=== PATIENT | female | born 1935 | race Caucasian/White ===

== ENCOUNTER 2024-04-02 19:58 | Inpatient (IN) | payer MEDICARE, OTHER, SELFPAY ==
[2024-04-02] VITALS (9 sets, daily range): BP systolic 93–141; BP diastolic 49–97; BMI 26.3; BMI 25.1
[2024-04-02 16:46] LABS: Hemoglobin 13.8 g/dL (12.0-16.0); Mean Corp Hgb Conc. 32.1 g/dL (33.0-37.0); Mean Corpuscular Hgb 26.2 pg (27.0-31.0); Mean Corpuscular Volume 81.7 fL (81.0-99.0); Mean Platelet Volume 9.5 fL (7.4-10.4); Platelet Count 417 10^3/uL (130-400); Red Blood Cell Count 5.26 10^6/uL (4.20-5.40); Red Cell Dist. Width 18.6 % (11.5-14.5)
[2024-04-02 16:47] LABS: White Blood Cell Count 23.6 10^3/uL (4.8-10.8)
--- NOTE | 2024-04-02 16:59 | ED.GENMED ---
History of Present Illness
General
Chief Complaint: Breathing Problem
Source: patient
Exam Limitations: none
Time Seen by Provider: 04/02/24 15:29
Nursing documentation reviewed up to this point in time: agreed with
History of Present Illness
History of Present Illness:
88-year-old female presenting to the emergency department today with concerns of 3 days of shortness of breath. She contacted her PCP and was told it is likely bronchitis. They said if he feels worse go to the ER. Apparently she has been somewhat
tachypneic for multiple weeks according to the family. She is unsure if she had any fevers did have some chills potentially over the past few days.
Review of Systems
Review of Systems
Allergies reviewed?: Yes
All Other Systems: ROS reviewed and negative except as documented in HPI and ROS
Phy Exam
Physical Exam
Physical Exam:
GENERAL: Alert , in no apparent distress
EYE: pupils equal and reactive
NECK: Supple, no significant adenopathy.
ENT: o/p clr, mmm.
CARDIAC: Regular rate and rhythm .
LUNGS: Tachypneic on examination to 30, diminished lung sounds to the left lower lung otherwise clear breath sounds bilaterally,, no wheezes/rales/rhonchi
ABDOMEN: Soft, without focal tenderness, no r/g, no cvat
NEUROLOGICAL: Alert and oriented, no focal neuro deficits
SKIN: Warm and dry, skin intact.
MUSCULOSKELETAL: No edema, well perfused.
PSYCH: Normal and appropriate interaction.
Scores
Heart Failure Risk
Heart Failure Risk Score: Not Applicable
Course
Orders/Labs/Results
Orders:
Orders
04/02/24 15:40
Electrocardiogram (*1) Stat
Reason for Study: Other
Other Reason for Exam: chest pain
EKG- Treatment ONCE
CR Chest Portable - 1 View Urgent
Comment:
Reason For Exam: sob
Reason Study Needs to be Portable: Patient Unstable
04/02/24 16:24
Complete Blood Count/With Diff Urgent
04/02/24 17:06
Comprehensive Metabolic Panel Urgent
Magnesium Urgent
NT-proBNP Urgent
Troponin I Urgent
04/02/24 18:18
Azithromycin 500 mg/250 ml [Zithromax Infusion] 500 mg in 250 ml IV NOW
CefTRIAXone [Rocephin] 2,000 mg IV NOW STA
Abnormal Lab Results
04/02/24 04/02/24
16:24 17:06
WBC 23.6 H 10^3/uL
(4.8-10.8)
MCH 26.2 L pg
(27.0-31.0)
MCHC 32.1 L g/dL
(33.0-37.0)
RDW 18.6 H %
(11.5-14.5)
Plt Count 417 H 10^3/uL
(130-400)
Abs Immat Gran (auto) 0.2 H 10^3/uL
(0-0.05)
Absolute Neuts (auto) 21.0 H 10^3/uL
(1.4-6.5)
Absolute Monos (auto) 1.2 H 10^3/uL
(0.1-0.6)
Immature Gran % 0.8 H %
(0-0.5)
Neutrophils % 88.9 H %
(42.2-75.2)
Lymphocytes % 5.0 L %
(20.5-51.1)
Carbon Dioxide 18 L mmol/L
(22-30)
BUN 19 H mg/dl
(7-17)
Creatinine 1.1 H mg/dL
(0.6-1.0)
Glucose 148 H mg/dl
(70-99)
Magnesium 1.4 L mg/dl
(1.6-2.3)
Total Bilirubin 1.4 H mg/dl
(0.2-1.3)
AST 1022 H* U/L
(14-36)
ALT 464 H U/L
(0-35)
Total Protein 5.4 L g/dl
(6.3-8.2)
Albumin 3.0 L g/dl
(3.5-5.0)
04/02/24 16:24
04/02/24 17:06
Vital Signs
Initial and Last Documented VS:
Initial Vital Signs
Pulse Resp Pulse Ox
104 27 96
04/02/24 15:07 04/02/24 15:07 04/02/24 15:07
Last Documented Vital Signs
Temp Pulse Resp BP Pulse Ox
97.2 F 100 25 106/57 96
04/02/24 16:38 04/02/24 16:15 04/02/24 16:30 04/02/24 15:27 04/02/24 15:07
MDM/Problems Addressed
MDM/Problems Addressed:
88-year-old female presenting to the emergency department today with concerns of worsening shortness of breath over the past few days. Has had some degree of tachypnea over the past few weeks according to family. Was told that she may have
bronchitis by the primary care doctor a few days ago. On arrival here mildly and tachycardic blood pressure in the 100s. Initial labs showing white count of 23.6. Patient does have diminished lung sounds on the left lower lung field. X-ray
showing a pleural effusion. Likely contributing to symptoms. Also elevated BNP examination with leg swelling likely evidence of heart failure. Plan to admit for further treatment and monitoring. Also started on antibiotics concerning the patient
has slightly low blood pressure has been tachypneic also describes some chills White count of 23.6.
*Critical Care Note
Total Time (30-74mins, 75-104mins- exclusive of procedures): Not Applicable
ED Attending Note
-
Portions of this chart may have been created with voice recognition software.� Occasional wrong word or��sound alike� substitutions may have occurred due to the inherent limitations of voice recognition software.
Discharge Plan
Departure
Patient Disposition: Admit
Date of Disposition: 04/02/24
Time of Disposition: 18:28
Admit to: Telemetry
Admit to doctor: Kelli
Presentation/result/management discussed w/ accepting MD/DO: Hospitalist
Patient with high blood pressure during this ER visit?: No
Condition: Good
Covid-19: Not Applicable
Discharge Problem:
Pleural effusion, Transaminitis, Heart failure
Referrals:
Arielle Robertson PA-C [Family Provider] -
Interventions
Interventions:
*Risk Screen - Suicide Last Done: 04/02/24 15:07
*Neglect/Abuse Screening Last Done: 04/02/24 15:07
ED- Fall Risk Assessment Last Done: 04/02/24 16:35
ED- Cardiac Assessment Last Done: 04/02/24 16:35
ED- Pulmonary Assessment Last Done: 04/02/24 16:35
Discharge Date and Time
Print Language: ICELANDIC
[2024-04-02 17:11] LABS: % Basophils 0.2 % (0-2); % Immature Granulocytes 0.8 % (0-0.5); % Monocytes 5.1 % (1.7-9.3); % Neutrophils 88.9 % (42.2-75.2); Absolute Basophils 0.1 10^3/uL (0-0.2); Absolute Immature Granulocytes 0.2 10^3/uL (0-0.05); Absolute Lymphocytes 1.2 10^3/uL (1.2-3.4); Absolute Monocytes 1.2 10^3/uL (0.1-0.6); Nucleated Red Blood Cells % 0 %
[2024-04-02 17:57] LABS: ALT (SGPT) 464 U/L (0-35); Alkaline Phosphatase 63 U/L (38-126); Blood Urea Nitrogen 19 mg/dl (7-17); Calcium 9.2 mg/dl (8.4-10.2); Carbon Dioxide 18 mmol/L (22-30); Chloride 101 mmol/L (98-107); Estimated Creatinine Clearance 31 ml/min; Glucose 148 mg/dl (70-99); Magnesium 1.4 mg/dl (1.6-2.3); Potassium 3.9 mmol/L (3.5-5.1); Sodium 137 mmol/L (135-145); Total Bilirubin 1.4 mg/dl (0.2-1.3); Total Protein 5.4 g/dl (6.3-8.2); eGFR 48.63
[2024-04-02 18:00] LABS: NT-proBNP 17400 pg/ml; Troponin I 0.033 ng/ml
[2024-04-02 18:06] LABS: AST (SGOT) 1022 U/L (14-36)
[2024-04-02] MEDS: ROCEPHIN 2000 MG IV (18:44)
[2024-04-02] MEDS: ZITHROMAX INFUSION 250 IV (18:49)
--- NOTE | 2024-04-02 18:59 | HPS.HSE ---
Family Physician
-
Family Physician: Arielle Robertson
Chief Complaint
-
Shortness of breath.
History of Present Illness
This is an 88-year-old with past medical history significant for diabetes not on antidiabetic medications, hypertension, hyperlipidemia, prior back surgery who presents to the emergency department with worsening shortness of breath over the last few
days.
Due to patient's condition she is unable to provide history. History provided by family members some of whom currently lives with her. Stated that she has been having difficulty breathing for several weeks. She visited her PMD recently for knee
pain and was found to have some lower extremity swelling at that time. She was found to have arthritis and had an injection at that time. Otherwise the family pressure at the providers for additional imaging for shortness of breath. At that time
she was found to have pleural effusion and sent to the emergency department. Patient has no prior history of congestive heart failure. She has no prior history of CAD/AR/stents or strokes. Family thought that she had a recent cough but that
appeared to have cleared. He has had no fevers or chills. No known sick contacts and no recent travel. No history of blood clots. Family does not know of any history of malignancy. She has been having some difficulty sleeping at night and he
has been getting trazodone which has made much more somnolent. Otherwise no medication changes.
On arrival in the ED the patient was afebrile with temp of 99.2, blood pressure was 100/57 with a pulse of 1 rate. She was placed on 4 L nasal cannula to maintain oxygen saturation greater than 95%. Chest x-ray shows a large left-sided pleural
effusion. There is enlarged cardiac silhouette. ECG showed normal sinus rhythm with a left bundle branch block. No acute ischemic changes otherwise. No prior ECGs to compare. Troponin was 0.03. BNP was elevated at 17,000. Patient had a white
count of 23,000 with 89% neutrophils. Chemistries were notable for a creatinine of 1.1 and a BUN of 19. AST was elevated at 1000 ALT of 400. Total bilirubin was 1.4.
Medical History
Past Medical History
Past Medical History: Reports HTN and Hypercholesterolemia
Past Surgical History: Reports Orthopedic (back surgery)
Social History
Tobacco: Non-smoker
Alcohol: Occasional
Drug: None
Personal:
Living: With Family
Employment: Retired
Family History
Family History: Not pertinent
Allergies / Home Medications
Allergies reflects when Allergies were last updated in [facility].
Home Medications with original date entered in [facility]
Allergy/Medication List:
Allergies
Allergy/AdvReac Type Severity Reaction Status Date / Time
No Known Allergies Allergy Unverified 04/02/24 15:09
Home Medications
amlodipine 5 mg tablet 5 mg PO DAILY 04/02/24
famotidine 20 mg tablet 20 mg PO QPM 04/02/24
fenofibric acid (choline) 135 mg capsule,delayed release 135 mg PO DAILY 04/02/24
losartan 100 mg tablet 100 mg PO QPM 04/02/24
metoprolol succinate 25 mg tablet,extended release 24 hr 25 mg PO DAILY 04/02/24
omega 5-rga-lya-fish oil 1,000 mg (120 mg-180 mg) capsule (Fish Oil) 1 cap PO BID 04/02/24
omeprazole 40 mg capsule,delayed release 40 mg PO DAILY 04/02/24
rosuvastatin 5 mg tablet 5 mg PO DAILY 04/02/24
vitamins A,C,R-czjs-bkffee 4,296 mcg-226 mg-90 mg capsule (PreserVision AREDS) 1 cap PO DAILY 04/02/24
Review of Systems
-
History Source: Family
Constitutional: Reports Sleep Disturbance
EENT: Reports No Symptoms
Respiratory: Reports Trouble Breathing
Cardiac: Reports No Symptoms
Abdomen/GI: Reports No Symptoms
: Reports No Symptoms
Musculoskeletal: Reports No Symptoms
Skin: Reports No Symptoms
Neurological: Reports No Symptoms
Endocrine: Reports No Symptoms
Hematologic/Lymphatic: Reports No Symptoms
Psych: Reports No Symptoms
Physical Exam
Vital Signs
Vital Signs
Temp Pulse Resp BP Pulse Ox
97.2 F 100 25 106/57 96
04/02/24 16:38 04/02/24 16:15 04/02/24 16:30 04/02/24 15:27 04/02/24 15:07
Physical Exam
General: Well Developed and Respiratory Distress
HEENT: NormoCephalic, Moist mucous membranes, Atraumatic and PERRLA
Respiratory: Decreased Breath Sounds
Cardiac: S1/S2 and Regular Rhythm
Breast: Deferred by me
GI: Soft, Non Tender and Non Distended
Rectal: Deferred by Provider
Genito-urinary: Other (No urine output so far in ED)
Musculoskeletal: No Clubbing, No Cyanosis, Edema, Left Lower Extremity (2+) and Edema, Right Lower Extremity (1+)
Skin: Dry
Neuro: Alert and Oriented (oriented to person)
Hematologic/Lymphatic: No Lymphadenopathy
Psych: Calm
Laboratory Results
-
04/02/24 16:24
04/02/24 17:06
Laboratory Results
Total Bilirubin 1.4 mg/dl (0.2-1.3) H 04/02/24 17:06
AST 1022 U/L (14-36) H* 04/02/24 17:06
ALT 464 U/L (0-35) H 04/02/24 17:06
Alkaline Phosphatase 63 U/L (38-126) 04/02/24 17:06
Troponin I 0.033 ng/ml 04/02/24 17:06
Data Reviewed
-
Diagnostic Radiology: Image Personally Visualized and interpreted
Medical Tests (Nuc Med, Echo, EKG etc): Image Personally Visualized and interpreted
Lab Data: Labs Reviewed by me
Old Records: Reviewed
Impression/Plan
-
IMPRESSION:
88 y.o with fairly benign past medical history notable for HTN, HLD, DM II (not currently on meds) and prior UTIs, mild/moderate dementia per family presenting to ED with subacute sob and a large left pleural effusion. She is afebrile, has no
cough, chills but has a leukocytosis to 23. She has elevated BNP and peripheral edema suggestive of congestive heart failure. BP is relatively low at 90/50 compared to prior but otherwise stable. She has moderate oxygen requirements.
PLAN:
Pleural Effusion - Suspect secondary to volume overload versus malignant effusion given unilateral presentation. Seeing her labs earlier this year, she has normal LFTs so unlikely from cirrhosis or renal failure. Moderate oxygen requirement but
likely ok for tap in am.
- admit to IMU
- continue supplemental oxygen
- attempt diuresis
- IR consult for diagnostic and therapeutic tap in am
CHF - Elevated BNP and volume overload. Cannot rule out new NICM secondary to acute viral infection versus new ischemic cardiomyopathy vs valvular insufficiency
- viral panel
- check tsh/free t4
- holding losartan and norvasc for now
- continue metoprolol with hold parameters
- lasix 40mg iv q 12 w/ hold parameters
- echo
- may need ischemic w/u
- cardiology consult
Leukocytosis - Unexplained leukocytosis at this point. No obvious source of infection but hx of UTI and cannot rule out pna. No recent hospitalization
- ceftriaxone/azithromycin for now
- u/a pending
- blood cultures if febrile
- MRSA swab.
Transaminitis - Given volume overload, suspect congestive hepatopathy
- RUQ u/s
- check acute hepatitis panel
DVT PPX - heparin sq
Code status - DNR per discussion with Family members present.
[2024-04-02 20:05] LABS: COVID-19 Antigen Negative (Negative)
[2024-04-02] MEDS: LASIX 40 MG IV (21:34)
[2024-04-03] VITALS (37 sets, daily range): BP systolic 81–160; BP diastolic 32–88; PULSE 75–77; O2SAT 98; BMI 23.5
--- NOTE | 2024-04-03 01:00 | PTCARENOTE ---
Pt received from ED RN. Pt AA)x3, forgetful at times, tired. Family at bedside, family assisted in completing admission questions with Pts consent. Pt NSR on monitor with BBB. Pt on 4L 02, mouth breathing, encouraged to breath via nose. Sacral wound
present on admission, care provided, WOC consulted. Assessment as documented, call light in reach.
[2024-04-03] MEDS: HEPARIN 5000 UNITS SC ×2 (02:16→08:02)
[2024-04-03] MEDS: DUONEB 3 ML INH (02:45)
--- NOTE | 2024-04-03 03:03 | PTCARENOTE ---
Increasing expiratory wheezes and increased work of breathing assessed. Satting 93% on 4L. [employer]GRAM MANAGER contacted for PRN breathing tx. Order received. RT contacted to administer tx.
--- NOTE | 2024-04-03 03:06 | PTCARENOTE ---
Pt expressed nee to urinated. Pt provided with BP, no output assessed. Bladder scan shows only 25 ml urine. Care is ongoing.
[2024-04-03 06:14] LABS: ALT (SGPT) 528 U/L (0-35); Albumin 2.7 g/dl (3.5-5.0); Alkaline Phosphatase 58 U/L (38-126); Direct Bilirubin 0.4 mg/dl (0.0-0.4); Magnesium 1.3 mg/dl (1.6-2.3); Total Bilirubin 0.5 mg/dl (0.2-1.3); Total Protein 4.9 g/dl (6.3-8.2)
[2024-04-03 06:17] LABS: AST (SGOT) 1226 U/L (14-36)
[2024-04-03 06:29] LABS: Procalcitonin 7.26 ng/ml (0.0-0.25)
[2024-04-03 06:32] LABS: TSH Reflex To Free T4 2.75 uIU/ml (0.47-4.68)
--- NOTE | 2024-04-03 07:13 | PTCARENOTE ---
AST and ALT critical with am labs, procal 7.25 , [employer]GER [employer] notified. abd u/s ordered for am.
[2024-04-03] MEDS: PROTONIX 40 MG PO (08:01)
[2024-04-03] MEDS: OCUVITE SOFTGEL 1 CAP PO (08:02)
[2024-04-03] MEDS: CRESTOR 5 MG PO (08:02)
[2024-04-03] MEDS: LASIX 40 MG IV (08:02)
[2024-04-03] MEDS: TOPROL XL 25 MG PO (08:02)
[2024-04-03 10:10] LABS: Body Fluid pH 7.39
[2024-04-03 10:22] LABS: Body Fluid Mononuclear 48.1 %; Body Fluid Polymorphonuclear 51.9 %; Body Fluid WBC 678 /CUMM
[2024-04-03 10:23] LABS: Body Fluid LDH 160 U/L; Body Fluid Protein 2.2 g/dl
[2024-04-03 10:25] LABS: Body Fluid Second Tech HB
--- NOTE | 2024-04-03 10:30 | WOUNDNOTE ---
[facility] RN note: Patient admitted with CHF. s/p thoracentesis today. She lives with her son.
See H&P for complete history.
PMH: DM, HTN, back surgery, UTI's, dementia.
Wound Location and type/assessment: Patient admitted with: coccyx deep dermal stage 2 pressure injury. Small scabbed stage 1 sacral pressure injury. Several small scabbed areas on sacral/buttocks suspect r/t patient scratching vs stage 2 pressure.
R groin yeast appearing rash. Heels blanchable red/boggy. Her daughter who is visiting stated her mother spends a lot of time in her recliner at home. She does sleep in her bed at night.
Appetite: Currently NPO for a test, otherwise good.
Pressure redistribution devices in place: [employer] air bed. She turns in bed with assistance.
Plan: Sacral shaped silicone border foam maintained. Protective foam applied to heels. Patient turned to R semi side lying position with help from PRIMO Okeefe. Heels off bed with air chair cushion. Instructed 2 daughters pressure injury prevention
measures and to have patient take air chair cushion when discharged.
Confirmed orders with Dr. Castelan and discussed with PRIMO Okeefe.
Care plan to be updated and will follow as needed.
Note to case management requested for discharge: VN if goes home.
Recommend follow up at wound care center upon discharge.
[2024-04-03] MEDS: OMNIPAQUE 50 ML PO (10:42)
[2024-04-03] MEDS: MAGNESIUM SULFATE 50 IV (11:07)
[2024-04-03 11:41] LABS: Hepatitis B Surface Antigen Negative (Negative)
[2024-04-03 11:46] LABS: Glycohemoglobin (HgbA1c) 6.2 % (4.0-5.6)
[2024-04-03 12:00] LABS: Hepatitis B Core Ab, Total Negative (Negative); Hepatitis B Surface Antibody Negative; Hepatitis C Antibody Negative (Negative)
[2024-04-03] MEDS: ULTRAM 25 MG PO (12:48)
--- NOTE | 2024-04-03 14:08 | W.PN.HOSP.TC ---
Today's Communication/Plan
-
see note
Assessment / Plan
Assessment / Plan
TTE
Mild/moderately reduced left ventricular systolic function. Left ventricular
ejection fraction is 40-45%.
Global hypokinesis with abnormal (paradoxical) septal motion consistent with
left bundle branch block.
Mild/moderate eccentric mitral regurgitation.
Mild aortic regurgitation.
Large pericardial effusion. There is evidence of RA collapse.
CT a/p
Moderate right pleural effusion with adjacent compressive atelectasis.
Small left pleural effusion after thoracentesis. Adjacent atelectasis. No evidence for pneumothorax within the left lower chest.
Moderate to large pericardial effusion as described. Elevation right hemidiaphragm. Fatty infiltration of the liver.
No evidence for bowel obstruction. No evidence of free intraperitoneal air.
2 mm probable nephrolith within the central lower pole the right kidney. Bilateral small renal cysts, including a hyperdense cyst arising from the lower pole the left kidney. No further imaging follow-up for these small cysts is needed.
Bony degenerative changes as described.
Moderate diffuse subcutaneous edema. Small amount of free fluid within the pelvic cul-de-sac.

1. Sepsis -Hypotension/leukocytosis
-Patient brought in mainly for shortness of breath
-WBC 21k, neutrophil dominant, procal 7.26
-Chest x-ray showing bilateral effusion mainly on the left side
-CT abdomen pelvis report as above
-Status post left-sided thoracentesis of 1.1 L fluid, low concern of infection based on differential
-Check UA/Urine cs
-Blood cs if spikes fever
-Follow-up pericardiocentesis fluid study as well
-Maintained on empiric Rocephin/azithromycin for possible pulmonary souce
2. Pericardial effusion
-Echocardiogram showing large pericardial effusion with evidence of RA collapse
-Cardiology planning to take patient to [facility] for pericardiocentesis
3. Acute systolic heart failure
Left bundle branch block
-proBNP 17,000, no previous history of CAD/NE
-Initial troponin negative in ER, follow-up troponin pending
-Patient started on IV Lasix, vitally stable and may need to be held if patient develops hypotension.
4. Acute hepatitis
-ALT/530/AST 1230. Normal ALP/T bilirubin
-Suspected congestive hepatopathy from cardiac tamponade
-Check hepatitis panel
-Right upper quadrant ultrasound pending, no major structural abnormality on CTAP
-Hold Crestor/Tylenol for now
-GI evaluation requested
5. Sacral/coccyx stage I/II pressure inj -POA
-No signs of infection on exam
-Wound care nurse evaluated
6. Type II DM - new dx
-Hemoglobin A1c of 6.2
-Maintain on insulin sliding scale
7. Suspected urinary retention
-Continue bladder scan/straight cath protocol
DVT PPX - heparin
DNR
Total time spent : 58 mins
I personally saw and examined the patient.
I have reviewed all diagnostic interpretations and treatment plans as written.
Time includes patient management by me, time spent at the patients bedside, time to review lab and imaging results, discussing patient care, documentation in the medical record, and time spent with the family or caregiver and discussing care plan
with RN/Consultants.
Anticipated Discharge: > 48 hours
Subjective/Interval History
-
Date of Service: April 03, 2024
Patient somnolent, waking up with appropriate answers
Some left shoulder pain
Denies having any abdominal pain/nausea/vomiting
Afebrile overnight
Objective Data
-
Labs:
Laboratory Results
04/03/24 04/03/24
05:11 09:49
WBC Pending
Hgb Pending
Hct Pending
Plt Count Pending
PT Pending
INR Pending
Sodium Pending
Potassium Pending
Chloride Pending
Carbon Dioxide Pending
BUN Pending
Creatinine Pending
Glucose Pending
Calcium Pending
Total Bilirubin 0.5
AST 1226 H*
ALT 528 H*
Alkaline Phosphatase 58
Vital Signs:
Vital Signs
Temp Pulse Resp BP Pulse Ox
98.3 F 81 19 156/58 93
04/03/24 11:24 04/03/24 08:48 04/03/24 08:48 04/03/24 08:48 04/03/24 08:48
Review of Systems
-
Respiratory: Reports No Symptoms
Cardiac: Reports No Symptoms
Abdomen/GI: Reports No Symptoms
Physical Exam
-
General: Comfortable and Obese
HEENT: Oxygen
Respiratory: Clear to Auscultation
Cardiac: Regular Rhythm and S1/S2; Negative Murmur or Rub
GI: Soft, Nontender and Nondistended
Musculoskeletal: No Edema
Neuro: Awake, Alert, Oriented, No Motor Deficits and Nonfocal/Grossly Intact
Psych: Calm
--- NOTE | 2024-04-03 14:29 | CON.GI ---
Addendum entered and electronically signed by Ngoc Merida Do, MD 04/03/24 18:12:
Correction:
I personally performed a history and physical exam of the patient and discussed management with the resident. I reviewed the resident's note and agree with the documented findings and plan of care HPI/CC.
Addendum entered and electronically signed by Ngoc Merida Do, MD 04/03/24 18:11:
I saw and examined the patient.
The SENIOR QUALITY TECHNICIAN's note was reviewed and I agree with the note.
Comment: Ladi is an 88yo W with diet controlled DM, HTN and HL who presented for worsening SOB and bilateral LE swelling. GI consulted for elevated LFTs. She denies h/o liver disease in past. No new meds or ETOH intake. She denies herbals.
During this hospitalization she had thoracentesis and workup for new CHF. Vitals stable but upon admission mildly hypotensive. Exam abd soft, ND, NTTP, NABS, decrease BS in bases. Labs reviewed LFTs in hepatocellular pattern.
Impression
- Elevated LFT in hepatocellular pattern
ddx includes drug induce liver injury from acetaminophen use and congestive hepatopathy
- Hepatic steatosis
- SOB
- Pleural and pericardial effusion
- CHF
- DM
- HTN
- HL
- Elevated procalcitonin and WBC
Recommendations
- Serial LFTs
- Await viral hepatitis serology
- Stop acetaminophen check level
- Check RUBÉN
- Optimize CHF and hemodynamics
- May benefit from outpatient fibroscan
Will follow with you
Original Note:
Consultation
-
Date/Time Consultation Requested: 04/03/24,10:04
Date/Time Consultation Performed: 04/03/24,15:00
Requesting Provider: Dr.Janak Castelan
Performing Provider: Dr.Hannah Estrella
Reason for Consultation: Elevated liver enzymes
Medical History
Chief Complaint / HPI
Chief Complaint: Shortness of breath
History of Present Illness:
Patient is an 88-year-old female with past medical history significant for diabetes ,essential hypertension and hyperlipidemia. She she lives with her son and her daughters help in taking care of her.
She regularly visits her primary care physician and was recently treated for bronchitis and was told to go to the emergency in case of worsening of shortness of breath. She presented to the emergency with complaints of worsening shortness of
breath for the last 3 days along with bilateral pedal edema and weakness.SOB was gradual,progressive and patient declined from her baseline function status An EKG done in the ER showed left bundle branch block but there was no previous EKG
available to compare, a complete blood count showed leukocytosis with a TLC count of 23.6, procalcitonin 7.2, her BNP was elevated up to 17,000. A chest x-ray was done that showed bilateral pleural effusion, pleurocentesis was done and the fluid
was sent for evaluation. GI was consulted for elevated liver enzymes with an ALT of 528 and AST of 1226 with normal bilirubin levels.
She complains of joint pains for which she uses about 6 Tylenol tablets a week, statin for her hyperlipidemia. She occasionally will maybe 1 glass of wine on holidays. She does not smoke or use any other drugs, no history of tattooing or body
piercing, she denies any nausea, vomiting, abdominal pain, indigestion, heartburn, diarrhea, constipation, recent weight gain or loss, any blood in stools or vomitus, and melena. She does not take any herbal supplements. She has never been
screened for hepatitis B or C, she denies any personal or family history of liver disease or blood disorders and she did not have any blood transfusions in the recent past.
She had a colonoscopy done in 2015 that showed multiple small diverticuli in the sigmoid. She did not have any endoscopies done. She has generalized body edema, CT abdomen showed bilateral pleural effusion along with pericardial effusion, there
was fatty infiltration of the liver but complete study of liver could not be done due to artifacts and ultrasound of the right upper quadrant is pending.
Past Medical History
Past Medical History: HTN, Hypercholesterolemia and NIDDM
Past Surgical History: Orthopedic (Back surgery)
Social History
Tobacco: Former Smoker (in her teens,Quit more than 50 years ago)
Alcohol: Occasional
Drug: None
Personal:
Living: With Family
Employment: Retired
Family History
Family History: Reviewed & Not Pertinent
Allergies / Home Medications
Allergy/AdvReac Type Severity Reaction Status Date / Time
No Known Allergies Allergy Unverified 04/02/24 15:09
�Medication �Instructions �Recorded
amlodipine 5 mg tablet 5 mg PO DAILY Blood Pressure 04/02/24
famotidine 20 mg tablet 20 mg PO QPM Gastrointestinal Issue 04/02/24
fenofibric acid (choline) 135 mg 135 mg PO DAILY High Cholesterol 04/02/24
capsule,delayed release
losartan 100 mg tablet 100 mg PO QPM Blood Pressure 04/02/24
metoprolol succinate 25 mg 25 mg PO DAILY Blood Pressure 04/02/24
tablet,extended release 24 hr
omega 0-pqn-cib-fish oil 1,000 mg 1 cap PO BID Supplement 04/02/24
(120 mg-180 mg) capsule (Fish Oil)
omeprazole 40 mg capsule,delayed 40 mg PO DAILY Gastrointestinal 04/02/24
release Issue
rosuvastatin 5 mg tablet 5 mg PO DAILY High Cholesterol 04/02/24
vitamins A,C,D-fkdv-vdfoeq 4,296 1 cap PO DAILY Supplement 04/02/24
mcg-226 mg-90 mg capsule
(PreserVision AREDS)
Review of Systems
-
All other systems: A 12 pt ROS was Negative except as stated above in HPI
Vital Signs
Temp Pulse Resp BP Pulse Ox
98.3 F 81 19 156/58 97
04/03/24 11:24 04/03/24 08:48 04/03/24 08:48 04/03/24 08:48 04/03/24 09:00
Physical Exam
Exam
General: Other (Looks lean and weak and appears confused)
HEENT: Anicteric and Moist Mucous Membranes
Respiratory: Clear and Wheezes (No wheeze or rhonchi)
Cardiac: S1/S2, Regular Rhythm and Other (No murmur)
GI: Soft, Non Tender, Normal Bowel Sounds and Distended (Mildly distended)
Genito-urinary: No Costovertebral Tender
Musculoskeletal: Edema (Bilateral pitting edema of legs and feet)
Skin: Warm and Dry
Neuro: Awake and Other (Appears to be confused)
Hematologic/Lymphatic: No Lymphadenopathy
Psych: Calm and Other (Cooperative)
Results
WBC 23.6 10^3/uL (4.8-10.8) H 04/02/24 16:24
Hgb 13.8 g/dL (12.0-16.0) 04/02/24 16:24
Hct 43.0 % (37.0-47.0) 04/02/24 16:24
MCV 81.7 fL (81.0-99.0) 04/02/24 16:24
Plt Count 417 10^3/uL (130-400) H 04/02/24 16:24
Absolute Neuts (auto) 21.0 10^3/uL (1.4-6.5) H 04/02/24 16:24
Sodium 137 mmol/L (135-145) 04/02/24 17:06
Potassium 3.9 mmol/L (3.5-5.1) 04/02/24 17:06
Chloride 101 mmol/L (98-107) 04/02/24 17:06
Carbon Dioxide 18 mmol/L (22-30) L 04/02/24 17:06
BUN 19 mg/dl (7-17) H 04/02/24 17:06
Creatinine 1.1 mg/dL (0.6-1.0) H 04/02/24 17:06
Calcium 9.2 mg/dl (8.4-10.2) 04/02/24 17:06
Total Bilirubin 0.5 mg/dl (0.2-1.3) 04/03/24 05:11
AST 1226 U/L (14-36) H* 04/03/24 05:11
ALT 528 U/L (0-35) H* 04/03/24 05:11
Alkaline Phosphatase 58 U/L (38-126) 04/03/24 05:11
Hep Bs Antibody Negative 04/03/24 05:11
Hep B Core Total Ab Negative (Negative) 04/03/24 05:11
Hepatitis C Antibody Negative (Negative) 04/03/24 05:11
Diagnostic Image Results:
Prior GI Procedures:
EGD: None
Colonoscopy: 2015, diverticulosis in sigmoid
Assessment / Plan
-
IMPRESSION
Patient is a 88-year-old female with past medical history of hypertension, hyperlipidemia, diabetic with lifestyle modifications, recently had steroid injections in her knees for pain. She is in fluid overload, with bilateral pleural effusion,
pericardial effusion, bilateral pedal edema, difficulty in breathing and weakness. She has a leukocyte count of 23.6 with 89% neutrophils, procalcitonin 7.25, elevated ALT 528 and AST 1226 with normal bilirubin levels. She is admitted for the
workup of sepsis/heart failure. GI involved for evaluation of elevated liver enzymes.
ASSESSMENT
Elevated liver enzymes
Patient has various metabolic conditions including diabetes, hypertension, hyperlipidemia
She takes about 6 tablets of Tylenol per week for her arthritis/back pain
She takes 5 mg of rosuvastatin at night daily
She has never been screened for hepatitis AB and C
No personal or family history of liver disease/genetic disorders
She drinks alcohol occasionally
Denies any herbal medications, any tattooing, any body piercing
She denies any nausea or vomiting ,weight loss, weight gain, melena, blood in stools
CT abdomen shows fatty infiltration of the liver, limited study due to artifacts
ALT 528, AST 1226, ALP 58, total bilirubin 0.5
INR pending
Ultrasound of right upper quadrant pending
Pleural effusion secondary to heart failure?
No history of ischemic heart disease
Hypertensive, diabetic
Hyperlipidemia's
Presented with shortness of breath
Chest x-ray bilateral pleural effusions
CT abdomen-bilateral pleural effusion and pericardial effusion
proBNP 17,000
Left ventricular ejection fraction 40 to 45%04/03
EKG left bundle branch block
On furosemide 40 mg IV twice daily
Pericardiocentesis in plan
SEPSIS
Total leukocyte count 23.6
Procalcitonin 7.25
Blood cultures pending
On Rocephin and Zithromax
PLAN
Currently patient has no GI symptoms
Patient has some risk factors like metabolic syndrome/heart failure?/Sepsis/Tylenol use/statin use
Discontinue Tylenol and statin
Repeat liver function tests
Follow INR/albumin
Follow hepatitis A, B, C screenings
Manage sepsis as per medical team
Manage heart failure as per medical team
Diabetes mellitus--HbA1c 6.2
Hypertension--continue home medications
Hyperlipidemia's-discontinue statin
Arthritis-discontinue Tylenol
-
-
Thank you for consultation and allowing me to participate in the patient's care. Please call the information security associate GI physician during the after hours with any questions or concerns.
[2024-04-03 14:39] LABS: Hepatitis A Antibody, Total Negative (Negative)
[2024-04-03 17:33] LABS: Body Fluid Hematocrit < 1.0 %
--- NOTE | 2024-04-03 17:34 | PTCARENOTE ---
Pt received from petroleum refinery laborer s/p pericardiocentesis. 610mL drained during procedure. Pt returned with gravity drain. Serosanguineous fluid in collection container. Procedural site CDI. VSS. Echo s/p pericardiocentesis showing trace pericardial effusion
compared to earlier echo which showed large pericardial effusion. Pt resting in bed. Family at bedside.
[2024-04-03 17:40] LABS: Body Fluid Glucose < 30 mg/dl; Body Fluid Protein 3.8 g/dl
[2024-04-03 17:41] LABS: Body Fluid LDH 1658 U/L
--- NOTE | 2024-04-03 18:05 | ITS.CL.PN ---
Luster Repairer - Procedure Note
Procedure
Procedure Note:
PERICARDIOCENTESIS REPORT
Date of Procedure: 04/03/2024
Referring: Abisai Modi MD
�
PROCEDURE SUMMARY:
Successful pericardiocentesis via subxiphoid approach with removal of 610 mL of yellowish-brown turbid fluid from the pericardial space
�
DESCRIPTION OF PROCEDURE: The patient was referred for diagnostic and therapeutic pericardiocentesis. Using a micropuncture needle, the pericardial space was entered on the first attempt via subxiphoid approach. A 6 [place] sheath was placed into
the pericardial space followed by a pigtail catheter. 60 cc of very turbid yellowish-brown fluid was removed and sent for the usual suspects including cell count, culture, protein, LDH, TB. The majority of the fluid was hand-delivered to the
pathology lab for cytology. Bubble contrast injection demonstrated clean entry into the pericardium as seen on echocardiography. At the conclusion of the procedure there was only trace pericardial effusion visible. There were no procedural
complications.
�
�
Radiation (mGy): 2.5
DAP (cm2.Gy): 0.1
�
CONCLUSIONS: Successful pericardiocentesis with removal of 610 mL yellow is brown turbid fluid from the pericardial space. A drain was left in and will be evaluated for removal in 24 hours
�
Copy to: Abisai Modi MD, Arielle Robertson PA-C ([email or web address])
�
Pedro Horner MD, FORMERLY [facility], [facility]
�
--- NOTE | 2024-04-03 18:06 | PTCARENOTE ---
Pt with no urine output. Bladder scan showed 441mL. Straight cath per protocol. 450mL drained.
[2024-04-03 18:12] LABS: Urine Albumin Trace (Neg - Trace); Urine Bilirubin Negative (Negative); Urine Character Clear (Clear); Urine Color Yellow; Urine Glucose Negative (Negative); Urine Ketone Negative (Negative); Urine Leukocyte Negative (Negative); Urine Nitrite Negative (Negative); Urine Occult Blood Negative (Negative); Urine Urobilinogen Negative (Neg - 1+)
[2024-04-03] MEDS: FLOMAX 0.4 MG PO (18:34)
[2024-04-03] MEDS: ZITHROMAX 500 MG PO (20:51)
[2024-04-03] MEDS: ROCEPHIN 1000 MG IV (20:51)
[2024-04-03] MEDS: STERILE WATER FOR INJECTION 10 ML IV (20:52)
[2024-04-03] MEDS: DESENEX/MITRAZOL/ZEASORB 1 APPLIC TOPICAL (20:57)
[2024-04-03 22:21] LABS: Blood Urea Nitrogen 26 mg/dl (7-17); Calcium 8.8 mg/dl (8.4-10.2); Carbon Dioxide 19 mmol/L (22-30); Chloride 100 mmol/L (98-107); Creatine Phosphokinase 27 U/L (30-135); Estimated Creatinine Clearance 25 ml/min; Glucose 113 mg/dl (70-99); LDH 379 U/L (120-246); Potassium 3.9 mmol/L (3.5-5.1); Sodium 134 mmol/L (135-145); eGFR 36.41
--- NOTE | 2024-04-03 23:42 | W.PN.UPDATE ---
Update Note
Progress Note Update
hr 120-140, bp 131/78, denied sob or chest pain.
EKG with a-fib RVR. CBC, bmp, mag ordered. One time order of IV Lopressor 5 mg was given.
K is 3.4 repleted as needed.
[2024-04-03] MEDS: LOPRESSOR 5 MG IV (23:47)
--- NOTE | 2024-04-03 23:59 | PTCARENOTE ---
Monitor alarming HR of 150-160's and interpreting rhythm as afib. EKG obtained confirming Pt in afib with rvr. WEATHER TEACHER made aware. EKG sent to CONSTRUCTION REPRESENTATIVE. order for labs received, obtained and sent. Order received for 5mg Lopressor IV. Medication administered.
Post administration BP 118/63(80). HR 110. Care is ongoing.
[2024-04-04] VITALS (39 sets, daily range): BP systolic 79–135; BP diastolic 33–107; BMI 24.9
[2024-04-04 00:19] LABS: % Basophils 0.2 % (0-2); % Eosinophils 0.2 % (0-6); % Immature Granulocytes 0.4 % (0-0.5); % Lymphocytes 13.4 % (20.5-51.1); % Monocytes 5.5 % (1.7-9.3); % Neutrophils 80.3 % (42.2-75.2); Absolute Lymphocytes 1.5 10^3/uL (1.2-3.4); Absolute Monocytes 0.6 10^3/uL (0.1-0.6); Hemoglobin 12.5 g/dL (12.0-16.0); Mean Corp Hgb Conc. 32.1 g/dL (33.0-37.0); Mean Corpuscular Hgb 25.9 pg (27.0-31.0); Mean Corpuscular Volume 80.7 fL (81.0-99.0); Mean Platelet Volume 9.9 fL (7.4-10.4); Nucleated Red Blood Cells % 0 %; Platelet Count 280 10^3/uL (130-400); Red Blood Cell Count 4.83 10^6/uL (4.20-5.40); Red Cell Dist. Width 18.6 % (11.5-14.5); White Blood Cell Count 11.2 10^3/uL (4.8-10.8)
[2024-04-04 00:28] LABS: Blood Urea Nitrogen 33 mg/dl (7-17); Calcium 8.1 mg/dl (8.4-10.2); Carbon Dioxide 23 mmol/L (22-30); Chloride 99 mmol/L (98-107); Estimated Creatinine Clearance 22 ml/min; Glucose 107 mg/dl (70-99); Magnesium 1.9 mg/dl (1.6-2.3); Potassium 3.4 mmol/L (3.5-5.1); Sodium 134 mmol/L (135-145); eGFR 31.02
--- NOTE | 2024-04-04 00:54 | PTCARENOTE ---
Pt returned to NSR in the 60's. SENIOR VALIDATION ENGINEER notified of lab results.
[2024-04-04] MEDS: KLOR-CON 40 MEQ PO (02:36)
[2024-04-04 05:39] LABS: Hematocrit 36.4 % (37.0-47.0); Hemoglobin 11.7 g/dL (12.0-16.0); Mean Corp Hgb Conc. 32.1 g/dL (33.0-37.0); Mean Corpuscular Hgb 26.2 pg (27.0-31.0); Mean Corpuscular Volume 81.4 fL (81.0-99.0); Mean Platelet Volume 9.8 fL (7.4-10.4); Platelet Count 278 10^3/uL (130-400); Red Blood Cell Count 4.47 10^6/uL (4.20-5.40); Red Cell Dist. Width 18.3 % (11.5-14.5); White Blood Cell Count 10.3 10^3/uL (4.8-10.8)
[2024-04-04 05:59] LABS: ALT (SGPT) 270 U/L (0-35); AST (SGOT) 231 U/L (14-36); Acetaminophen < 10 ug/ml (10-30); Albumin 2.4 g/dl (3.5-5.0); Alkaline Phosphatase 57 U/L (38-126); Blood Urea Nitrogen 36 mg/dl (7-17); Calcium 8.1 mg/dl (8.4-10.2); Carbon Dioxide 21 mmol/L (22-30); Chloride 101 mmol/L (98-107); Estimated Creatinine Clearance 24 ml/min; Glucose 100 mg/dl (70-99); Magnesium 1.9 mg/dl (1.6-2.3); Potassium 4.7 mmol/L (3.5-5.1); Sodium 134 mmol/L (135-145); Total Bilirubin 0.6 mg/dl (0.2-1.3); Total Protein 4.6 g/dl (6.3-8.2); eGFR 33.52
[2024-04-04] MEDS: TOPROL XL 25 MG PO ×2 (08:39→11:53)
[2024-04-04] MEDS: FLOMAX 0.4 MG PO (08:39)
[2024-04-04] MEDS: OCUVITE SOFTGEL 1 CAP PO (08:39)
[2024-04-04] MEDS: PROTONIX 40 MG PO (08:39)
[2024-04-04] MEDS: DESENEX/MITRAZOL/ZEASORB 1 APPLIC TOPICAL ×2 (08:39→22:35)
--- NOTE | 2024-04-04 10:18 | W.PN.GI.CBS2 ---
Today's Communication / Plan
-
LFTs improved dramatically suggestive of cause as congestive hepatopathy
GI will sign off as no further inpatient liver workup
Consider fibroscan outpatient basis. FU with me OP next available (d/c paperwork updated)
Assessment / Plan
-
Ladi is an 88yo W with diet controlled DM, HTN and HL who presented for worsening SOB and bilateral LE swelling. GI consulted for elevated LFTs. She denies h/o liver disease in past. No new meds or ETOH intake. She denies herbals. During this
hospitalization she had thoracentesis and workup for new CHF. Labs reviewed LFTs in hepatocellular pattern. CTAP with hepatic steatosis
Impression
- Elevated LFT in hepatocellular pattern
Likely from congestive hepatopathy given rapid improvement and possibly acetaminophen use
acetaminophen level negative
viral hepatitis serologies negative
- Hepatic steatosis
- SOB
- Pleural and pericardial effusion
- CHF
- DM
- HTN
- HL
- Elevated procalcitonin and WBC
Recommendations
- Serial LFTs, much improved
- Optimize CHF and hemodynamics
- May benefit from outpatient fibroscan
- Viral hepatitis serologies and acetaminophen levels negative
No new GI recs. Will sign off please call for questions .
Subjective
Subjective
Date of Service: April 04, 2024
She had pericardiocentesis yesterday. Overnight had rapid afib. Today eating breakfast denies abd pain nausea or vomiting.
Objective
Data Reviewed
Laboratory Data:
Laboratory Results
04/04/24 05:18
04/04/24 05:18
Laboratory Results
PT Cancelled 04/03/24 09:49
INR Cancelled 04/03/24 09:49
Magnesium 1.9 mg/dl (1.6-2.3) 04/04/24 05:18
Total Bilirubin 0.6 mg/dl (0.2-1.3) 04/04/24 05:18
AST 231 U/L (14-36) H 04/04/24 05:18
ALT 270 U/L (0-35) H 04/04/24 05:18
Alkaline Phosphatase 57 U/L (38-126) 04/04/24 05:18
Vital Signs and I&O:
Vital Signs
Temp Pulse Resp BP Pulse Ox
97.5 F 130 18 107/77 94
04/04/24 07:24 04/04/24 08:39 04/04/24 07:24 04/04/24 05:45 04/04/24 05:45
I&O
04/03/24 04/04/24 04/05/24
06:59 06:59 06:59
Intake Total 240 / 240
Output Total 950 / 950
Balance -710 / -710
Physical Exam
Physical Exam
GEN: No acute distress, conversant, pleasant
HEENT: anicteric, extraocular movements intact, clear oropharynx without exudates
GI: soft, non-distended, not tender to palpation, normal active bowel sounds, no hepatosplenomegaly
EXT: warm, well perfused, 2+ pitting edema bilaterally
NEURO: AAOx3, non-focal
--- NOTE | 2024-04-04 10:39 | W.PN.CD ---
Today's Communication / Plan
-
discussed with interventional cards: pericardial drain will be removed today (family at bedside and updated)
repeat echo Saturday
IV lasix today
Impression / Plan
-
Pericardial effusion
-s/p pericardiocentesis for 610cc on 04/03
-ddx: HF, malignancy
-drain out today
-f/u echo Saturday
Paroxysmal A fib with RVR, new
-increase Toprol XL
-CHADS2-VASC = 6. No OAC yet, with pericardial drain being pulled today, then repeat echo Saturday
Cardiomyopathy (unspecified) EF 40-45%, with acute HFmEF
-start with Toprol XL titration
-start with lasix 40mg IV daily, with close monitoring of labs, weight, tele; now that pericardial effusion is drained
HTN
-hold home losartan and amlodipine to allow titration of Torpol
LBBB
Mild/moderate MR
Mild AR
Physical Exam
Vital Signs/Labs
Vital Signs
Temp Pulse Resp BP Pulse Ox
97.5 F 76 20 102/74 94
04/04/24 07:24 04/04/24 10:30 04/04/24 10:30 04/04/24 10:00 04/04/24 10:30
04/03/24 04/04/24 04/05/24
06:59 06:59 06:59
Actual Weight 64.1 kg 68 kg
04/04/24 05:18
04/04/24 05:18
PT Cancelled 04/03/24 09:49
INR Cancelled 04/03/24 09:49
Magnesium 1.9 mg/dl (1.6-2.3) 04/04/24 05:18
04/02/24 04/02/24
16: 17:06
Sag-T-Yyqejpjtrrn Pept Cancelled
LAB Results
04/02/24 04/02/24 04/03/24
16:24 17:06 09:49
Troponin I Cancelled 0.033 Cancelled
Physical Exam
Constitutional: No acute distress
EENT: Moist mucous membranes
Cardiovascular: Rhythm & rate is regular, Pedal edema present, JVD present and Systolic murmur present
Respiratory: Respiratory effort normal and Lungs clear to auscul.
Neuro/Psych: Alert
Data Reviewed
-
Date of Service: April 04, 2024
EKG: Other (Tele: Afib with RVR-->NSR)
Echo: Report Reviewed by me
Labs: Labs Reviewed by me
[2024-04-04] MEDS: ULTRAM 25 MG PO (11:20)
[2024-04-04] MEDS: LASIX 40 MG IV (11:53)
--- NOTE | 2024-04-04 13:49 | PTCARENOTE ---
AAOx3, forgetful. Constantly having urge to void with no success on bedpan. Most recent bladder scan showing 89ml. VSS. Converted to NSR this morning from afib. Patients children at bedside. [place] drain removed by cards. Dressing CDI. Continuing
to closely monitor.
--- NOTE | 2024-04-04 15:45 | CM ---
Patient seen bedside with three daughters, family requesting to meet in hallway. Per daughters, patient resides with her two sons in a multiple story home, no steps to enter, first floor set up. Patient has a rolling walker and wheelchair, denies VN
or SNF history. Daughters reports patient does have a living will, in unsure where it is, requesting POA paperwork. Daughters feel patient has dementia, no formal diagnosis. Patient PCP Arielle Robertson, pharmacy [facility] on [address]
CM discussed PT recommendation of SNF, daughters are agreeable, feel as though they will need to obtain private caregivers after rehab to assist with patient in the home, feel as though their brothers cannot care for patient/provide care patient
needs. CM provided list of local SNFs, private caregivers, and Advance Directive paperwork. Daughters will update CM on which facilities they would like referrals sent to. CM will continue to follow for all discharge planning needs.
Plan; SNF, family to review facilities.
[2024-04-04 17:26] LABS: Glucose - Point of Care 111 mg/dl (70-99)
--- NOTE | 2024-04-04 17:49 | W.PN.HOSP.TC ---
Addendum entered and electronically signed by Richard Collins MD 04/04/24 18:02:
incentive spirometry added
with Heparin on hold, will order SCD's, resume chemical anticoag when cleared by cardio
Original Note:
Today's Communication/Plan
-
await fluid analysis
IV Lasix ordered, check labs
continue in IMU
Assessment / Plan
Assessment / Plan
TTE
Mild/moderately reduced left ventricular systolic function. Left ventricular
ejection fraction is 40-45%.
Global hypokinesis with abnormal (paradoxical) septal motion consistent with
left bundle branch block.
Mild/moderate eccentric mitral regurgitation.
Mild aortic regurgitation.
Large pericardial effusion. There is evidence of RA collapse. Underwent pericardiocentesis on 04/03 with removal of 610 ml of turbid fluid. drain was left in for 24 hrs and has just been removed
CT a/p
Moderate right pleural effusion with adjacent compressive atelectasis.
Small left pleural effusion after thoracentesis. Adjacent atelectasis. No evidence for pneumothorax within the left lower chest.
Moderate to large pericardial effusion as described. Elevation right hemidiaphragm. Fatty infiltration of the liver.
No evidence for bowel obstruction. No evidence of free intraperitoneal air.
2 mm probable nephrolith within the central lower pole the right kidney. Bilateral small renal cysts, including a hyperdense cyst arising from the lower pole the left kidney. No further imaging follow-up for these small cysts is needed.
Bony degenerative changes as described.
Moderate diffuse subcutaneous edema. Small amount of free fluid within the pelvic cul-de-sac.

1. Sepsis -Hypotension/leukocytosis
-Patient brought in mainly for shortness of breath
-WBC 21k, neutrophil dominant, procal 7.26
-Chest x-ray showing bilateral effusion mainly on the left side
-CT abdomen pelvis report as above
-Status post left-sided thoracentesis of 1.1 L fluid, low concern of infection based on differential
-Check UA/Urine cs
-Blood cs if spikes fever
-Follow-up pericardiocentesis fluid study as well
-Maintained on empiric Rocephin/azithromycin for possible pulmonary source
2. Pericardial effusion
-Echocardiogram showing large pericardial effusion with evidence of RA collapse
-s/p drainage
3. Acute systolic heart failure
Left bundle branch block
-proBNP 17,000, no previous history of CAD/VT
-Initial troponin negative in ER, follow-up troponin pending
-Patient started on IV Lasix, vitally stable and may need to be held if patient develops hypotension.
4. Acute hepatitis
-ALT/530/AST 1230. Normal ALP/T bilirubin
-Suspected congestive hepatopathy from cardiac tamponade
-negative hepatitis panel
-Right upper quadrant ultrasound negative, no major structural abnormality on CTAP
-Hold Crestor/Tylenol for now
-GI evaluation appreciated
5. Sacral/coccyx stage I/II pressure inj -POA
-No signs of infection on exam
-Wound care nurse evaluated
6. Type II DM - new dx
-Hemoglobin A1c of 6.2
-Maintain on insulin sliding scale
7. Suspected urinary retention
-Continue bladder scan/straight cath protocol
DVT PPX - heparin
DNR
Total time spent : 58 mins
Met with 2 dgts, mu/stephaniele questions and concerns
time 65 minutes in total
Anticipated Discharge: > 48 hours
Subjective/Interval History
-
Date of Service: April 04, 2024
Awake, alert
Objective Data
-
Labs:
Laboratory Results
04/04/24
05:18
Sodium 134 L
Potassium 4.7 D
Chloride 101
Carbon Dioxide 21 L
BUN 36 H
Creatinine 1.5 H
Glucose 100 H
Calcium 8.1 L
Total Bilirubin 0.6
AST 231 H
ALT 270 H
Alkaline Phosphatase 57
Vital Signs:
Vital Signs
Temp Pulse Resp BP Pulse Ox
97.4 F 69 17 103/56 99
04/04/24 12:06 04/04/24 16:15 04/04/24 16:15 04/04/24 16:00 04/04/24 16:00
I&O
04/03/24 04/04/24 04/05/24
06:59 06:59 06:59
Intake Total 240 / 240
Output Total 950 / 950 400 / 400
Balance -710 / -710 -400 / -400
Review of Systems
-
History Source: Family (dgderrell, Arianna and [place] in room with multiple concerns)
EENT: Reports No Symptoms Reported
Respiratory: Reports No Symptoms
Cardiac: Reports No Symptoms
Abdomen/GI: Reports No Symptoms; Denies Abdominal Pain
Physical Exam
-
General: Well Developed, Well Nourished and No Apparent Distress
HEENT: Normocephalic, Atraumatic and Moist Mucous Membranes
Respiratory: Rales (bibasilar atelectatic rales)
Cardiac: Regular Rhythm and S1/S2
GI: Soft, Nontender and Nondistended
Musculoskeletal: No Clubbing, No Cyanosis and No Edema
--- NOTE | 2024-04-04 21:10 | PTCARENOTE ---
Received pt from day shift. Pt aaox2 (not to time) Forgetful at times. Bed alarm on. Pt NSR on monitor. 97% on 4L, VSS. Pt OOBx1 w/ RW to bathroom. Pt resting in bed with call yancey in reach.
[2024-04-04 21:13] LABS: Glucose - Point of Care 143 mg/dl (70-99)
[2024-04-04 22:14] LABS: Urine Albumin Negative (Neg - Trace); Urine Bilirubin Negative (Negative); Urine Character Clear (Clear); Urine Color Yellow; Urine Glucose Negative (Negative); Urine Ketone Negative (Negative); Urine Leukocyte Trace (Negative); Urine Nitrite Negative (Negative); Urine Occult Blood 1+ (Negative); Urine Specific Gravity 1.015 (<1.030); Urine Urobilinogen Negative (Neg - 1+)
[2024-04-04 22:31] LABS: Urine Bacteria Few (Negative); Urine Squamous Cell >30 /LPF (Few)
[2024-04-04 22:33] LABS: Urine Red Blood Cell 0-2 /HPF (0-2)
[2024-04-04] MEDS: TOPROL XL 50 MG PO (22:35)
[2024-04-04] MEDS: STERILE WATER FOR INJECTION 10 ML IV (22:35)
[2024-04-04] MEDS: ZITHROMAX 500 MG PO (22:35)
[2024-04-04] MEDS: ROCEPHIN 1000 MG IV (22:35)
[2024-04-05] VITALS (11 sets, daily range): BP systolic 114–139; BP diastolic 49–86; BMI 24.2
[2024-04-05 05:46] LABS: Hematocrit 33.8 % (37.0-47.0); Hemoglobin 11.2 g/dL (12.0-16.0); Mean Corp Hgb Conc. 33.1 g/dL (33.0-37.0); Mean Corpuscular Hgb 26.3 pg (27.0-31.0); Mean Corpuscular Volume 79.3 fL (81.0-99.0); Mean Platelet Volume 9.8 fL (7.4-10.4); Platelet Count 306 10^3/uL (130-400); Red Blood Cell Count 4.26 10^6/uL (4.20-5.40); Red Cell Dist. Width 17.9 % (11.5-14.5); White Blood Cell Count 8.9 10^3/uL (4.8-10.8)
[2024-04-05 06:11] LABS: ALT (SGPT) 198 U/L (0-35); AST (SGOT) 132 U/L (14-36); Albumin 2.4 g/dl (3.5-5.0); Alkaline Phosphatase 60 U/L (38-126); Blood Urea Nitrogen 40 mg/dl (7-17); Calcium 8.4 mg/dl (8.4-10.2); Carbon Dioxide 25 mmol/L (22-30); Chloride 99 mmol/L (98-107); Estimated Creatinine Clearance 30 ml/min; Glucose 118 mg/dl (70-99); Potassium 4.4 mmol/L (3.5-5.1); Sodium 132 mmol/L (135-145); Total Bilirubin 0.3 mg/dl (0.2-1.3); Total Protein 4.6 g/dl (6.3-8.2); eGFR 43.81
[2024-04-05 07:56] LABS: Glucose - Point of Care 97 mg/dl (70-99)
[2024-04-05] MEDS: DESENEX/MITRAZOL/ZEASORB 1 APPLIC TOPICAL ×2 (08:46→20:12)
[2024-04-05] MEDS: LASIX 40 MG IV ×2 (08:47→17:37)
[2024-04-05] MEDS: FLOMAX 0.4 MG PO (08:48)
[2024-04-05] MEDS: PROTONIX 40 MG PO (08:48)
[2024-04-05] MEDS: OCUVITE SOFTGEL 1 CAP PO (08:48)
[2024-04-05] MEDS: TOPROL XL 50 MG PO ×2 (08:49→20:13)
--- NOTE | 2024-04-05 09:19 | PTCARENOTE ---
pox 100% on 4L nc at rest. oxygen weaned to 3L. pt ambulated 50 feet to the bathroom with walker. pox dropping to 95% momentarily and returning to 100% on 3L when seated on the toilet. denies dyspnea and no distress. continuing to monitor
--- NOTE | 2024-04-05 11:28 | W.PN.CD ---
Addendum entered and electronically signed by Gunnar Puckett MD 04/05/24 18:25:
correction: pericardial drain was removed 04/04
Original Note:
Today's Communication / Plan
-
echo in AM
continue IV lasix
Impression / Plan
-
Pericardial effusion
-s/p pericardiocentesis for 610cc on 04/03
-ddx: HF, malignancy
-drain out today
-f/u echo tomorrow
Paroxysmal A fib with RVR, new
-cont Toprol XL 50mg bid
-CHADS2-VASC = 6. No OAC yet, with pericardial drain being pulled today, then repeat echo Saturday
Cardiomyopathy (unspecified) EF 40-45%, with acute HFmEF
-start with Toprol XL titration: now at 50mg bid
-increase lasix to 40mg IV bid, with close monitoring of labs, weight, tele
-will assess to resume home losartan vs entresto next based on renal function (JOSE LUIS on admission) and BP trend
-no SGLT2i or MRA yet
JOSE LUIS
-improving with diuresis
HTN
-hold home losartan and amlodipine to allow titration of Torpol in setting of A fib
LBBB
Mild/moderate MR
Mild AR
Physical Exam
Vital Signs/Labs
Vital Signs
Temp Pulse Resp BP Pulse Ox
97.4 F 61 13 120/49 100
04/05/24 07:50 04/05/24 08:00 04/05/24 08:00 04/05/24 08:00 04/05/24 09:21
04/04/24 04/05/24 04/06/24
06:59 06:59 06:59
Actual Weight 68 kg 66.1 kg
04/05/24 05:25
04/05/24 05:25
PT Cancelled 04/03/24 09:49
INR Cancelled 04/03/24 09:49
Magnesium 1.9 mg/dl (1.6-2.3) 04/04/24 05:18
04/02/24 04/02/24
16 17:06
Czt-Z-Txtpofxswxm Pept Cancelled [id number]
LAB Results
04/02/24 04/02/24 04/03/24
16 17:06 09:49
Troponin I Cancelled 0.033 Cancelled
Physical Exam
Constitutional: No acute distress
EENT: Moist mucous membranes
Cardiovascular: Rhythm & rate is regular, Pedal edema present, JVD present and Systolic murmur present
Respiratory: Respiratory effort normal
Neuro/Psych: AO x 3
Data Reviewed
-
Date of Service: April 05, 2024
EKG: Other (SR, PAC's)
Labs: Labs Reviewed by me
[2024-04-05 12:06] LABS: Glucose - Point of Care 125 mg/dl (70-99)
[2024-04-05 16:51] LABS: Glucose - Point of Care 119 mg/dl (70-99)
--- NOTE | 2024-04-05 18:51 | W.PN.HOSP.TC ---
Today's Communication/Plan
-
await Pericardial fluid analysis
Assessment / Plan
Assessment / Plan
TTE
Mild/moderately reduced left ventricular systolic function. Left ventricular
ejection fraction is 40-45%.
Global hypokinesis with abnormal (paradoxical) septal motion consistent with
left bundle branch block.
Mild/moderate eccentric mitral regurgitation.
Mild aortic regurgitation.
Large pericardial effusion. There is evidence of RA collapse. Underwent pericardiocentesis on 04/03 with removal of 610 ml of turbid fluid. drain was left in for 24 hrs and has just been removed
CT a/p
Moderate right pleural effusion with adjacent compressive atelectasis.
Small left pleural effusion after thoracentesis. Adjacent atelectasis. No evidence for pneumothorax within the left lower chest.
Moderate to large pericardial effusion as described. Elevation right hemidiaphragm. Fatty infiltration of the liver.
No evidence for bowel obstruction. No evidence of free intraperitoneal air.
2 mm probable nephrolith within the central lower pole the right kidney. Bilateral small renal cysts, including a hyperdense cyst arising from the lower pole the left kidney. No further imaging follow-up for these small cysts is needed.
Bony degenerative changes as described.
Moderate diffuse subcutaneous edema. Small amount of free fluid within the pelvic cul-de-sac.

1. Sepsis -Hypotension/leukocytosis
-Patient brought in mainly for shortness of breath
-WBC 21k, neutrophil dominant, procal 7.26
-Chest x-ray showing bilateral effusion mainly on the left side
-CT abdomen pelvis report as above
-Status post left-sided thoracentesis of 1.1 L fluid, low concern of infection based on differential
- UA 6-10 WBC, few bact
-Blood cs if spikes fever
-Follow-up pericardiocentesis fluid study as well
-Maintained on empiric Rocephin/azithromycin for possible pulmonary source
Pericardial drain removed 04/04
2. Pericardial effusion
-Echocardiogram showing large pericardial effusion with evidence of RA collapse
-s/p drainage, echo ordered for 04/06. Await fluid analysis
3. Acute systolic heart failure
Left bundle branch block
-proBNP 17,000, no previous history of CAD/MS
-Initial troponin negative in ER,
-Patient started on IV Lasix, vitally stable and may need to be held if patient develops hypotension.
4. Acute hepatitis
-AST 1022-->1226-->231-->132/ALT 464-->528-->270-->198
-Suspected congestive hepatopathy from cardiac tamponade
-negative hepatitis panel
-Right upper quadrant ultrasound negative, no major structural abnormality on CTAP
-Hold Crestor/Tylenol for now
-GI evaluation appreciated
5. Sacral/coccyx stage I/II pressure inj -POA
-No signs of infection on exam
-Wound care nurse evaluated
6. Type II DM - new dx
-Hemoglobin A1c of 6.2
-Maintain on insulin sliding scale
7. Suspected urinary retention
-Continue bladder scan/straight cath protocol
DVT PPX - heparin
DNR
Total time spent : 50 mins
Anticipated Discharge: > 48 hours
Subjective/Interval History
-
Date of Service: April 05, 2024
More alert, denies chest pain or sob
Objective Data
-
Vital Signs:
Vital Signs
Temp Pulse Resp BP Pulse Ox
97.3 F 65 14 115/54 95
04/05/24 16:00 04/05/24 18:00 04/05/24 18:00 04/05/24 18:00 04/05/24 18:00
I&O
04/04/24 04/05/24 04/06/24
06:59 06:59 06:59
Intake Total 240 / 240 720 / 720 1200 / 1200
Output Total 950 / 950 600 / 600
Balance -710 / -710 120 / 120 1200 / 1200
Review of Systems
-
History Source: Family (dgt, Arianna in room with multiple concerns)
EENT: Reports No Symptoms Reported
Respiratory: Reports No Symptoms
Cardiac: Reports No Symptoms
Abdomen/GI: Reports No Symptoms; Denies Abdominal Pain
Physical Exam
-
General: Well Developed, Well Nourished and No Apparent Distress
HEENT: Normocephalic, Atraumatic and Moist Mucous Membranes
Respiratory: Negative Rales (bibasilar atelectatic rales resolved)
Cardiac: Regular Rhythm and S1/S2
GI: Soft, Nontender and Nondistended
Musculoskeletal: No Clubbing, No Cyanosis and No Edema
[2024-04-05] MEDS: ROCEPHIN 1000 MG IV (20:12)
[2024-04-05] MEDS: STERILE WATER FOR INJECTION 10 ML IV (20:13)
[2024-04-05] MEDS: ZITHROMAX 500 MG PO (20:13)
[2024-04-05 21:44] LABS: Glucose - Point of Care 118 mg/dl (70-99)
--- NOTE | 2024-04-05 23:15 | PTCARENOTE ---
Caring for patient overnight. aaox3 but very flat and withdrawn. Pt does not always answer or look at you when youre talking/educating her. Unsure if she is understanding everything. NSR BBB on monitor. Remains off O2, slight DE LUNA when OOB. Using
BSC. Urinary frequency d/t lasix, tried implementing the purewick so pt can get some rest overnight but pt unable to use it. VSS.
Boarded foams applied to b/l elbows. R heel foam replaced. Replaced sacral foam. PT has red lines/mehta on her buttocks, unsure if its from using the toilet so frequently?? Will keep monitoring and continuing with Q2T. Bed alarm on. Call yancey in
reach.
[2024-04-06] VITALS (14 sets, daily range): BP systolic 106–161; BP diastolic 48–85; PULSE 67; O2SAT 92; BMI 24.3; BMI 24.1
[2024-04-06 05:19] LABS: Hematocrit 37.2 % (37.0-47.0); Hemoglobin 12.1 g/dL (12.0-16.0); Mean Corp Hgb Conc. 32.5 g/dL (33.0-37.0); Mean Platelet Volume 9.7 fL (7.4-10.4); Platelet Count 317 10^3/uL (130-400); Red Blood Cell Count 4.65 10^6/uL (4.20-5.40); Red Cell Dist. Width 17.9 % (11.5-14.5); White Blood Cell Count 7.9 10^3/uL (4.8-10.8)
[2024-04-06 05:42] LABS: ALT (SGPT) 169 U/L (0-35); AST (SGOT) 116 U/L (14-36); Albumin 2.8 g/dl (3.5-5.0); Alkaline Phosphatase 75 U/L (38-126); Blood Urea Nitrogen 38 mg/dl (7-17); Calcium 8.7 mg/dl (8.4-10.2); Carbon Dioxide 28 mmol/L (22-30); Chloride 97 mmol/L (98-107); Estimated Creatinine Clearance 36 ml/min; Glucose 116 mg/dl (70-99); Potassium 3.9 mmol/L (3.5-5.1); Sodium 135 mmol/L (135-145); Total Bilirubin 0.3 mg/dl (0.2-1.3); Total Protein 5.1 g/dl (6.3-8.2); eGFR 54.53
--- NOTE | 2024-04-06 08:00 | PTCARENOTE ---
Patient received from night coordinator. Patient resting comfortably in bed. AAO, VSS. No events noted over night. No complaints of pain at this time. Will get OOB to chair. Continuing with Milton, bedside commode. ECHO scheduled for today. Call
yancey in reach.
[2024-04-06] MEDS: PROTONIX 40 MG PO (08:07)
[2024-04-06] MEDS: FLOMAX 0.4 MG PO (08:07)
[2024-04-06] MEDS: TOPROL XL 50 MG PO ×2 (08:07→19:48)
[2024-04-06] MEDS: DESENEX/MITRAZOL/ZEASORB 1 APPLIC TOPICAL ×2 (08:07→19:52)
[2024-04-06] MEDS: OCUVITE SOFTGEL 1 CAP PO (08:07)
[2024-04-06] MEDS: LASIX 40 MG IV (08:07)
--- NOTE | 2024-04-06 08:17 | W.PN.CD ---
Today's Communication / Plan
-
change lasix to 40po qaM
resume losartan at 50mg daily (half her usual home dose)
Impression / Plan
-
Pericardial effusion
-s/p pericardiocentesis for 610cc on 04/03
-ddx: HF, malignancy
-drain out today
-f/u echo today
- No sign of infection by gram stain, cx to date. Fungal cultures take weeks.
-Cytology pending
Paroxysmal A fib with RVR, new
-cont Toprol XL 50mg bid
-CHADS2-VASC = 6. No OAC yet, with pericardial drain being pulled 04-04
Cardiomyopathy (unspecified) EF 40-45%, with acute HFmEF
-start with Toprol XL titration: now at 50mg bid
-change lasix to 40mg po qAM
-losartan to be resumed today at half home dose. Will give 50mg daily for now
-no SGLT2i or MRA yet
JOSE LUIS
-resolved
HTN
-hold home losartan and amlodipine to allow titration of Torpol in setting of A fib
LBBB
Mild/moderate MR
Mild AR
Dispo: [facility] with two sons. She lives on first floor. Would involve PT if they have not already assessed her
Physical Exam
Vital Signs/Labs
Vital Signs
Temp Pulse Resp BP Pulse Ox
97.7 F 68 12 149/70 95
04/06/24 04:53 04/06/24 08:07 04/06/24 06:00 04/06/24 08:07 04/06/24 06:00
04/05/24 04/06/24 04/07/24
06:59 06:59 06:59
Actual Weight 145 lb 11.609 oz 144 lb 9.972 oz
04/06/24 04:49
04/06/24 04:49
PT Cancelled 04/03/24 09:49
INR Cancelled 04/03/24 09:49
Magnesium 1.9 mg/dl (1.6-2.3) 04/04/24 05:18
04/02/24 04/02/24
16:24 17:06
Fmn-K-Mqczcfulkbr Pept Cancelled [id number]
LAB Results
04/03/24
09:49
Troponin I Cancelled
Physical Exam
Constitutional: No acute distress and Comfortable
Cardiovascular: Rhythm & rate is regular
Respiratory: Respiratory effort normal
Neuro/Psych: Motor deficits absent
Other: Other (no edema)
Data Reviewed
-
Date of Service: April 06, 2024
[2024-04-06 08:19] LABS: Erythrocyte Sed Rate 29 mm/hour (0-20)
[2024-04-06 09:02] LABS: Glucose - Point of Care 89 mg/dl (70-99)
[2024-04-06] MEDS: COZAAR 50 MG PO (10:08)
[2024-04-06 11:49] LABS: Glucose - Point of Care 123 mg/dl (70-99)
--- NOTE | 2024-04-06 13:00 | PTOTSP ---
TYPE INSPECTOR Evaluations
Patient presents with moderate-severe dysphonia and periods of aphonia/whispering of unknown etiology. Suspect reduced breath support and history of GERD impacting.
Patient also with signs concerning for possible mild unspecified dysphagia with known history of reflux and intermittent delayed coughing during this assessment. Cannot rule out cough from aspiration vs unrelated cough bedside.
Recommend:
1. Regular, Thin liquids
2. Medications - as best tolerated
3. Strategies: upright to 90 degrees, small single sips/bites, slow rate, remain upright for at least 30 minutes after eating/drinking as a reflux precaution
4. Consider video swallow study to objectively assess swallowing and rule out aspiration
5. Outpatient consult to TYPE INSPECTOR for voice evaluation
[2024-04-06 17:33] LABS: Glucose - Point of Care 113 mg/dl (70-99)
--- NOTE | 2024-04-06 18:01 | W.PN.HOSP.TC ---
Today's Communication/Plan
-
CT scan of chest
Assessment / Plan
Assessment / Plan
TTE
Mild/moderately reduced left ventricular systolic function. Left ventricular
ejection fraction is 40-45%.
Global hypokinesis with abnormal (paradoxical) septal motion consistent with
left bundle branch block.
Mild/moderate eccentric mitral regurgitation.
Mild aortic regurgitation.
Large pericardial effusion. There is evidence of RA collapse. Underwent pericardiocentesis on 04/03 with removal of 610 ml of turbid fluid. drain was left in for 24 hrs and has just been removed
CT a/p
Moderate right pleural effusion with adjacent compressive atelectasis.
Small left pleural effusion after thoracentesis. Adjacent atelectasis. No evidence for pneumothorax within the left lower chest.
Moderate to large pericardial effusion as described. Elevation right hemidiaphragm. Fatty infiltration of the liver.
No evidence for bowel obstruction. No evidence of free intraperitoneal air.
2 mm probable nephrolith within the central lower pole the right kidney. Bilateral small renal cysts, including a hyperdense cyst arising from the lower pole the left kidney. No further imaging follow-up for these small cysts is needed.
Bony degenerative changes as described.
Moderate diffuse subcutaneous edema. Small amount of free fluid within the pelvic cul-de-sac.

1. Sepsis -Hypotension/leukocytosis
-Patient brought in mainly for shortness of breath
-WBC 21-->11.2-->10.3-->8.9-->7.9k, neutrophil dominant, procal 7.26
-Chest x-ray showing bilateral effusion mainly on the left side
-CT abdomen pelvis report as above
-Status post left-sided thoracentesis of 1.1 L fluid, low concern of infection based on differential
- UA 6-10 WBC, few bact
-Blood cs if spikes fever
- pericardiocentesis fluid NGTD
-Maintained on empiric Rocephin/azithromycin for possible pulmonary source
Pericardial drain removed 04/04
Reviewed studies with Dr. Horner, will order CT scan of chest, post thoracentesis/pericardiocentesis for tomorrow
2. Pericardial effusion
-Echocardiogram showing large pericardial effusion with evidence of RA collapse
-s/p drainage, echo ordered for 04/06. Await fluid analysis
repeat echo 04/06: Compared to 04/03/24 (post pericardiocentesis): there remains no pericardial
effusion. LVEF looks 30-35% currently, compared to 40-45% on prior.
3. Acute systolic heart failure
Left bundle branch block
-proBNP 17,000, no previous history of CAD/TN
-Initial troponin negative in ER,
-Patient started on IV Lasix, now changed to 40 mg po daily
Losartan resumed at 50 mg daily (1/2 at home dose)
4. Acute hepatitis
-AST 1022-->1226-->231-->132-->116/ALT 464-->528-->270-->198-->169
-Suspected congestive hepatopathy from cardiac tamponade
-negative hepatitis panel
-Right upper quadrant ultrasound negative, no major structural abnormality on CTAP
-Hold Crestor/Tylenol for now
-GI evaluation appreciated
5. Sacral/coccyx stage I/II pressure inj -POA
-No signs of infection on exam
-Wound care nurse evaluated
6. Type II DM - new dx
-Hemoglobin A1c of 6.2
-Maintain on insulin sliding scale
7. Suspected urinary retention
-Continue bladder scan/straight cath protocol
DVT PPX - heparin
DNR
Total time spent : 50 mins
Anticipated Discharge: > 48 hours
Subjective/Interval History
-
Date of Service: April 06, 2024
Appears more comfortable
Objective Data
-
Vital Signs:
Vital Signs
Temp Pulse Resp BP Pulse Ox
97.4 F 66 19 125/54 99
04/06/24 15:27 04/06/24 16:02 04/06/24 16:02 04/06/24 16:02 04/06/24 12:31
I&O
04/05/24 04/06/24 04/07/24
06:59 06:59 06:59
Intake Total 720 / 720 1200 / 1200
Output Total 600 / 600 700 / 700 750 / 750
Balance 120 / 120 500 / 500 -750 / -750
Review of Systems
-
History Source: Family (dgts, Arianna and Ladi in room with multiple concerns)
EENT: Reports No Symptoms Reported
Respiratory: Reports No Symptoms
Cardiac: Reports No Symptoms
Abdomen/GI: Reports No Symptoms; Denies Abdominal Pain
Physical Exam
-
General: Well Developed, Well Nourished and No Apparent Distress
HEENT: Normocephalic, Atraumatic and Moist Mucous Membranes
Respiratory: Negative Rales (bibasilar atelectatic rales resolved)
Cardiac: Regular Rhythm and S1/S2
GI: Soft, Nontender and Nondistended
Musculoskeletal: No Clubbing, No Cyanosis and No Edema
[2024-04-06] MEDS: ROCEPHIN 1000 MG IV (19:48)
[2024-04-06] MEDS: ZITHROMAX 500 MG PO (19:48)
[2024-04-06] MEDS: STERILE WATER FOR INJECTION 10 ML IV (19:49)
--- NOTE | 2024-04-06 23:58 | PTCARENOTE ---
Caring for patient overnight. aaox3 but very flat and withdrawn. NSR BBB on monitor. On RA in beginning of shift, tolerating great. Placed on 2LNC at night. c/o sacral pain, pt turned q2hr, foam CDI on bottom. Denies any other pain or SOB. Pt oob to
BSC multiple times, pt has urine frequency & urgency. At one point pt only urinated <50cc, bladder scammed PVR was 0cc. PT stated she does the same thing at home and uses the bathroom frequently. Tried urging the purewick for pt lack of sleep but
unable to use. Will continue to monitor. SCDs. Bed alarm on and call yancey in hand.
[2024-04-07] VITALS (13 sets, daily range): BP systolic 107–139; BP diastolic 40–105; BMI 22.5
[2024-04-07 08:30] LABS: Glucose - Point of Care 98 mg/dl (70-99)
--- NOTE | 2024-04-07 09:09 | W.PN.CD ---
Today's Communication / Plan
-
continue current therapy.
Recent echo without recurrence
Check follow up echo in 2 weeks
Continue to follow cultures and pathology on pericardial fluid which are pendng
Impression / Plan
-
Pericardial effusion
-s/p pericardiocentesis for 610cc on 04/03
- f/u echo 04/06/24 without recurrence
- No sign of infection by gram stain, cx to date. Fungal cultures take weeks.
-Cytology pending
- follow up echo in 2 weeks ( around 04/20/24)
Paroxysmal A fib with RVR, new
-cont Toprol XL 50mg bid
-CHADS2-VASC = 6. No OAC yet, with pericardial drain being pulled 04-04
Cardiomyopathy (unspecified) EF 40-45%, with acute HFmEF
-start with Toprol XL titration: now at 50mg bid
-changed lasix to 40mg po qAM this admit
-losartan resumed at half home dose.
-no SGLT2i or MRA yet
JOSE LUIS
-resolved
HTN
-hold home losartan and amlodipine to allow titration of Torpol in setting of A fib
LBBB
Mild/moderate MR
Mild AR
Physical Exam
Vital Signs/Labs
Vital Signs
Temp Pulse Resp BP Pulse Ox
97.4 F 65 16 130/105 98
04/07/24 02:32 04/07/24 06:00 04/07/24 06:00 04/07/24 06:00 04/07/24 06:00
04/06/24 04/07/24 04/08/24
06:59 06:59 06:59
Actual Weight 65.6 kg 61.4 kg
04/06/24 04:49
04/06/24 04:49
PT Cancelled 04/03/24 09:49
INR Cancelled 04/03/24 09:49
Magnesium 1.9 mg/dl (1.6-2.3) 04/04/24 05:18
04/02/24 04/02/24
16:24 17:06
Xhh-T-Kiyseakztgh Pept Cancelled [id number]
Physical Exam
Constitutional: No acute distress
EENT: Anicteric
Cardiovascular: Rhythm & rate is regular
Respiratory: Respiratory effort normal
GI: Soft
Neuro/Psych: Alert
Data Reviewed
-
Date of Service: April 07, 2024
[2024-04-07] MEDS: FLOMAX 0.4 MG PO (09:25)
[2024-04-07] MEDS: TOPROL XL 50 MG PO ×2 (09:26→19:35)
[2024-04-07] MEDS: COZAAR 50 MG PO (09:26)
[2024-04-07] MEDS: LASIX 40 MG PO (09:26)
[2024-04-07] MEDS: DESENEX/MITRAZOL/ZEASORB 1 APPLIC TOPICAL ×2 (09:27→19:35)
[2024-04-07] MEDS: PROTONIX 40 MG PO (09:27)
[2024-04-07] MEDS: OCUVITE SOFTGEL 1 CAP PO (09:27)
--- NOTE | 2024-04-07 11:12 | PN.CDI ---
CDI
- -
CDI:
Physician Documentation Request
Admit Date: 04/02/24 19:58
Dear Doctor Karina,
Patient's sodium results:
Laboratory Tests
04/02/24 04/03/24 04/05/24
17:06 23:57 05:25
Sodium 137 134 L 132 L
Could you please provide a diagnosis that supports the above lab abnormalities and additional evaluation/monitoring:
Hyponatremia
Abnormal lab value clinically insignificant
Other
Use of terms such as suspected, likely, concern for, or probable (associated with a specific diagnosis that is being evaluated, monitored, or treated as if it exists) are acceptable and can be coded in the inpatient setting, when documented at the
time of discharge.
Thank you,
Yary Venegas RN, BSN
CDI Specialist
tiger text
Please use your independent medical judgment in providing your response.
--- NOTE | 2024-04-07 12:20 | CM ---
Addendum entered by Chantell Anne RN 04/07/24 16:26:
SNF referrals reviewed; accepted by [facility]. Response pending from [facility].
Spoke with daughter Arianna again; provided update on SNF referrals. She will discuss with her sister and they will decide.
Plan follow up with daughter re; SNF preference.
Addendum entered by Chantell Anne RN 04/07/24 12:40:
Also noted, seen by wound care nurse.
Original Note:
Chest CT today. Receiving IV Abx. PT 04/06; requires assist of 2, recommend skilled rehab. OT recommends HH.
Met with patient and daughter Arianna; daughter had spoken with prior CM and thought she had to make her own SNF referrals, so her sister was calling around to SNFs. Explained CM process for d/c to SNF. Provided SNF list. Arianna says she would
like SNFs in [place] or [place]- she chose [facility]. Provided [facility] ratings. CM explained again will make referrals and let daughter know who can accept. Daughter wanted to discuss remote computer terminal operator care needs after d/c from SNF to
home- she may want to hire a caregiver - provided Caregiver list.
SNF referrals placed.
Plan follow up SNF referrals.
[2024-04-07 12:34] LABS: Glucose - Point of Care 144 mg/dl (70-99)
--- NOTE | 2024-04-07 14:46 | CON.PUL ---
Consultation
Consultation Request
Date/Time Consultation Requested: 04/07/2024
Date/Time Consultation Performed: 04/07/2024
Requesting Provider: Dr. Collins
Performing Provider: Dr. Maged Saenz
Reason for Consultation: Pleural effusion
Medical History
-
History of Present Illness:
88-year-old woman with history of diabetes, hypertension, hyperlipidemia, GERD who presented to the emergency department complaining of shortness of breath for few days on 04/02/2024. Patient denied any symptoms suggestive of infection, no prior
history of heart failure. Chest x-ray demonstrated large left pleural effusion. proBNP was elevated at 17,000. Patient then had a leukocytosis with left shift.
Her AST and ALT were also elevated.
Underwent thoracentesis 04/03/2024. Of about 1.1 L.
Patient started on diuresis as well.
Echocardiogram 04/03/2024: Demonstrated mild/moderate reduced left ventricular systolic function. Ejection fraction 40 to 45%. Global hypokinesis with changes consistent with left bundle branch block.
Mild to moderate MR. Large pericardial effusion.
Patient was started on antibiotics for possible pulmonary infection. Given presence of leukocytosis and exudative character of pleural effusion.
Cardiology consult
Social History
Tobacco: Non-smoker
Alcohol: None
Drug: None
Personal:
Living: With Family
Employment: Retired
Family History
Family History: Reviewed & Not Pertinent
Allergies / Home Medications
Allergies
Allergy/AdvReac Type Severity Reaction Status Date / Time
No Known Allergies Allergy Unverified 04/02/24 15:09
Home Medications
�Medication �Instructions �Recorded �Confirmed �Last Taken �Type
amlodipine 5 mg tablet 5 mg PO DAILY Blood Pressure 04/02/24 04/02/24 04/01/24 History
famotidine 20 mg tablet 20 mg PO QPM Gastrointestinal Issue 04/02/24 04/02/24 04/01/24 History
fenofibric acid (choline) 135 mg 135 mg PO DAILY High Cholesterol 04/02/24 04/02/24 04/01/24 History
capsule,delayed release
losartan 100 mg tablet 100 mg PO QPM Blood Pressure 04/02/24 04/02/24 04/01/24 History
metoprolol succinate 25 mg 25 mg PO DAILY Blood Pressure 04/02/24 04/02/24 04/01/24 History
tablet,extended release 24 hr
omega 8-qhz-wkd-fish oil 1,000 mg 1 cap PO BID Supplement 04/02/24 04/02/24 04/01/24 History
(120 mg-180 mg) capsule (Fish Oil)
omeprazole 40 mg capsule,delayed 40 mg PO DAILY Gastrointestinal 04/02/24 04/02/24 04/01/24 History
release Issue
rosuvastatin 5 mg tablet 5 mg PO DAILY High Cholesterol 04/02/24 04/02/24 04/01/24 History
vitamins A,C,Q-qyro-aqcdjo 4,296 1 cap PO DAILY Supplement 04/02/24 04/02/24 04/01/24 History
mcg-226 mg-90 mg capsule
(PreserVision AREDS)
Review of Systems
-
History Source: Patient
All other systems: Negative unless noted
Vitals / Labs / Diagnostic Testing
Vital Signs
Temp Pulse Resp BP Pulse Ox
97.8 F 63 20 113/51 98
04/07/24 12:00 04/07/24 08:00 04/07/24 08:00 04/07/24 08:00 04/07/24 08:00
Lab Data
04/06/24 04:49
04/06/24 04:49
Microbiology
04/03/24 16:41 Pericardial Fluid Fungal Smear - Final
No yeast or fungal elements seen.
04/03/24 16:41 Pericardial Fluid Fungal Culture - Preliminary
Culture in progress.
Positive cultures are reported as soon as detected.
Final report to follow in four to five weeks.
04/03/24 16:41 Pericardial Fluid Body Fluid Culture - Final
No Growth After 72 Hours
04/03/24 16:41 Pericardial Fluid Gram Stain - Final
04/03/24 09:20 Pleural Fluid Body Fluid Culture - Final
No Growth After 72 Hours
04/03/24 09:20 Pleural Fluid Gram Stain - Final
04/03/24 16:33 Pericardial Fluid Acid Fast Bacilli Smear - Preliminary
04/03/24 16:33 Pericardial Fluid Acid Fast Bacilli Culture - Preliminary
04/03/24 12:25 Nose MRSA Screen - Final
No Methicillin Resistant Staphylococcus aureus isolated.
Diagnostic Testing:
Physical Exam
-
HEENT: Normocephalic
Cardiovascular: S1/S2 and Peripheral Edema (1+ bilateral,)
Respiratory: Clear and Other (Decreased breath sounds in both bases)
GI: Soft and Non Distended
Neurology: Awake, Alert and No Motor Deficits
Skin: Warm
General: Comfortable
Assessment
-
88-year-old woman admitted with shortness of breath, found to have large left pleural effusion as well as large pericardial effusion. Underwent thoracentesis and pericardiocentesis with improvement. Bilateral effusions appears to be a reoccurring
04/07/2024, we were consulted for evaluation.
Pleural effusion/pericardial effusion: Unclear etiology, could be from volume overload, cannot rule out connective tissue disease associated with serositis/? Viral
Additional differential diagnosis includes: Connective tissue disease associated, postviral serositis, heart failure related, less likely malignant.
Status post left thoracentesis: 1.1 L
Status post pericardiocentesis removal of 610 mL of yellow/brown turbid fluid 04/03/2024
Pericardial drain removed 04/04/2024
Abnormal LFTs: Likely due to hepatic congestion on top of fatty liver. Improved
Cardiomyopathy-new onset ejection fraction 40 to 45%
Initial leukocytosis-resolved
-
Conditions present prior admission:
Hepatic steatosis
Type 2 diabetes
Hypertension
Hyperlipidemia
Assessment and plan:
Etiology for pericardial/bilateral pleural effusions left greater than right not entirely clear. Pleural fluid appears to be exudative.
Procalcitonin elevated at 7.26
CRP 52.2 04/06/2024
Renal function normalized
TSH is normal
Liver function improved
Urinalysis without significant proteinuria
Hepatitis panel negative
SARS-cov2- negative
No evidence for cirrhosis on imaging. Does have fatty liver.
-
Pleural effusion: s/p thoracentesis 04/03/2024: pH 7.39/white blood cells 678/51% PMNs/48% mononuclear/total protein 2.2/LDH 160. Exudative.
No cytology was sent.
Culture negative
Status post pericardial drain: 04/04/2024, total protein 3.8/LDH 1758 cultures so far negative. Cytology negative for malignant cells-cytology reports marked acute inflammation present consistent with infection.
-
CT chest 04/07/2024: Reviewed, showed bilateral small to moderate left pleural effusion, small right pleural effusion, airspace consolidation/atelectasis within the lingula and left lower lobe. Small right pleural effusion. Significant improvement
of pericardial effusion now measuring 3 to 4 mm in thickness.
-
With increased leukocytosis on admission, increased procalcitonin, infiltrates on CAT scan infectious etiology a possibility-bacterial/viral.
Patient appears nontoxic-all cultures so far negative
Complete 7 days of antibiotics for bacterial infection
Continue to follow final cultures, so far negative.
-
Bilateral pleural effusions appears to be recurrent on CAT scan from 04/07/2024. This could be explained for component of hypoalbuminemia albumin is 2.8.
Continues to have lower extremity edema-improved but persist.
No JVD on exam
Currently denies shortness of breath at rest, not on oxygen supplementation
Okay to continue with oral diuresis and supportive care
If patient symptomatic may need to repeat thoracentesis during this hospital stay, at that time I will send for cytology. Will continue to reevaluate on a daily basis.
-
CRP is elevated, no significant proteinuria on urinalysis, no evidence for synovitis. Clinically no evidence for connective tissue disease but this is also possible.
Will obtain RUBÉN, anti-CCP, ANCA antibodies, sed rate.
For now continue supportive care
-
Post viral serositis, also possible.
Transaminitis improving
Leukocytosis resolved
Continue supportive care for now.
Afebrile, appears nontoxic.
-
New onset heart failure with reduced ejection fraction: Diuresis per cardiology. Now on oral Lasix.
Atrial fibrillation-on anticoagulation, rate is controlled
Unclear etiology
Repeat echocardiogram 04/06/2024: Showed moderately reduced left ventricular systolic function. Ejection fraction 30 to 35%. No recurrent pericardial effusion.
Cardiology recommending repeating echocardiogram in about 2 weeks.
-
Will continue to follow
-
Will follow
[2024-04-07 16:41] LABS: Glucose - Point of Care 80 mg/dl (70-99)
--- NOTE | 2024-04-07 17:44 | W.PN.HOSP.TC ---
Today's Communication/Plan
-
input of Pulm appreiciated
Assessment / Plan
Assessment / Plan
TTE
Mild/moderately reduced left ventricular systolic function. Left ventricular
ejection fraction is 40-45%.
Global hypokinesis with abnormal (paradoxical) septal motion consistent with
left bundle branch block.
Mild/moderate eccentric mitral regurgitation.
Mild aortic regurgitation.
Large pericardial effusion. There is evidence of RA collapse. Underwent pericardiocentesis on 04/03 with removal of 610 ml of turbid fluid. drain was left in for 24 hrs and has just been removed
CT a/p
Moderate right pleural effusion with adjacent compressive atelectasis.
Small left pleural effusion after thoracentesis. Adjacent atelectasis. No evidence for pneumothorax within the left lower chest.
Moderate to large pericardial effusion as described. Elevation right hemidiaphragm. Fatty infiltration of the liver.
No evidence for bowel obstruction. No evidence of free intraperitoneal air.
2 mm probable nephrolith within the central lower pole the right kidney. Bilateral small renal cysts, including a hyperdense cyst arising from the lower pole the left kidney. No further imaging follow-up for these small cysts is needed.
Bony degenerative changes as described.
Moderate diffuse subcutaneous edema. Small amount of free fluid within the pelvic cul-de-sac.
04/[address] of chest: 1. Interval recurrence of small to moderate LEFT pleural effusion with adjacent airspace consolidation/atelectasis within the lingula and left lower lobe.
2. Small right pleural effusion.
3. Significant interval improvement of pericardial effusion now measuring 3 to 4 mm in thickness, previously 13 mm at a similar location.
4. Additional findings above.

1. Sepsis -Hypotension/leukocytosis
-Patient brought in mainly for shortness of breath
-WBC 21-->11.2-->10.3-->8.9-->7.9k, neutrophil dominant, procal 7.26
-Chest x-ray showing bilateral effusion mainly on the left side
-CT abdomen pelvis report as above
-Status post left-sided thoracentesis of 1.1 L fluid, low concern of infection based on differential
- UA 6-10 WBC, few bact
-Blood cs if spikes fever
- pericardiocentesis fluid NGTD
-Maintained on empiric Rocephin/azithromycin for possible pulmonary source, discussed with Dr. Saenz, he is okay with stopping abx as of tomorrow
Pericardial drain removed 04/04
Consult placed to Dr. Saenz, agrees that current episode could have been viral induced (possibly even Covid)
Pericardial fluid negative for malignant cells (did not do cytology on thoracentesis fluid)
2. Pericardial effusion
-Echocardiogram showing large pericardial effusion with evidence of RA collapse
-s/p drainage, echo ordered for 04/06. Await fluid analysis
repeat echo 04/06: Compared to 04/03/24 (post pericardiocentesis): there remains no pericardial
effusion. LVEF looks 30-35% currently, compared to 40-45% on prior.
3. Acute systolic heart failure
Left bundle branch block
-proBNP 17,000, no previous history of CAD/MT
-Initial troponin negative in ER,
-Patient started on IV Lasix, now changed to 40 mg po daily
Losartan resumed at 50 mg daily (1/2 at home dose)
4. Acute hepatitis
-AST 1022-->1226-->231-->132-->116/ALT 464-->528-->270-->198-->169
-Suspected congestive hepatopathy from cardiac tamponade
-negative hepatitis panel
-Right upper quadrant ultrasound negative, no major structural abnormality on CTAP
-Hold Crestor/Tylenol for now
-GI evaluation appreciated
5. Sacral/coccyx stage I/II pressure inj -POA
-No signs of infection on exam
-Wound care nurse evaluated
6. Type II DM - new dx
-Hemoglobin A1c of 6.2
-Glu has improved, will stop insulin sliding scale
7. Suspected urinary retention
-Continue bladder scan/straight cath protocol
8. Hyponatremia
resolved
DVT PPX - heparin
DNR
Anticipated Discharge: > 48 hours
Subjective/Interval History
-
Date of Service: April 07, 2024
Somewhat more lethargic today
Objective Data
-
Vital Signs:
Vital Signs
Temp Pulse Resp BP Pulse Ox
97.3 F 64 20 120/47 95
04/07/24 15:16 04/07/24 14:00 04/07/24 14:00 04/07/24 14:00 04/07/24 08:00
I&O
04/06/24 04/07/24 04/08/24
06:59 06:59 06:59
Intake Total 1200 / 1200 480 / 480
Output Total 700 / 700 2100 / 2100 600 / 600
Balance 500 / 500 -2100 / -2100 -120 / -120
Review of Systems
-
History Source: Family (dgt, Arianna in room with multiple concerns)
EENT: Reports No Symptoms Reported
Respiratory: Reports No Symptoms
Cardiac: Reports No Symptoms
Abdomen/GI: Reports No Symptoms; Denies Abdominal Pain
Physical Exam
-
General: Well Developed, Well Nourished and No Apparent Distress
HEENT: Normocephalic, Atraumatic and Moist Mucous Membranes
Respiratory: Decreased Breath Sounds (left base); Negative Rales (bibasilar atelectatic rales resolved)
Cardiac: Regular Rhythm and S1/S2
GI: Soft, Nontender and Nondistended
Musculoskeletal: No Clubbing, No Cyanosis and No Edema
--- NOTE | 2024-04-07 19:20 | PTCARENOTE ---
AAO, forgetful, soft spoken but appropriate. Asst 1 oob - will set alarms off in chair and bed - could do herself however unable with wires. RA all day- LLL crackles. SR on tele, +2 LE edema. Continent of B/B. Continues with urinary freq and
urgency- takes Flomax, Kegal exercises reviewed with her and she is able to do them. CT chest completed today.
[2024-04-07] MEDS: ZITHROMAX 500 MG PO (19:35)
[2024-04-07] MEDS: STERILE WATER FOR INJECTION 10 ML IV (19:35)
[2024-04-07] MEDS: ROCEPHIN 1000 MG IV (19:35)
[2024-04-08] VITALS (13 sets, daily range): BP systolic 101–160; BP diastolic 41–93; PULSE 67; O2SAT 96; BMI 22.2
--- NOTE | 2024-04-08 05:05 | PTCARENOTE ---
Patient impulsive and forgetful overnight. Has urinary frequency/urgency requiring the BSC over 10 times. NO urinary retention/ complains of dysuria.
[2024-04-08 05:07] LABS: % Basophils 0.2 % (0-2); % Eosinophils 2.1 % (0-6); % Immature Granulocytes 0.2 % (0-0.5); % Lymphocytes 23.1 % (20.5-51.1); % Monocytes 4.3 % (1.7-9.3); % Neutrophils 70.1 % (42.2-75.2); Absolute Eosinophils 0.2 10^3/uL (0-0.7); Absolute Lymphocytes 2.1 10^3/uL (1.2-3.4); Absolute Monocytes 0.4 10^3/uL (0.1-0.6); Absolute Neutrophils 6.3 10^3/uL (1.4-6.5); Hematocrit 40.7 % (37.0-47.0); Hemoglobin 13.4 g/dL (12.0-16.0); Mean Corp Hgb Conc. 32.9 g/dL (33.0-37.0); Mean Corpuscular Hgb 26.3 pg (27.0-31.0); Mean Corpuscular Volume 79.8 fL (81.0-99.0); Mean Platelet Volume 10.3 fL (7.4-10.4); Nucleated Red Blood Cells % 0 %; Platelet Count 378 10^3/uL (130-400); Red Cell Dist. Width 17.8 % (11.5-14.5)
[2024-04-08 05:12] LABS: ALT (SGPT) 89 U/L (0-35); AST (SGOT) 39 U/L (14-36); Albumin 2.9 g/dl (3.5-5.0); Alkaline Phosphatase 83 U/L (38-126); Blood Urea Nitrogen 30 mg/dl (7-17); Calcium 8.7 mg/dl (8.4-10.2); Carbon Dioxide 31 mmol/L (22-30); Chloride 95 mmol/L (98-107); Estimated Creatinine Clearance 45 ml/min; Glucose 113 mg/dl (70-99); Potassium 4.5 mmol/L (3.5-5.1); Sodium 133 mmol/L (135-145); Total Bilirubin 0.5 mg/dl (0.2-1.3); Total Protein 5.2 g/dl (6.3-8.2); eGFR > 60.00
--- NOTE | 2024-04-08 08:07 | W.PN.CD ---
Today's Communication / Plan
-
eliquis 2.5 bid
colchicine 0.6mg qd
Impression / Plan
-
Pericardial effusion
-s/p pericardiocentesis for 610cc on 04/03
- f/u echo 04/06/24 without recurrence
- No sign of infection by gram stain, cx to date. Fungal cultures take weeks.
-Cytology NEGATIVE for malignancy
- I think given severe inflammatory nature of fluid we should begin colchicine 0.6mg daily- she won't tolerate bid
- follow up echo in 2 weeks ( around 04/20/24)
Paroxysmal A fib with RVR, new
-cont Toprol XL 50mg bid
-CHADS2-VASC = 6. No OAC yet, with pericardial drain being pulled 04-04
- Begin Eliquis 2.5mg bid (wt is exactly 60kg, age 88)
Cardiomyopathy (unspecified) EF 40-45%, with acute HFmEF
-start with Toprol XL titration: now at 50mg bid
-lasix 40qd
-losartan resumed at half home dose.
-no SGLT2i or MRA yet
JOSE LUIS
-resolved
HTN
-hold home losartan and amlodipine to allow titration of Torpol in setting of A fib
LBBB
Mild/moderate MR
Mild AR
Physical Exam
Vital Signs/Labs
Vital Signs
Temp Pulse Resp BP Pulse Ox
97.7 F 66 16 129/81 93
04/08/24 07:41 04/08/24 06:00 04/08/24 06:00 04/08/24 06:00 04/08/24 07:04
04/07/24 04/08/24 04/09/24
06:59 06:59 06:59
Actual Weight 135 lb 5.821 oz 133 lb 9.602 oz
04/08/24 04:17
04/08/24 04:17
PT Cancelled 04/03/24 09:49
INR Cancelled 04/03/24 09:49
Magnesium 1.9 mg/dl (1.6-2.3) 04/04/24 05:18
04/02/24 04/02/24
16:24 17:06
Vfm-N-Lcpkxauwphx Pept Cancelled 21111
Physical Exam
Constitutional: No acute distress and Comfortable
Cardiovascular: Rhythm & rate is regular
GI: Distention absent
Data Reviewed
-
Date of Service: April 08, 2024
[2024-04-08 08:10] LABS: Erythrocyte Sed Rate 20 mm/hour (0-20)
[2024-04-08] MEDS: COZAAR 50 MG PO (09:37)
[2024-04-08] MEDS: DESENEX/MITRAZOL/ZEASORB 1 APPLIC TOPICAL ×2 (09:37→20:00)
[2024-04-08] MEDS: PROTONIX 40 MG PO (09:38)
[2024-04-08] MEDS: LASIX 40 MG PO (09:38)
[2024-04-08] MEDS: OCUVITE SOFTGEL 1 CAP PO (09:38)
[2024-04-08] MEDS: FLOMAX 0.4 MG PO (09:38)
[2024-04-08] MEDS: TOPROL XL 50 MG PO ×2 (09:38→20:01)
[2024-04-08] MEDS: COLCHICINE 0.6 MG PO (09:40)
[2024-04-08] MEDS: ELIQUIS 2.5 MG PO ×2 (09:40→20:01)
--- NOTE | 2024-04-08 10:46 | W.PN.PUL3 ---
Today's Communication / Plan
-
Complete antibiotic therapy for 5 days
Colchicine is started per cardiology.
Follow rheumatologic serology in the outpatient setting
Hopefully discharge soon
Sign off
Assessment
-
88-year-old woman admitted with shortness of breath, found to have large left pleural effusion as well as large pericardial effusion. Underwent thoracentesis and pericardiocentesis with improvement. Bilateral effusions appears to be a reoccurring
04/07/2024, we were consulted for evaluation.
Pleural effusion/pericardial effusion: Unclear etiology, could be from volume overload, cannot rule out connective tissue disease associated with serositis/? Viral
Additional differential diagnosis includes: Connective tissue disease associated, postviral serositis, heart failure related, less likely malignant.
Status post left thoracentesis: 1.1 L
Status post pericardiocentesis removal of 610 mL of yellow/brown turbid fluid 04/03/2024
Pericardial drain removed 04/04/2024
Abnormal LFTs: Likely due to hepatic congestion on top of fatty liver. Improved
Cardiomyopathy-new onset ejection fraction 40 to 45%
Initial leukocytosis-resolved
-
Conditions present prior admission:
Hepatic steatosis
Type 2 diabetes
Hypertension
Hyperlipidemia
Assessment and plan:
Etiology for pericardial/bilateral pleural effusions left greater than right not entirely clear. Pleural fluid appears to be exudative.
Procalcitonin elevated at 7.26
CRP 52.2 04/06/2024
Renal function normalized
TSH is normal
Liver function improved
Urinalysis without significant proteinuria
Hepatitis panel negative
SARS-cov2- negative
No evidence for cirrhosis on imaging. Does have fatty liver.
-
Pleural effusion: s/p thoracentesis 04/03/2024: pH 7.39/white blood cells 678/51% PMNs/48% mononuclear/total protein 2.2/LDH 160. Exudative.
No cytology was sent.
Culture negative
Status post pericardial drain: 04/04/2024, total protein 3.8/LDH 1758 cultures so far negative. Cytology negative for malignant cells-cytology reports marked acute inflammation present consistent with infection.
-
CT chest 04/07/2024: showed bilateral small to moderate left pleural effusion, small right pleural effusion, airspace consolidation/atelectasis within the lingula and left lower lobe. Small right pleural effusion. Significant improvement of
pericardial effusion now measuring 3 to 4 mm in thickness.
-
With increased leukocytosis on admission, increased procalcitonin, infiltrates on CAT scan infectious etiology a possibility-bacterial/viral.
Patient appears nontoxic-all cultures so far negative
okay to complete 5 days of antibiotics. Discussed with Dr. Collins
Continue to follow final cultures, so far negative.
-
Bilateral pleural effusions appears to be recurrent on CAT scan from 04/07/2024. This could be explained for component of hypoalbuminemia albumin is 2.8.
Continues to have lower extremity edema-improved but persist.
Currently denies shortness of breath at rest, not on oxygen supplementation
Okay to continue with oral diuresis and supportive care
No need for repeat thoracentesis
May follow-up in the outpatient setting
-
CRP is elevated, no significant proteinuria on urinalysis, no evidence for synovitis. Clinically no evidence for connective tissue disease but this is also possible.
Will obtain RUBÉN, anti-CCP, ANCA antibodies, sed rate. Results pending. Will need to be followed in the outpatient setting.
For now continue supportive care
Colchicine started
-
Post viral serositis, also possible.
Transaminitis improving
Leukocytosis resolved
Continue supportive care for now.
Afebrile, appears nontoxic.
Colchicine is started once a day per cardiology 04/08/2024
-
New onset heart failure with reduced ejection fraction: Diuresis per cardiology. Now on oral Lasix.
Atrial fibrillation-on anticoagulation, rate is controlled
Unclear etiology
Repeat echocardiogram 04/06/2024: Showed moderately reduced left ventricular systolic function. Ejection fraction 30 to 35%. No recurrent pericardial effusion.
Cardiology recommending repeating echocardiogram in about 2 weeks.
-
Will continue to follow
-
Okay for discharge with outpatient pulmonary follow-up from my perspective.
Subjective Data
-
Date of Service:
Date of Service: April 08, 2024
Chief Complaint: Pulmonary Follow Up (Pleural effusion)
Subjective:
No overnight events
Denies chest pain
Denies shortness of breath at rest
No significant phlegm production
Review of Systems
General: Fever (n)
Cardiopulmonary: Dyspnea (none at rest), Cough (n) and Sputum Production (n)
GI: Abdominal Pain (n) and Nausea (n)
Objective Data
Data Reviewed
Vital Signs / I&O / Oxygen:
Vital Signs
Temp Pulse Resp BP Pulse Ox
97.7 F 70 20 160/62 95
04/08/24 07:41 04/08/24 09:38 04/08/24 09:33 04/08/24 09:38 04/08/24 09:58
Intake and Output
04/07/24 04/08/24 04/09/24
06:59 06:59 06:59
Intake Total 480 / 480 120 / 120
Output Total 2100 / 2100 1000 / 1000
Balance -2100 / -2100 -520 / -520 120 / 120
SaO2 95
Nasal Cannula flow liters per 2
minute
Physical Exam
General: Comfortable
HEENT: Normocephalic
Cardiovascular: S1-S2
Respiratory: Clear, Non-Labored Respirations and Other (Decreased breath sounds both bases)
GI: Soft
Neurology: Awake, Alert and No Motor Deficits
Skin: Warm
Labs/Micro/Reports
Lab Data
04/08/24 04:17
04/08/24 04:17
Microbiology
04/03/24 16:41 Pericardial Fluid Fungal Smear - Final
No yeast or fungal elements seen.
04/03/24 16:41 Pericardial Fluid Fungal Culture - Preliminary
Culture in progress.
Positive cultures are reported as soon as detected.
Final report to follow in four to five weeks.
04/03/24 16:41 Pericardial Fluid Body Fluid Culture - Final
No Growth After 72 Hours
04/03/24 16:41 Pericardial Fluid Gram Stain - Final
04/03/24 09:20 Pleural Fluid Body Fluid Culture - Final
No Growth After 72 Hours
04/03/24 09:20 Pleural Fluid Gram Stain - Final
04/03/24 16:33 Pericardial Fluid Acid Fast Bacilli Smear - Preliminary
04/03/24 16:33 Pericardial Fluid Acid Fast Bacilli Culture - Preliminary
--- NOTE | 2024-04-08 13:42 | CM ---
Room air. Receiving IV Abx. PT recommends skilled rehab. OT recommends HH. ST; Pt seen for voice therapy.
Message from Marc Marie at [facility]; they are unsure they would have an available bed, and cannot take her if IV Abx are needed.
Spoke with [facility]; they are able to accept the patient on 04/10. The for report [phone], fax [phone].
Spoke with patient & her daughter Arianna; the patient agrees to short term SNF at [facility] and daughters agree. Arianna is aware that discharge will probably be on 04/10, per MD. Daughter asked if she could transport patient via her car- CM
informed her will need to wait until Sat to see how she is medically and with her mobility, and then decide.
Plan [facility] SNF Saturday.
--- NOTE | 2024-04-08 15:31 | PTCARENOTE ---
Patient out of bed to chair with excellent appetite today. Denying pain when asked. Family at bedside. Patient has had multiple formed bowel movements each time she voids. Skin on sacrum treated as per orders, patient and family educated about wound
care and wound healing.
--- NOTE | 2024-04-08 17:30 | W.PN.HOSP.TC ---
Today's Communication/Plan
-
will need follow up Echo in [address] see Dr[address] Saenz in [address] scan of chest to follow
Assessment / Plan
Assessment / Plan
TTE
Mild/moderately reduced left ventricular systolic function. Left ventricular
ejection fraction is 40-45%.
Global hypokinesis with abnormal (paradoxical) septal motion consistent with
left bundle branch block.
Mild/moderate eccentric mitral regurgitation.
Mild aortic regurgitation.
Large pericardial effusion. There is evidence of RA collapse. Underwent pericardiocentesis on 04/03 with removal of 610 ml of turbid fluid. drain was left in for 24 hrs and has just been removed
CT a/p
Moderate right pleural effusion with adjacent compressive atelectasis.
Small left pleural effusion after thoracentesis. Adjacent atelectasis. No evidence for pneumothorax within the left lower chest.
Moderate to large pericardial effusion as described. Elevation right hemidiaphragm. Fatty infiltration of the liver.
No evidence for bowel obstruction. No evidence of free intraperitoneal air.
2 mm probable nephrolith within the central lower pole the right kidney. Bilateral small renal cysts, including a hyperdense cyst arising from the lower pole the left kidney. No further imaging follow-up for these small cysts is needed.
Bony degenerative changes as described.
Moderate diffuse subcutaneous edema. Small amount of free fluid within the pelvic cul-de-sac.
04/[address] of chest: 1. Interval recurrence of small to moderate LEFT pleural effusion with adjacent airspace consolidation/atelectasis within the lingula and left lower lobe.
2. Small right pleural effusion.
3. Significant interval improvement of pericardial effusion now measuring 3 to 4 mm in thickness, previously 13 mm at a similar location.
4. Additional findings above.

1. Sepsis -Hypotension/leukocytosis
-Patient brought in mainly for shortness of breath
-WBC 21-->11.2-->10.3-->8.9-->7.9k, neutrophil dominant, procal 7.26
-Chest x-ray showing bilateral effusion mainly on the left side
-CT abdomen pelvis report as above
-Status post left-sided thoracentesis of 1.1 L fluid, low concern of infection based on differential
- UA 6-10 WBC, few bact
-Blood cs if spikes fever
- pericardiocentesis fluid NGTD
-Completed empiric Rocephin/azithromycin for possible pulmonary source, discussed with Dr. Saenz, he is okay with stopping abx
Pericardial drain removed 04/04
Consult placed to Dr. Saenz, agrees that current episode could have been viral induced (possibly even Covid)
Pericardial fluid negative for malignant cells (did not do cytology on thoracentesis fluid)
2. Pericardial effusion
-04/03 Echocardiogram showing large pericardial effusion with evidence of RA collapse
-s/p drainage, echo ordered for 04/06. Await fluid analysis
repeat echo 04/06: Compared to 04/03/24 (post pericardiocentesis): there remains no pericardial
effusion. LVEF looks 30-35% currently, compared to 40-45% on prior.
3. Acute systolic heart failure
Left bundle branch block
-proBNP 17,000, no previous history of CAD/PA
-Initial troponin negative in ER,
-Patient started on IV Lasix, now changed to 40 mg po daily
Losartan resumed at 50 mg daily (1/2 at home dose)
4. Acute hepatic fluid congestion
-AST 1022-->1226-->231-->132-->116-->39/ALT 464-->528-->270-->198-->169-->89
-Suspected congestive hepatopathy from cardiac tamponade
-negative hepatitis panel
-Right upper quadrant ultrasound negative, no major structural abnormality on CTAP
-Hold Crestor/Tylenol for now
-GI evaluation appreciated
5. Sacral/coccyx stage I/II pressure inj -POA
-No signs of infection on exam
-Wound care nurse evaluated
6. Type II DM - new dx
-Hemoglobin A1c of 6.2
-Glu has improved, will stop insulin sliding scale
7. Suspected urinary retention
-Continue bladder scan/straight cath protocol
8. Hyponatremia
resolved
potential dc to SNF ([facility]) on 04/10
DVT PPX - heparin
DNR
Anticipated Discharge: 24 - 48 hours
Subjective/Interval History
-
Date of Service: April 08, 2024
Appears comfortable
Objective Data
-
Vital Signs:
Vital Signs
Temp Pulse Resp BP Pulse Ox
97.7 F 63 18 128/56 98
04/08/24 15:21 04/08/24 14:00 04/08/24 14:00 04/08/24 14:00 04/08/24 11:55
I&O
04/07/24 04/08/24 04/09/24
06:59 06:59 06:59
Intake Total 480 / 480 360 / 360
Output Total 2100 / 2100 1000 / 1000 400 / 400
Balance -2100 / -2100 -520 / -520 -40 / -40
Review of Systems
-
History Source: Family (dgts, Arianna and Ladi in room with multiple concerns)
EENT: Reports No Symptoms Reported
Respiratory: Reports No Symptoms
Cardiac: Reports No Symptoms
Abdomen/GI: Reports No Symptoms; Denies Abdominal Pain
Physical Exam
-
General: Well Developed, Well Nourished and No Apparent Distress
HEENT: Normocephalic, Atraumatic and Moist Mucous Membranes
Respiratory: Decreased Breath Sounds (left base); Negative Rales (bibasilar atelectatic rales resolved)
Cardiac: Regular Rhythm and S1/S2
GI: Soft, Nontender and Nondistended
Musculoskeletal: No Clubbing, No Cyanosis and No Edema
[2024-04-08] MEDS: ZITHROMAX 500 MG PO (20:01)
[2024-04-08] MEDS: STERILE WATER FOR INJECTION 10 ML IV (20:02)
[2024-04-08] MEDS: ROCEPHIN 1000 MG IV (20:02)
--- NOTE | 2024-04-08 22:24 | PTCARENOTE ---
Caring for pt 7p-11p. aaox3 but flat & withdrawn. NSR/SB on monitor. Remains RA L base coarse. SCD's applied. OOB to BSCx1 w/ RW, steady but weak. BS 162 tonight. Foams on sacrum, b/l heels, b/l elbows all CDI. desenex applied to groin. Q2T. Call
yancey in reach, bed alarm on. Will monitor.
[2024-04-09] VITALS (11 sets, daily range): BP systolic 124–145; BP diastolic 44–98; BMI 22.0
--- NOTE | 2024-04-09 00:39 | PTCARENOTE ---
Pt received from previous RN in bed. AAOx1 (place/time) forgetful/flat. Full physical assessment documented (refer to worklist). OOB --> BSC w/assist, urinary frequency/urgency. Sacral, bilateral heel and elbow foams c/d/i. #20 RFA/#22 RW INTs
patent. Bed alarm active for safety. Call yancey within reach.
--- NOTE | 2024-04-09 08:00 | PTCARENOTE ---
received patient at change of shift from previous RN. pt resting in bed. pt drowsy, arouses to voice. oriented to person and place, disoriented to time. SR/SB on telemetry heart rate 50-60s. pulses palpable. pt 92-93% on room air, lung sounds
diminished, fine crackles. active bowel sounds. voiding frequently in bedside commode. pt 1 assist to commode. see worklist for full nursing assessment and interventions. pt updated on plan of care for day.
[2024-04-09] MEDS: OCUVITE SOFTGEL 1 CAP PO (08:17)
[2024-04-09] MEDS: PROTONIX 40 MG PO (08:17)
[2024-04-09] MEDS: FLOMAX 0.4 MG PO (08:17)
[2024-04-09] MEDS: COZAAR 50 MG PO (08:17)
[2024-04-09] MEDS: TOPROL XL 50 MG PO ×2 (08:17→19:12)
[2024-04-09] MEDS: ELIQUIS 2.5 MG PO ×2 (08:17→19:12)
[2024-04-09] MEDS: LASIX 40 MG PO (08:18)
[2024-04-09] MEDS: COLCHICINE 0.6 MG PO (08:18)
[2024-04-09] MEDS: DESENEX/MITRAZOL/ZEASORB 1 APPLIC TOPICAL ×2 (08:18→19:21)
--- NOTE | 2024-04-09 13:17 | W.PN.CD ---
Today's Communication / Plan
-
ID to evaluate the fluid results
will continue remaining medicaitons at current doses
will arrange op follow up wtih Dr Puckett
I will sign off
Impression / Plan
-
Pericardial effusion
-s/p pericardiocentesis for 610cc on 04/03
- f/u echo 04/06/24 without recurrence
- No sign of infection by gram stain, cx to date. Fungal cultures take weeks.
-Cytology NEGATIVE for malignancy but concern for ?empyema, given other fluid results, will ask ID to evaluated fluid studies
- continue colchicine daily didn't tolerate BID
- follow up echo in 2 weeks ( around 04/20/24)
Paroxysmal A fib with RVR, new
-cont Toprol XL 50mg bid
-CHADS2-VASC = 6. No OAC yet, with pericardial drain being pulled 04-04
- Begin Eliquis 2.5mg bid (wt is exactly 60kg, age 88)
Cardiomyopathy (unspecified) EF 40-45%-->30-35%, with acute HFrEF
-start with Toprol XL titration: now at 50mg bid
-lasix 40qd
-losartan resumed at half home dose.
-no MRA given hyponatremia
-consider sglt2i as op---holding off right now given age and polypharmarcy
-OP evaluation for new CMY when able
[facility]
-resolved
HTN
-hold home losartan and amlodipine to allow titration of Torpol in setting of A fib
LBBB
Mild/moderate MR
Mild AR
Subjective:
She is feeling much better no cp or sob
Physical Exam
Vital Signs/Labs
Vital Signs
Temp Pulse Resp BP Pulse Ox
97.3 F 60 20 124/50 93
04/09/24 07:30 04/09/24 12:00 04/09/24 12:00 04/09/24 12:00 04/09/24 10:00
04/08/24 04/09/24 04/10/24
06:59 06:59 06:59
Actual Weight 60.6 kg 59.9 kg
04/08/24 04:17
04/08/24 04:17
PT Cancelled 04/03/24 09:49
INR Cancelled 04/03/24 09:49
Magnesium 1.9 mg/dl (1.6-2.3) 04/04/24 05:18
04/02/24 04/02/24
16:24 17:06
Yho-[id number]-Fepvuhvvmkw Pept Cancelled [id number]
Physical Exam
Constitutional: No acute distress
Cardiovascular: Rhythm & rate is regular, Pedal edema is absent, JVD pressure is normal and Systolic murmur absent
Respiratory: Respiratory effort normal, Lungs clear to auscul., Wheeze Absent and Crackles Absent
Neuro/Psych: AO x 3
Data Reviewed
-
Date of Service: April 09, 2024
EKG: Other (sinus)
--- NOTE | 2024-04-09 13:58 | CON.ID ---
Consultation
-
Date/Time Consultation Requested: 04/09/24 13:15
Date/Time Consultation Performed: 04/09/24 13:58
Requesting Provider: Dr Ruiz
Performing Provider: Dr Tavarez
Reason for Consultation: abnormal pericardial fluid
Chief Complaint / Past History
Chief Complaint
shortness of breath
History of Present Illness
Ms Peña is an 88 year old female with history of DM who presented here 04/02 for progressive shortness of breath of note with recent knee pain and found to have lower extremity swelling; assessed as arthritis and had injection. Family reported
recent cough that has now resolved. No fevers or chills. No sick contacts. No history of malignancy.
On arrival to the ER and since she has remained afebrile, bp stable, wbc count on arrival 21 improved to 11.2 on HD2 and has not had leukocytosis x4 days, hgb 13.8, plt 417 on arrival and resolved by HD2, L shift on arrival - last assessed today and
normal, ESR 29 yesterday and 20 today, unknown cr baseline, 1.1 on arrival peaked at 1.6 and now 0.8, a1c 6.2, crp 52, t bili 1.4 on arrival resolved to 0.5 by HD2, ast 1022 on arrival peaked at 1200 and nearly normalized, alt 464 peaked at 528 and
now nearly normalized, LDH 379, CK 27, a procal was sent while in [facility] with Cr 1.4 and crcl 25 and at that time was 7.2, ua 04/04 no pyuria, 04/03 underwent first thoracentesis with pH 7.4, wbc 680, pmns 50%, total protein initially 2.2, LDH 160.
Later same day at 1600 underwent pericardiocentesis with yellowish brown fluid return, 610 ccs and hct was <1, glucose <30, protein 3.8, ldh 1658. .8 both normal, LDH 1600, 04/07 CT chest w/o contrast for recurrent effusions - small/mod L pleural
effusion and atelectasis vs consolidation of the LLL/lingula. Patient has been on ceftriaxone and azithromycin since admission 8 days ago. 04/03 L pleural effusion was tapped with 1.1L of clear yellow pleural fluid removed Echo 04/03: EF 40-45%,
large pericardial effusion with RA collapse
Past History
Additional Past Medical History:
HTN, HLD
Additional Past Surgical History:
back surgery
Allergy History:
No Known Allergies Allergy (Unverified 04/02/24 15:09)
Medications Reviewed: Yes
Social History
Tobacco: Non-Smoker
Alcohol: Occasional
Drug: None
Family History
Family History: Not Pertinent
Review of Systems
Review of Systems
General: Negative Fever or Chills
All systems: All other systems were reviewed and were negative
Vital Signs
Temp Pulse Resp BP Pulse Ox
97.3 F 60 20 124/50 93
04/09/24 07:30 04/09/24 12:00 04/09/24 12:00 04/09/24 12:00 04/09/24 10:00
Physical Exam
Physical Exam
Constitutional: No Acute Distress
Cardiovascular: Regular Rate and S1/S2; Negative Murmur or Rub
Pulmonary: Clear and Symmetric; Negative Wheezes, Rales or Rhonchi
Gastrointestinal: Soft, Non Tender, Non Distended and Normal Bowel Sounds
Skin: Warm and Dry; Negative Rash or Jaundice
Lab / Diagnostic Study Results
04/08/24 04:17
04/08/24 04:17
Abs Immat Gran (auto) 0.0 10^3/uL (0-0.05) 04/08/24 04:17
Absolute Neuts (auto) 6.3 10^3/uL (1.4-6.5) 04/08/24 04:17
Absolute Lymphs (auto) 2.1 10^3/uL (1.2-3.4) 04/08/24 04:17
Absolute Monos (auto) 0.4 10^3/uL (0.1-0.6) 04/08/24 04:17
Absolute Basos (auto) 0.0 10^3/uL (0-0.2) 04/08/24 04:17
Immature Gran % 0.2 % (0-0.5) 04/08/24 04:17
Neutrophils % 70.1 % (42.2-75.2) 04/08/24 04:17
Lymphocytes % 23.1 % (20.5-51.1) 04/08/24 04:17
Monocytes % 4.3 % (1.7-9.3) 04/08/24 04:17
Eosinophils % 2.1 % (0-6) 04/08/24 04:17
Basophils % 0.2 % (0-2) 04/08/24 04:17
ESR 20 mm/hour (0-20) 04/08/24 04:17
PT Cancelled 04/03/24 09:49
INR Cancelled 04/03/24 09:49
C-Reactive Protein 52.20 mg/L (0.0-10.00) H 04/06/24 04:49
Procalcitonin 7.26 ng/ml (0.0-0.25) H* 04/03/24 05:11
Ur Squamous Epith Cells >30 /LPF (Few) 04/04/24 21:50
Microbiology Results
Micro:
04/03/24 16:41 Fungal Smear - Final
Pericardial Fluid No yeast or fungal elements seen.
Fungal Culture - Preliminary
Culture in progress.
Positive cultures are reported as soon as detected.
Final report to follow in four to five weeks.
04/03/24 16:41 Body Fluid Culture - Final
Pericardial Fluid No Growth After 72 Hours
Gram Stain - Final
04/03/24 09:20 Body Fluid Culture - Final
Pleural Fluid No Growth After 72 Hours
Gram Stain - Final
04/03/24 16:33 Acid Fast Bacilli Smear - Preliminary
Pericardial Fluid Acid Fast Bacilli Culture - Preliminary
04/03/24 12:25 MRSA Screen - Final
Nose No Methicillin Resistant Staphylococcus aureus isolated.
04/02/24 22:26 Legionella Urinary Antigen - Final
Urine Negative for Legionella pneumophila Serogroup 1 antigen.
A negative result does not rule out the possiblity of
Legionella infection due to other serogroups or species of
Legionella. Clinical correlation is recommended.
04/02/24 19:45 Influenza Types A & B (LORE) - Final
Nasal Swab Negative for Influenza A & B, NAAT
Negative results must be combined with clinical observations
and patient history.
Nucleic Acid Amplification test (NAAT)performed on the
[employer] network platform.
Assessment / Plan
Pericardial Effusion with tamponade physiology - s/p pericardiocentesis
- 04/03 900 L pleural fluid: pH normal, wbc low without L shift, LDH low; culture finalized negative
- 04/03 1600 pericardial fluid: hct <1, glucose <30, total protein 3.8 WNL, LDH elevated at 1658 (peripheral that AM 380); culture with WBCs no organisms on the gram stain, culture finalized negative
pH, cell count, protein, glucose not sent on the pericardial fluid though these were referenced in the cardiac cath report
- pericardial fungal smear negative, culture in progress no growth to date
- pericardial abf smear negative, culture in progress no growth to date
- path: marked acute inflammation- suggestive of empyema
- covid ag neg
- 04/07 CT chest: notable for reaccumulation of bilateral pleural effusions, left small/mod, and right small
- 04/06 repeat echo: no pericardial effusion, ef 30-35%
- pericardial drain removed 04/04
- completed 8 days of ceftriaxone and azithromycin - stopped
- family state that her color is worse, her voice is suddenly very soft/hoarse and she is more tired appearing - check covid and influenza swabs
Difficult to fully assess the pericardial fluid as cell count, differential, pH not done. Aerboic culture was ultimately negative, fungal and afb smears negative - cultures in progress. Note possibility of purulent pericarditis based on pathology.
I am pleased to see that the pleural fluid is not consistent with an empyema. Given overall clinical course agree with stopping antibiotics and observing clinically, if there is evidence of relapse encouraged family to bring patient back in
Care Review
Plan reviewed with: Physician (Dr Ruiz - pleural vs pericardial fluid results)
--- NOTE | 2024-04-09 15:25 | W.PN.HOSP.TC ---
Today's Communication/Plan
-
potential dc tomorrow
Will need follow up echo and CT scan
Assessment / Plan
Assessment / Plan
TTE
Mild/moderately reduced left ventricular systolic function. Left ventricular
ejection fraction is 40-45%.
Global hypokinesis with abnormal (paradoxical) septal motion consistent with
left bundle branch block.
Mild/moderate eccentric mitral regurgitation.
Mild aortic regurgitation.
Large pericardial effusion. There is evidence of RA collapse. Underwent pericardiocentesis on 04/03 with removal of 610 ml of turbid fluid. drain was left in for 24 hrs and has just been removed
CT a/p
Moderate right pleural effusion with adjacent compressive atelectasis.
Small left pleural effusion after thoracentesis. Adjacent atelectasis. No evidence for pneumothorax within the left lower chest.
Moderate to large pericardial effusion as described. Elevation right hemidiaphragm. Fatty infiltration of the liver.
No evidence for bowel obstruction. No evidence of free intraperitoneal air.
2 mm probable nephrolith within the central lower pole the right kidney. Bilateral small renal cysts, including a hyperdense cyst arising from the lower pole the left kidney. No further imaging follow-up for these small cysts is needed.
Bony degenerative changes as described.
Moderate diffuse subcutaneous edema. Small amount of free fluid within the pelvic cul-de-sac.
04/[address] of chest: 1. Interval recurrence of small to moderate LEFT pleural effusion with adjacent airspace consolidation/atelectasis within the lingula and left lower lobe.
2. Small right pleural effusion.
3. Significant interval improvement of pericardial effusion now measuring 3 to 4 mm in thickness, previously 13 mm at a similar location.
4. Additional findings above.

1. Sepsis -Hypotension/leukocytosis
-Patient brought in mainly for shortness of breath
-WBC 21-->11.2-->10.3-->8.9-->7.9-->9.0k, neutrophil dominant, procal 7.26
-Chest x-ray showing bilateral effusion mainly on the left side
-CT abdomen pelvis report as above
-Status post left-sided thoracentesis of 1.1 L fluid, low concern of infection based on differential
- UA 6-10 WBC, few bact
-Blood cs if spikes fever
- pericardiocentesis fluid NGTD
-Completed empiric Rocephin/azithromycin for possible pulmonary source, discussed with Dr. Saenz, he is okay with stopping abx
Pericardial drain removed 04/04
Consult placed to Dr. Saenz, agrees that current episode could have been viral induced (possibly even Covid). Input from Inf Dis appreciated
Pericardial fluid negative for malignant cells (did not do cytology on thoracentesis fluid)
2. Pericardial effusion
-04/03 Echocardiogram showing large pericardial effusion with evidence of RA collapse
-s/p drainage 610 cc from pericardial sac
repeat echo 04/06: Compared to 04/03/24 (post pericardiocentesis): there remains no pericardial
effusion. LVEF looks 30-35% currently, compared to 40-45% on prior.
Plan to repeat Echo in 2 wks (around 04/20)
3. Acute systolic heart failure
Left bundle branch block
-proBNP 17,000, no previous history of CAD/MD
-Initial troponin negative in ER,
-Patient started on IV Lasix, now changed to 40 mg po daily
Losartan resumed at 50 mg daily (1/2 at home dose)
4. Acute hepatic fluid congestion, much better
-AST 1022-->1226-->231-->132-->116-->39/ALT 464-->528-->270-->198-->169-->89
-Suspected congestive hepatopathy from cardiac tamponade
-negative hepatitis panel
-Right upper quadrant ultrasound negative, no major structural abnormality on CTAP
-Hold Crestor/Tylenol for now
-GI evaluation appreciated
5. Sacral/coccyx stage I/II pressure inj -POA
-No signs of infection on exam
-Wound care nurse evaluated
6. Type II DM - new dx
-Hemoglobin A1c of 6.2
-Glu has improved, will stop insulin sliding scale
7. Suspected urinary retention
-Continue bladder scan/straight cath protocol
8. Hyponatremia
resolved
9. Paroxysmal A. Fib, Eliquis 2.5 mg bid started by cardio
10. Dementia
slowly progressing
potential dc to SNF ([facility]) on 04/10
reviewed with sweta Keller in room
DVT PPX - heparin
DNR
Anticipated Discharge: 24 - 48 hours
Subjective/Interval History
-
Date of Service: April 09, 2024
Appears comfortable
Objective Data
-
Vital Signs:
Vital Signs
Temp Pulse Resp BP Pulse Ox
97.3 F 60 20 124/50 93
04/09/24 07:30 04/09/24 12:00 04/09/24 12:00 04/09/24 12:00 04/09/24 10:00
I&O
04/08/24 04/09/24 04/10/24
06:59 06:59 06:59
Intake Total 480 / 480 360 / 360 240 / 240
Output Total 1000 / 1000 875 / 875
Balance -520 / -520 -515 / -515 240 / 240
Review of Systems
-
Unable to obtain full review of systems at this time due to: Dementia
History Source: Family (dgts, Francisco in room with multiple concerns)
EENT: Reports No Symptoms Reported
Respiratory: Reports No Symptoms
Cardiac: Reports No Symptoms
Abdomen/GI: Reports No Symptoms; Denies Abdominal Pain
Physical Exam
-
General: Well Developed, Well Nourished and No Apparent Distress
HEENT: Normocephalic, Atraumatic and Moist Mucous Membranes
Respiratory: Decreased Breath Sounds (left base); Negative Rales (bibasilar atelectatic rales resolved)
Cardiac: Regular Rhythm and S1/S2
GI: Soft, Nontender and Nondistended
Musculoskeletal: No Clubbing, No Cyanosis and No Edema
[2024-04-09 18:12] LABS: COVID-19 Antigen Negative (Negative)
--- NOTE | 2024-04-09 19:21 | PTCARENOTE ---
pt OOB with assist x1 very frequently to use bathroom. voids small amounts very frequently. pt remains drowsy, soft hoarse voice, forgetful at times. SR on telemetry heart rate in 70s. pt on room air, sat 99%. appetite good- active bowel sounds, had
a few small loose bowel movements today. no further changes in assessment noted.
[2024-04-10] VITALS (10 sets, daily range): BP systolic 117–153; BP diastolic 42–78; O2SAT 97; BMI 20.8
[2024-04-10 00:39] LABS: CCP Antibody IgG/IgA 142 Units (0-19)
--- NOTE | 2024-04-10 01:23 | PTCARENOTE ---
Caring for pt 11p-7a. aaox2-3, sometimes disoriented from time. Flat affect. c/o slight MARTÍNEZ. OOB to BSC X1RW. Pt getting stronger and able to get OOB easier. Remains RA. NSR PAC BBB >QT. BP' stablee. Q2T. SCDs. Bed alarm on, call yancey in reach.
[2024-04-10] MEDS: ULTRAM 25 MG PO (01:45)
[2024-04-10 05:47] LABS: ANA, IgG Reflex to HEp-2 None Detected (None Detected)
[2024-04-10] MEDS: COLCHICINE 0.6 MG PO (08:35)
[2024-04-10] MEDS: TOPROL XL 50 MG PO (08:35)
[2024-04-10] MEDS: PROTONIX 40 MG PO (08:36)
[2024-04-10] MEDS: LASIX 40 MG PO (08:36)
[2024-04-10] MEDS: FLOMAX 0.4 MG PO (08:36)
[2024-04-10] MEDS: COZAAR 50 MG PO (08:37)
[2024-04-10] MEDS: ELIQUIS 2.5 MG PO (08:37)
[2024-04-10] MEDS: OCUVITE SOFTGEL 1 CAP PO (08:37)
[2024-04-10] MEDS: DESENEX/MITRAZOL/ZEASORB 1 APPLIC TOPICAL (08:39)
--- NOTE | 2024-04-10 09:13 | PTCARENOTE ---
Patient stating that she feels short of breath with exertion. Pulse ox 88% on room air while sleeping, 94% on room air when sitting in chair. Crackles auscultated on left side on upper airway and decreased at base. Discussed with Dr. Collins, chest
xray to be completed.
--- NOTE | 2024-04-10 10:03 | W.PN.PUL3 ---
Today's Communication / Plan
-
Continue with current care
Discharge planning
Assessment
-
88-year-old woman admitted with shortness of breath, found to have large left pleural effusion as well as large pericardial effusion. Underwent thoracentesis and pericardiocentesis with improvement. Bilateral effusions appears to be a reoccurring
04/07/2024, we were consulted for evaluation.
Pleural effusion/pericardial effusion: Unclear etiology, could be from volume overload, cannot rule out connective tissue disease associated with serositis/? Viral
Additional differential diagnosis includes: Connective tissue disease associated, postviral serositis, heart failure related, less likely malignant.
Status post left thoracentesis: 1.1 L
Status post pericardiocentesis removal of 610 mL of yellow/brown turbid fluid 04/03/2024
Pericardial drain removed 04/04/2024
Abnormal LFTs: Likely due to hepatic congestion on top of fatty liver. Improved
Cardiomyopathy-new onset ejection fraction 40 to 45%
Initial leukocytosis-resolved
-
Conditions present prior admission:
Hepatic steatosis
Type 2 diabetes
Hypertension
Hyperlipidemia
Assessment and plan:
Pericardial/bilateral pleural effusions left greater than right - pleural fluid appears to be exudative.
Procalcitonin elevated at 7.26
CRP 52.2 04/06/2024
Renal function normalized
TSH is normal
Liver function improved
Urinalysis without significant proteinuria
Hepatitis panel negative
SARS-cov2- negative
No evidence for cirrhosis on imaging. Does have fatty liver.
-
Anti-CCP positive: May suggest rheumatoid arthritis-suggest outpatient follow-up with rheumatology.
-
Pleural effusion: s/p thoracentesis 04/03/2024: pH 7.39/white blood cells 678/51% PMNs/48% mononuclear/total protein 2.2/LDH 160. Exudative.
No cytology was sent.
Culture negative
Status post pericardial drain: 04/04/2024, total protein 3.8/LDH 1758 cultures so far negative. Cytology negative for malignant cells-cytology reports marked acute inflammation present consistent with infection.
-
CT chest 04/07/2024: showed bilateral small to moderate left pleural effusion, small right pleural effusion, airspace consolidation/atelectasis within the lingula and left lower lobe. Small right pleural effusion. Significant improvement of
pericardial effusion now measuring 3 to 4 mm in thickness.
-
With increased leukocytosis on admission, increased procalcitonin, infiltrates on CAT scan infectious etiology a possibility-bacterial/viral.
Patient appears nontoxic-all cultures so far negative
Completed 5 days of antibiotics.
Final cultures negative.
-
Bilateral pleural effusions appears to be recurrent on CAT scan from 04/07/2024. This could be explained for component of hypoalbuminemia albumin is 2.8.
Continues to have lower extremity edema-improved but persist.
Chest x-ray 04/10/2024: Showed moderate left pleural effusion, small right pleural effusion. Cardiomegaly. Subsegmental atelectasis
Not on oxygen supplementation.
Nocturnal oxygen desaturation noted
Okay to continue with oral diuresis and supportive care
Hold off on repeat thoracentesis 04/10/2024. We do only if symptoms worsen in the future.
Will follow-up in the outpatient setting-
-
CRP is elevated, no significant proteinuria on urinalysis, no evidence for synovitis. Clinically no evidence for connective tissue disease but this is also possible.
Negative RUBÉN
Positive iqrd-MJP-inmzdnu rheumatology evaluation in the outpatient setting, this could also explain serositis.
ANCA antibodies positive
-
Colchicine started per cardiology
-
Post viral serositis, also possible.
Transaminitis improving
Leukocytosis resolved
Continue supportive care for now.
Afebrile, appears nontoxic.
Colchicine is started once a day per cardiology 04/08/2024
-
New onset heart failure with reduced ejection fraction: Diuresis per cardiology.
On oral Lasix
Atrial fibrillation-on anticoagulation, rate is controlled
Unclear etiology
Repeat echocardiogram 04/06/2024: Showed moderately reduced left ventricular systolic function. Ejection fraction 30 to 35%. No recurrent pericardial effusion.
Cardiology recommending repeating echocardiogram in about 2 weeks.
-
Will continue to follow
-
Okay for discharge with outpatient pulmonary follow-up from my perspective.
-
Agree with discharge planning
Shortness of breath likely will continue as the patient is also deconditioned.
Again, would perform thoracentesis only if patient is more symptomatic.
Outpatient pulmonary follow-up
Subjective Data
-
Date of Service:
Date of Service: April 10, 2024
Chief Complaint: Pulmonary Follow Up (Pleural effusion)
Subjective:
Patient denies any new complaints
Denies increased coughing or phlegm production
She states that she is not more short of breath than before.
Noted to have oxygen desaturation at night 88%
Review of Systems
HEENT: Epistaxis (n)
Cardiopulmonary: Dyspnea (none at rest) and Cough (n)
GI: Abdominal Pain (n) and Nausea (n)
Objective Data
Data Reviewed
Vital Signs / I&O / Oxygen:
Vital Signs
Temp Pulse Resp BP Pulse Ox
97.8 F 81 21 138/78 95
04/10/24 03:41 04/10/24 08:37 04/10/24 08:34 04/10/24 08:37 04/10/24 08:35
Intake and Output
04/09/24 04/10/24 04/11/24
06:59 06:59 06:59
Intake Total 360 / 360 240 / 240
Output Total 875 / 875 350 / 350
Balance -515 / -515 -110 / -110
SaO2 95
Nasal Cannula flow liters per 2
minute
Physical Exam
General: Comfortable
HEENT: Normocephalic
Cardiovascular: S1-S2
Respiratory: Clear, Non-Labored Respirations and Other (Decreased breath sounds both bases)
GI: Soft
Neurology: Awake, Alert and No Motor Deficits
Skin: Warm
Labs/Micro/Reports
Lab Data
04/08/24 04:17
04/08/24 04:17
Microbiology
04/09/24 17:40 Nasal Swab Influenza Types A & B (LORE) - Final
Negative for Influenza A & B, NAAT
Negative results must be combined with clinical observations
and patient history.
Nucleic Acid Amplification test (NAAT)performed on the
[employer] platform.
--- NOTE | 2024-04-10 10:43 | W.PN.ID1 ---
Date of Service
Date of Service: April 10, 2024
Today's Communication
Follow up with cardiology
Assessment / Plan
Pericardial Effusion with tamponade physiology - s/p pericardiocentesis
- 04/03 900 L pleural fluid: pH normal, wbc low without L shift, LDH low; culture finalized negative
- 04/03 1600 pericardial fluid: hct <1, glucose <30, total protein 3.8 WNL, LDH elevated at 1658 (peripheral that AM 380); culture with WBCs no organisms on the gram stain, culture finalized negative
pH, cell count, protein, glucose not sent on the pericardial fluid though these were referenced in the cardiac cath report
- pericardial fungal smear negative, culture in progress no growth to date
- pericardial abf smear negative, culture in progress no growth to date
- path: marked acute inflammation- suggestive of empyema
- 04/07 CT chest: notable for reaccumulation of bilateral pleural effusions, left small/mod, and right small
- 04/06 repeat echo: no pericardial effusion, ef 30-35%
- pericardial drain removed 04/04
- completed 8 days of ceftriaxone and azithromycin - stopped 04/09
- covid and influenza swabs negative, checked given hoarse voice
Difficult to fully assess the pericardial fluid as cell count, differential, pH not done. Aerobic culture was ultimately negative, fungal and afb smears negative - cultures in progress. Note possibility of purulent pericarditis based on pathology.
I am pleased to see that the pleural fluid is not consistent with an empyema. Given overall clinical course agree with stopping antibiotics and observing clinically, if there is evidence of relapse encouraged family to bring patient back in
Follow up with cardiology
Chief Complaint
-: Other (pericardial effusion)
Subjective / Review of Systems
remains afebrile
bp stable
voice soft
complains of tiredness
Vital Signs / Physical Exam
Vital Signs
Vital Signs
Temp Pulse Resp BP Pulse Ox
97.8 F 81 21 138/78 95
04/10/24 03:41 04/10/24 08:37 04/10/24 08:34 04/10/24 08:37 04/10/24 08:35
Physical Exam
Constitutional: No Acute Distress and Chronically Ill
Cardiovascular: Regular Rate and S1/S2; Negative Murmur or Rub
Pulmonary: Clear and Symmetric; Negative Wheezes or Rales
Gastrointestinal: Soft, Non Tender, Non Distended and Normal Bowel Sounds
Skin: Warm and Dry; Negative Rash or Jaundice
Objective Data
Lab Data
Lab Results
04/08/24 04:17
04/08/24 04:17
ESR 20 mm/hour (0-20) 04/08/24 04:17
PT Cancelled 04/03/24 09:49
INR Cancelled 04/03/24 09:49
Estimated Creat Clear 45 ml/min 04/08/24 04:17
Total Bilirubin 0.5 mg/dl (0.2-1.3) 04/08/24 04:17
AST 39 U/L (14-36) H 04/08/24 04:17
ALT 89 U/L (0-35) H 04/08/24 04:17
Alkaline Phosphatase 83 U/L (38-126) 04/08/24 04:17
C-Reactive Protein 52.20 mg/L (0.0-10.00) H 04/06/24 04:49
Most recent labs reviewed.
Micro Results:
04/09/24 17:40 Influenza Types A & B (LORE) - Final
Nasal Swab Negative for Influenza A & B, NAAT
Negative results must be combined with clinical observations
and patient history.
Nucleic Acid Amplification test (NAAT)performed on the
[employer] platform.
04/03/24 16:41 Fungal Smear - Final
Pericardial Fluid No yeast or fungal elements seen.
Fungal Culture - Preliminary
Culture in progress.
Positive cultures are reported as soon as detected.
Final report to follow in four to five weeks.
04/03/24 16:41 Body Fluid Culture - Final
Pericardial Fluid No Growth After 72 Hours
Gram Stain - Final
04/03/24 09:20 Body Fluid Culture - Final
Pleural Fluid No Growth After 72 Hours
Gram Stain - Final
04/03/24 16:33 Acid Fast Bacilli Smear - Preliminary
Pericardial Fluid Acid Fast Bacilli Culture - Preliminary
04/03/24 12:25 MRSA Screen - Final
Nose No Methicillin Resistant Staphylococcus aureus isolated.
04/02/24 22:26 Legionella Urinary Antigen - Final
Urine Negative for Legionella pneumophila Serogroup 1 antigen.
A negative result does not rule out the possiblity of
Legionella infection due to other serogroups or species of
Legionella. Clinical correlation is recommended.
04/02/24 19:45 Influenza Types A & B (LORE) - Final
Nasal Swab Negative for Influenza A & B, NAAT
Negative results must be combined with clinical observations
and patient history.
Nucleic Acid Amplification test (NAAT)performed on the
[employer] platform.
--- NOTE | 2024-04-10 12:04 | W.PN.HOSP.TC ---
Today's Communication/Plan
-
dc to SNF
Assessment / Plan
Assessment / Plan
TTE
Mild/moderately reduced left ventricular systolic function. Left ventricular
ejection fraction is 40-45%.
Global hypokinesis with abnormal (paradoxical) septal motion consistent with
left bundle branch block.
Mild/moderate eccentric mitral regurgitation.
Mild aortic regurgitation.
Large pericardial effusion. There is evidence of RA collapse. Underwent pericardiocentesis on 04/03 with removal of 610 ml of turbid fluid. drain was left in for 24 hrs and has just been removed
CT a/p
Moderate right pleural effusion with adjacent compressive atelectasis.
Small left pleural effusion after thoracentesis. Adjacent atelectasis. No evidence for pneumothorax within the left lower chest.
Moderate to large pericardial effusion as described. Elevation right hemidiaphragm. Fatty infiltration of the liver.
No evidence for bowel obstruction. No evidence of free intraperitoneal air.
2 mm probable nephrolith within the central lower pole the right kidney. Bilateral small renal cysts, including a hyperdense cyst arising from the lower pole the left kidney. No further imaging follow-up for these small cysts is needed.
Bony degenerative changes as described.
Moderate diffuse subcutaneous edema. Small amount of free fluid within the pelvic cul-de-sac.
04/[address] of chest: 1. Interval recurrence of small to moderate LEFT pleural effusion with adjacent airspace consolidation/atelectasis within the lingula and left lower lobe.
2. Small right pleural effusion.
3. Significant interval improvement of pericardial effusion now measuring 3 to 4 mm in thickness, previously 13 mm at a similar location.
4. Additional findings above.

1. Sepsis -Hypotension/leukocytosis
-Patient brought in mainly for shortness of breath
-WBC 21-->11.2-->10.3-->8.9-->7.9-->9.0k, neutrophil dominant, procal 7.26
-Chest x-ray showing bilateral effusion mainly on the left side
-CT abdomen pelvis report as above
-Status post left-sided thoracentesis of 1.1 L fluid, low concern of infection based on differential
- UA 6-10 WBC, few bact
-Blood cs if spikes fever
- pericardiocentesis fluid NGTD
-Completed empiric Rocephin/azithromycin for possible pulmonary source, discussed with Dr. Saenz, he is okay with stopping abx
Pericardial drain removed 04/04
Consult placed to Dr. Saenz, agrees that current episode could have been viral induced (possibly even Covid). Input from Inf Dis appreciated
Pericardial fluid negative for malignant cells (did not do cytology on thoracentesis fluid)
2. Pericardial effusion
-04/03 Echocardiogram showing large pericardial effusion with evidence of RA collapse
-s/p drainage 610 cc from pericardial sac
repeat echo 04/06: Compared to 04/03/24 (post pericardiocentesis): there remains no pericardial
effusion. LVEF looks 30-35% currently, compared to 40-45% on prior.
Plan to repeat Echo in 2 wks (around 04/20)
3. Acute systolic heart failure
Left bundle branch block
-proBNP 17,000, no previous history of CAD/NC
-Initial troponin negative in ER,
-Patient started on IV Lasix, now changed to 40 mg po daily
Losartan resumed at 50 mg daily (1/2 at home dose)
4. Acute hepatic fluid congestion, much better
-AST 1022-->1226-->231-->132-->116-->39/ALT 464-->528-->270-->198-->169-->89
-Suspected congestive hepatopathy from cardiac tamponade
-negative hepatitis panel
-Right upper quadrant ultrasound negative, no major structural abnormality on CTAP
-Hold Crestor/Tylenol for now
-GI evaluation appreciated
5. Sacral/coccyx stage I/II pressure inj -POA
-No signs of infection on exam
-Wound care nurse evaluated
6. Type II DM - new dx
-Hemoglobin A1c of 6.2
-Glu has improved, will stop insulin sliding scale
7. Suspected urinary retention
-Continue bladder scan/straight cath protocol
8. Hyponatremia
resolved
9. Paroxysmal A. Fib, Eliquis 2.5 mg bid started by cardio
10. Dementia
slowly progressing
dc to SNF ([facility]) today, 04/10
reviewed with sweta Keller in room
DVT PPX - heparin
DNR
More than 30 minutes spent in discharge including
Final examination of the patient
Summarizing hospital stay
Instructions for continuing care to all relevant caregivers
Preparation of discharge records, prescriptions, and referral forms
Total time spent (in minutes): 45
Anticipated Discharge: Today
Subjective/Interval History
-
Date of Service: April 10, 2024
Remains weak
Objective Data
-
Vital Signs:
Vital Signs
Temp Pulse Resp BP Pulse Ox
97.9 F 73 22 145/54 96
04/10/24 11:26 04/10/24 10:00 04/10/24 10:00 04/10/24 10:00 04/10/24 11:42
I&O
04/09/24 04/10/24 04/11/24
06:59 06:59 06:59
Intake Total 360 / 360 240 / 240 120 / 120
Output Total 875 / 875 350 / 350 300 / 300
Balance -515 / -515 -110 / -110 -180 / -180
Review of Systems
-
History Source: Patient and Family (dgt, Arianna)
Constitutional: Denies Fever
EENT: Reports No Symptoms Reported
Respiratory: Reports Trouble Breathing
Cardiac: Denies Chest Pain
Abdomen/GI: Denies Abdominal Pain
Physical Exam
-
General: Well Developed, Well Nourished and No Apparent Distress
HEENT: Normocephalic, Atraumatic and Moist Mucous Membranes
Respiratory: Decreased Breath Sounds (left base); Negative Rales (bibasilar atelectatic rales resolved)
Cardiac: Regular Rhythm and S1/S2
GI: Soft, Nontender and Nondistended
Musculoskeletal: No Clubbing, No Cyanosis and No Edema
--- NOTE | 2024-04-10 13:06 | CM ---
Addendum entered by Chantell Anne RN 04/10/24 14:15:
Message from [facility] Nurse; patient has a new DTI to her sacral coccyx area. Request for an air mattress at [facility].
Message sent to [facility] who confirmed air mattress will be ordered.
Original Note:
O2 2L. PT 04/10 recommends skilled rehab. OT 04/08 recommends HH.
Spoke with Nilton Collins & Dany about patient status; patient ok for d/c to SNF today.
Spoke with [facility]; they are able to accept the patient today. The ph for report [phone], fax [phone].
Met with patient & her daughter Arianna; both agree to d/c today to [facility] SNF by ambulance. IMM completed.
Plan [facility] SNF today by ambulance.
--- NOTE | 2024-04-10 13:22 | W.HF.CON ---
Heart Failure
- LV Function
Left ventricular function study result: LV Ejection fraction </= 35%
Ejection Fraction Percentage: 30-35
- ARNI
Patient already on ARNI: No
Heart Failure ARNI Contraindication: Acute Renal Failure
- ACEI/ARB
Patient already on ACEI/ARB: Yes
- Beta Quang
Patient already on Evidence Based Beta Quang: Yes
- Mineralocorticord Receptor Antagonist
Patient already on MRA: No
Heart Failure MRA Contraindication: Acute Renal Insufficiency
- SGLT-2 Inhibitor
Patient already on SGLT-2 Inhibitor: No
Heart Failure SGLT-2 Inhibitor Contraindication: Patient Refusal
- Afib Anticoagulation
Patient already on Anticoagulation for Afib: Yes
- NYHA CHF Classification
NYHA CHF Classification Level: Class III - Symptoms w/ min exertion, interferes w/ nml daily activity
- ACC/AHA Stage
ACC/AHA Stage: Stage C: Symptomatic Heart Failure
--- NOTE | 2024-04-10 14:02 | WOUNDNOTE ---
[facility] RN NOTE: This typewriter operator automatic alerted of new DTI of sacral coccyx. Patient found sitting in recliner with air cushion. The 5 layer silicone foam was peeled back and a .2x.2 purple/reddish DTI was noted on sacral coccyx. The foam dressing was maintained
and reapplied to DTI. The stage 2 PI that was previously noted on 04/03 has progressed toward healing. Spoke to patients daughter at bedside and explained that wound may evolve and goal is to off-load sacrum with repositioning, turning and air
cushion when in chair. Daughter purchased foam cushion with cut out sacral area for patient to use at SNF. Plan is for patient to go to SNF today. TT KENTON Bosch and REM[facility]ERT[facility] at SNF will order air mattress for patient. Per chart review, patients intake has
been fair. Her albumin today is 2.9 and BMI is 19. Patient has several comorbidities including HF. Wounds may worsen and new wounds may develop even with optimal care. Will confirm orders and update care plan.
[2024-04-10 16:35] LABS: Myeloperoxidase Antibody 0 AU/mL (0-19); Serine Protease-3, IgG 0 AU/mL (0-19)
--- NOTE | 2024-04-11 07:35 | W.DS.TRANS ---
DC Summary - Energy Conservation Specialist
-
Discharge Instructions:
Discharge Diagnosis/Procedures Pericardial effusion post pericadiocentesis
Diet Low Sodium
Activity With assistance
Driving Restrictions No driving
Bathing Restrictions None
Others Tests Follow-up echocardiogram 04/24/2024 at 1 PM.
This is at the [facility] in
[place]. Please arrive 15 minutes early.
Instructions: *PCP/Other Demolitionist Heart Failure Instructions
Stand-Alone Forms: DC Instructions- Cath/EP Lab
Changes to Home Medications: Yes
Discharge Medications:
DC Medications w/original date entered in [employer]
famotidine 20 mg tablet 20 mg PO QPM Gastrointestinal Issue 04/02/24
fenofibric acid (choline) 135 mg capsule,delayed release 135 mg PO DAILY High Cholesterol 04/02/24
omega 5-rxr-ubk-fish oil 1,000 mg (120 mg-180 mg) capsule (Fish Oil) 1 cap PO BID Supplement 04/02/24
omeprazole 40 mg capsule,delayed release 40 mg PO DAILY Gastrointestinal Issue 04/02/24
rosuvastatin 5 mg tablet 5 mg PO DAILY High Cholesterol 04/02/24
vitamins A,C,P-ekby-tcoesv 4,296 mcg-226 mg-90 mg capsule (PreserVision AREDS) 1 cap PO DAILY Supplement 04/02/24
apixaban 2.5 mg tablet (Eliquis) 2.5 mg PO BID #60 tabs 04/10/24
colchicine 0.6 mg tablet 0.6 mg PO DAILY #0 tabs 04/10/24
furosemide 40 mg tablet 40 mg PO DAILY #0 tabs 04/10/24
losartan 50 mg tablet 50 mg PO DAILY #0 tabs 04/10/24
metoprolol succinate 25 mg tablet,extended release 24 hr 50 mg (2 x 25 mg) PO BID #0 tabs 04/10/24
miconazole nitrate 2 % topical powder (Miconazorb AF) 1 applic topical BID Skin issues #85 grams 04/10/24
tamsulosin 0.4 mg capsule 0.4 mg PO DAILY #30 caps 04/10/24
Home Medication Changes
Colchicine has been started
Losartan and Toprol doses have been decreased
Lasix has been added
Eliquis started
Pending Results: No
== END 2024-04-10 16:17 | DRG 871 ==
LOC: IMU 19:58
PROVIDERS: Hospitalist; Internal Medicine Cardiovascular Disease; Nurse Practitioner Family; Physician Assistant; Radiology Diagnostic Radiology; ADMITTING PHYSICIAN Internal Medicine; ATTENDING PHYSICIAN Internal Medicine; CONSULT PHYSICIAN Internal Medicine Critical Care Medicine; CONSULT PHYSICIAN Internal Medicine Gastroenterology; CONSULT PHYSICIAN Student in an Organized Health Care Education/Training Program; EMERGENCY PHYSICIAN Emergency Medicine; FAMILY PHYSICIAN Physician Assistant
PROC: 0W9D3ZZ Drainage of Pericardial Cavity, Percutaneous Approach (ICD-10-PCS; 2024-04-03)
PROC: 0W9B3ZX Drainage of Left Pleural Cavity, Percutaneous Approach, Diagnostic (ICD-10-PCS; 2024-04-03)
DX: A41.9 Sepsis, unspecified organism (principal); I50.21 Acute systolic (congestive) heart failure; J90 Pleural effusion, not elsewhere classified; J98.11 Atelectasis; I31.39 Other pericardial effusion (noninflammatory); I31.4 Cardiac tamponade; E87.1 Hypo-osmolality and hyponatremia; F03.918 Unspecified dementia, unspecified severity, with other behavioral disturbance; N17.9 Acute kidney failure, unspecified; I11.0 Hypertensive heart disease with heart failure; E11.9 Type 2 diabetes mellitus without complications; Z79.01 Long term (current) use of anticoagulants; I48.0 Paroxysmal atrial fibrillation; Z66 Do not resuscitate; Z11.52 Encounter for screening for COVID-19
CPT/HCPCS: 88305; 93308; 32555; 33016; 71045; 71250; 74176; 76700; 80048; 80053; 80076; 80143; 81003; 81015; 82550; 82945; 82962; 83036; 83516; 83615; 83735; 83880; 83986; 84145; 84157; 84443; 84484; 85014; 85025; 85027; 85652; 86038; 86140; 86200; 86704; 86706; 86708; 86803; 87015; 87070; 87102; 87116; 87205; 87206; 87340; 87449; 87502; 87811; 88112; 89051; 92507; 92523; 92526; 92610; 93005; 93306; 94640; 96374; 96375; 97116; 97163; 97166; 97530; 97535; 99285; C1894

== ENCOUNTER → 2024-04-14 10:28 | Outpatient (REF) | payer OTHER, MEDICARE, SELFPAY ==
[2024-04-14 11:17] LABS: Blood Urea Nitrogen 18 mg/dl (7-17); Calcium 8.7 mg/dl (8.4-10.2); Carbon Dioxide 29 mmol/L (22-30); Chloride 99 mmol/L (98-107); Glucose 103 mg/dl (70-99); Potassium 4.2 mmol/L (3.5-5.1); Sodium 138 mmol/L (135-145); eGFR > 60.00
[2024-04-14 11:26] LABS: Hematocrit 38.2 % (37.0-47.0); Hemoglobin 12.3 g/dL (12.0-16.0); Mean Corp Hgb Conc. 32.2 g/dL (33.0-37.0); Mean Corpuscular Hgb 26.5 pg (27.0-31.0); Mean Corpuscular Volume 82.2 fL (81.0-99.0); Mean Platelet Volume 9.8 fL (7.4-10.4); Platelet Count 411 10^3/uL (130-400); Red Blood Cell Count 4.65 10^6/uL (4.20-5.40); Red Cell Dist. Width 17.9 % (11.5-14.5); White Blood Cell Count 9.1 10^3/uL (4.8-10.8)
== END ==
LOC: OLABP 10:28
PROVIDERS: ATTENDING PHYSICIAN Family Medicine
DX: E87.1 Hypo-osmolality and hyponatremia (principal); A41.9 Sepsis, unspecified organism; I50.21 Acute systolic (congestive) heart failure; R74.01 Elevation of levels of liver transaminase levels; F10.10 Alcohol abuse, uncomplicated; L89.152 Pressure ulcer of sacral region, stage 2; E78.5 Hyperlipidemia, unspecified; E11.9 Type 2 diabetes mellitus without complications; I48.0 Paroxysmal atrial fibrillation; N17.9 Acute kidney failure, unspecified; I31.39 Other pericardial effusion (noninflammatory)
CPT/HCPCS: 36415; 80048; 85027

== ENCOUNTER → 2024-05-14 13:52 | Outpatient (REF) | payer MEDICARE, OTHER, SELFPAY | LOC: HWRCS 13:52 | PROVIDERS: ATTENDING PHYSICIAN Internal Medicine Cardiovascular Disease; FAMILY PHYSICIAN Student in an Organized Health Care Education/Training Program | DX: I31.39 Other pericardial effusion (noninflammatory) (principal); I50.9 Heart failure, unspecified | CPT/HCPCS: 93308 ==

== ENCOUNTER → 2024-06-17 10:41 | Outpatient (REF) | payer MEDICARE, OTHER, SELFPAY ==
[2024-06-17 15:40] LABS: % Basophils 0.2 % (0-2); % Eosinophils 7.1 % (0-6); % Immature Granulocytes 0.2 % (0-0.5); % Lymphocytes 31.4 % (20.5-51.1); % Monocytes 4.3 % (1.7-9.3); % Neutrophils 56.8 % (42.2-75.2); Absolute Eosinophils 0.4 10^3/uL (0-0.7); Absolute Lymphocytes 1.5 10^3/uL (1.2-3.4); Absolute Monocytes 0.2 10^3/uL (0.1-0.6); Absolute Neutrophils 2.8 10^3/uL (1.4-6.5); Hemoglobin 12.2 g/dL (12.0-16.0); Mean Corpuscular Hgb 28.4 pg (27.0-31.0); Mean Platelet Volume 9.9 fL (7.4-10.4); Nucleated Red Blood Cells % 0 %; Platelet Count 335 10^3/uL (130-400); Red Cell Dist. Width 15.5 % (11.5-14.5); White Blood Cell Count 4.9 10^3/uL (4.8-10.8)
[2024-06-17 15:43] LABS: Urine Albumin 2+ (Neg - Trace); Urine Bilirubin Negative (Negative); Urine Character Clear (Clear); Urine Color Yellow; Urine Glucose Negative (Negative); Urine Ketone Negative (Negative); Urine Leukocyte 1+ (Negative); Urine Nitrite Negative (Negative); Urine Occult Blood Negative (Negative); Urine Specific Gravity 1.015 (<1.030); Urine Urobilinogen Negative (Neg - 1+)
[2024-06-17 16:06] LABS: Microalbumin, Random Urine 4.3 mg/dl (0.6-1.7)
[2024-06-17 16:17] LABS: Urine Bacteria Few (Negative); Urine Calcium Oxalate Crystals Present; Urine Mucus Few; Urine White Cell 0-2 /HPF (0-5)
[2024-06-17 17:17] LABS: ALT (SGPT) 12 U/L (0-35); AST (SGOT) 20 U/L (14-36); Albumin 2.7 g/dl (3.5-5.0); Alkaline Phosphatase 81 U/L (38-126); Blood Urea Nitrogen 15 mg/dl (7-17); Calcium 9.1 mg/dl (8.4-10.2); Carbon Dioxide 25 mmol/L (22-30); Chloride 100 mmol/L (98-107); Glucose 86 mg/dl (70-99); HDL Cholesterol 24 mg/dl; LDL Cholesterol, Calculated 60 mg/dl; Potassium 3.6 mmol/L (3.5-5.1); Sodium 134 mmol/L (135-145); Total Bilirubin 0.7 mg/dl (0.2-1.3); Total Cholesterol 111 mg/dl (50-199); Total Protein 5.2 g/dl (6.3-8.2); Triglyceride 136 mg/dl (10-149); Very Low Density Lipoprotein 27 mg/dl (0-30); eGFR > 60.00
[2024-06-17 18:04] LABS: Vitamin D, 25-OH*** 33.9 ng/mL (30-80)
[2024-06-17 18:17] LABS: TSH Reflex To Free T4 1.25 uIU/ml (0.47-4.68)
[2024-06-17 18:53] LABS: Folate 5.1 ng/ml (2.76-20); Vitamin B12 242 pg/ml (239-931)
[2024-06-18 08:24] LABS: Glycohemoglobin (HgbA1c) 5.4 % (4.0-5.6)
== END ==
LOC: HWLAB 10:41
PROVIDERS: ATTENDING PHYSICIAN Physician Assistant; REFERRING PHYSICIAN Nurse Practitioner
DX: A41.9 Sepsis, unspecified organism (principal); J90 Pleural effusion, not elsewhere classified; L89.152 Pressure ulcer of sacral region, stage 2; E11.22 Type 2 diabetes mellitus with diabetic chronic kidney disease; N18.2 Chronic kidney disease, stage 2 (mild); E78.2 Mixed hyperlipidemia; N17.9 Acute kidney failure, unspecified; I31.4 Cardiac tamponade; R53.82 Chronic fatigue, unspecified; M81.0 Age-related osteoporosis without current pathological fracture
CPT/HCPCS: 36415; 80053; 80061; 81003; 81015; 82043; 82306; 82570; 82607; 82746; 83036; 84443; 85025

== ENCOUNTER → 2024-07-22 12:02 | Outpatient (REF) | payer MEDICARE, OTHER, SELFPAY ==
[2024-07-22 17:47] LABS: Folate 3.4 ng/ml (2.76-20); Vitamin B12 240 pg/ml (239-931)
== END ==
LOC: HWLAB 12:02
PROVIDERS: ATTENDING PHYSICIAN Physician Assistant
DX: R53.82 Chronic fatigue, unspecified (principal); E78.2 Mixed hyperlipidemia; R63.4 Abnormal weight loss
CPT/HCPCS: 36415; 82607; 82746

== ENCOUNTER 2024-09-06 23:32 | Inpatient (IN) | payer MEDICARE, OTHER, SELFPAY ==
[2024-09-06 16:52] VITALS: BP 118/42
[2024-09-06 17:29] LABS: % Basophils 0.2 % (0-2); % Eosinophils 4.1 % (0-6); % Immature Granulocytes 0.3 % (0-0.5); % Lymphocytes 31.1 % (20.5-51.1); % Monocytes 2.7 % (1.7-9.3); % Neutrophils 61.6 % (42.2-75.2); Absolute Eosinophils 0.3 10^3/uL (0-0.7); Absolute Monocytes 0.2 10^3/uL (0.1-0.6); Absolute Neutrophils 3.9 10^3/uL (1.4-6.5); Hematocrit 30.3 % (37.0-47.0); Hemoglobin 10.2 g/dL (12.0-16.0); Mean Corp Hgb Conc. 33.7 g/dL (33.0-37.0); Mean Corpuscular Hgb 28.7 pg (27.0-31.0); Mean Corpuscular Volume 85.4 fL (81.0-99.0); Mean Platelet Volume 8.6 fL (7.4-10.4); Nucleated Red Blood Cells % 0 %; Platelet Count 355 10^3/uL (130-400); Red Blood Cell Count 3.55 10^6/uL (4.20-5.40); Red Cell Dist. Width 14.6 % (11.5-14.5); White Blood Cell Count 6.3 10^3/uL (4.8-10.8)
[2024-09-06 17:49] LABS: ALT (SGPT) 19 U/L (0-35); AST (SGOT) 19 U/L (14-36); Albumin 2.6 g/dl (3.5-5.0); Alkaline Phosphatase 98 U/L (38-126); Blood Urea Nitrogen 18 mg/dl (7-17); Calcium 9.1 mg/dl (8.4-10.2); Carbon Dioxide 24 mmol/L (22-30); Chloride 94 mmol/L (98-107); Glucose 113 mg/dl (70-99); Potassium 4.6 mmol/L (3.5-5.1); Sodium 125 mmol/L (135-145); Total Bilirubin 0.3 mg/dl (0.2-1.3); Total Protein 4.9 g/dl (6.3-8.2); eGFR > 60.00
[2024-09-06 17:59] LABS: NT-proBNP 5180 pg/ml
[2024-09-06 19:28] VITALS: BMI 22.1
[2024-09-06 19:34] VITALS: BP 121/53
[2024-09-06 20:00] VITALS: BP 115/53
--- NOTE | 2024-09-06 20:03 | ED.GENMED ---
History of Present Illness
General
Chief Complaint: Weakness
Source: patient and family (Daughter and son who are at the bedside)
Exam Limitations: none
Time Seen by Provider: 09/06/24 19:15
Nursing documentation reviewed up to this point in time: agreed with
History of Present Illness
History of Present Illness:
The patient is an 88-year-old female with a past medical history of CHF and A-fib who comes in with complaints of several days of increased bilateral lower leg edema and shortness of breath. Patient reports that she also feels so weak that she is
unable to get up and walk around with her walker which she normally is able to. Patient denies fever and increased cough. Patient denies black or bloody stools. She denies burning when she urinates. She denies sore throat and she denies chest
pain
Past History
Past History
ED Past Medical History: Arrthythmia, CHF and HTN
ED Past Surgical History: Other
Social History
Tobacco: Non-smoker
Alcohol: None
Drug: None
Personal: Other
Living: with family
Employment: Other
Family History
Family History: Other
Review of Systems
Review of Systems
Allergies reviewed?: Yes
All Other Systems: ROS reviewed and negative except as documented in HPI and ROS
Constitutional: Reports fatigue
EENT: Reports no symptoms
Respiratory: Reports trouble breathing
Cardiac: Reports no symptoms
ABD/GI: Reports no symptoms
: Reports no symptoms
Musculoskeletal: Reports edema
Skin: Reports no symptoms
Neurological: Reports no symptoms
Endocrine: Reports no symptoms
Hematologic/Lymphatic: Reports no symptoms
Psychiatric: Reports no symptoms
Phy Exam
Physical Exam
Physical Exam:
Physical Exam
General: Patient appears tired but is fully awake and answering questions
Neck: supple. no meningeal signs. normal psoterior pharynx
Heart: s1/s2 regular rate and rhythm, no murmur. equal radial pulses.
Lungs: no acute respiratory distress. Decreased breath sounds bilaterally
Abdomen: normal bowel sounds. not tender. no CVAT
Neuro: alert and oriented. no focal neurological deficits
Skin: no rash
Psychiatric: well kept. interactive and cooperative
Extremities: 2+ pitting edema bilateral lower extremities. Negative Homans' sign.
Course
Orders/Labs/Results
Orders:
Orders
09/06/24 16:59
Electrocardiogram (*1) Urgent
Reason for Study: Fatigue / Weakness
EKG- Treatment ONCE
09/06/24 17:14
Complete Blood Count/With Diff Urgent
Comprehensive Metabolic Panel Urgent
NT-proBNP Urgent
09/06/24 20:04
CR Chest - 2 Views Urgent
Comment:
Reason For Exam: SOB, edema
09/06/24 21:10
Urinalysis Reflex To Culture Urgent
Date Specimen was Collected: 09/06/24
Time Specimen was Collected: 21:09
Urine Sodium Urgent
Date Specimen was Collected: 09/06/24
Time Specimen was Collected: 21:09
09/06/24 22:47
Furosemide [Lasix] 40 mg IV NOW STA
Abnormal Lab Results
09/06/24 09/06/24
17:14 21:10
RBC 3.55 L 10^6/uL
(4.20-5.40)
Hgb 10.2 L g/dL
(12.0-16.0)
Hct 30.3 L %
(37.0-47.0)
RDW 14.6 H %
(11.5-14.5)
Sodium 125 L mmol/L
(135-145)
Chloride 94 L mmol/L
(98-107)
BUN 18 H mg/dl
(7-17)
Creatinine 0.5 L mg/dL
(0.6-1.0)
Glucose 113 H mg/dl
(70-99)
Total Protein 4.9 L g/dl
(6.3-8.2)
Albumin 2.6 L g/dl
(3.5-5.0)
Urine Sodium 29 L mmol/L
(30-90)
09/06/24 17:14
09/06/24 17:14
Vital Signs
Initial and Last Documented VS:
Initial Vital Signs
Temp Pulse Resp BP Pulse Ox
97.6 F 71 16 118/42 99
09/06/24 16:52 09/06/24 16:52 09/06/24 16:52 09/06/24 16:52 09/06/24 16:52
Last Documented Vital Signs
Temp Pulse Resp BP Pulse Ox
97.6 F 67 17 115/53 96
09/06/24 16:52 09/06/24 20:00 09/06/24 20:00 09/06/24 20:00 09/06/24 20:00
MDM/Problems Addressed
Differential Diagnosis Includes:
Acute on chronic CHF, pneumonia, UTI, hyponatremia
MDM/Problems Addressed:
Patient presents with acute generalized weakness and acute shortness of breath and edema
Chronic conditions affecting care: Cardiomyopathy
Acute Exacerbation and/or Progression of Chronic Illness:
Patient may have acute exacerbation of chronic heart failure. Patient also may have recurrent pleural effusion
Acute Exacerbation and/or Progression of Chronic Illness: Cardiomyopathy
*Radiology
Radiology exam reviewed: preliminary read by ED provider (Cardiomegaly)
*Pulse Oximetry
Patient hypoxic: no
*EKG
Interpreted by ED Provider?: Yes
Interpretation: abnormal
Comparison EKG: changes noted
Rate: normal
Rhythm: sinus
Frostproof: left axis deviation
Interval: normal interval
QRS Pattern: left bundle branch block
Ischemia: non-specific ST changes
*Forming And Assembling Supervisor Interpretation
Rate: normal
Interpretation: normal
Rhythm: sinus
*Critical Care Note
Total Time (30-74mins, 75-104mins- exclusive of procedures): Not Applicable
Data Reviewed
Review of Other/Old Records Reveals: Discharge Summary (Discharge summary reviewed from March 2024 when patient was admitted for bilateral pleural effusions and pericardial effusion)
Source: patient and family
Patient Management
Social determinants of health affecting care: Living situation and Strong social support
Discussion with other providers: Hospitalist
ED Attending Note
-
Portions of this chart may have been created with voice recognition software.� Occasional wrong word or��sound alike� substitutions may have occurred due to the inherent limitations of voice recognition software.
Discharge Plan
Departure
Patient Disposition: Admit
Date of Disposition: 09/06/24
Time of Disposition: 22:45
Admit to: Telemetry
Presentation/result/management discussed w/ accepting MD/DO: Hospitalist
Condition: Good
Covid-19: Not Applicable
Discharge Problem:
Generalized weakness, Acute on chronic CHF, Symptomatic hyponatremia
Prescriptions:
No Action
omeprazole 40 mg Capsule,Delayed Release(Dr/Ec)
40 mg PO DAILY
rosuvastatin 5 mg Tablet
5 mg PO DAILY
PreserVision AREDS 4,296 mcg-226 mg-90 mg Capsule
1 cap PO DAILY
omega 3-txu-ado-fish oil [Fish Oil] 1,000 (120-180) mg Capsule
1 cap PO BID
colchicine 0.6 mg Tablet
0.6 mg PO DAILY Qty: 0 0RF
amlodipine 5 mg Tablet
5 mg PO DAILY
losartan 50 mg tablet
100 mg PO DAILY
metoprolol succinate 25 mg tablet extended release 24 hr
50 mg PO DAILY
Referrals:
Propato,Guzmán Erika, PA-C [Family Provider] -
Interventions
Interventions:
*Risk Screen - Suicide Last Done: 09/06/24 16:56
*General Assessment Last Done: 09/06/24 19:32
*Neglect/Abuse Screening Last Done: 09/06/24 19:32
*ED- Fall Risk Assessment Last Done: 09/06/24 19:32
*ED COVID-19 Vaccine History Last Done: 09/06/24 16:56
Discharge Date and Time
Print Language: SURINAMESE
[2024-09-06 21:18] LABS: Urine Albumin Negative (Neg - Trace); Urine Bilirubin Negative (Negative); Urine Character Clear (Clear); Urine Color Yellow; Urine Glucose Negative (Negative); Urine Ketone Negative (Negative); Urine Leukocyte Negative (Negative); Urine Nitrite Negative (Negative); Urine Occult Blood Negative (Negative); Urine Urobilinogen Negative (Neg - 1+)
[2024-09-06 21:31] LABS: Urine Sodium 29 mmol/L (30-90)
--- NOTE | 2024-09-06 23:03 | HPS.HSE ---
Family Physician
-
Family Physician: Arielle Robertson
Chief Complaint
-
increased bilateral lower leg edema and shortness of breath.
History of Present Illness
I could not get any information from the patienthas dementia
Information gathered by chart review and speaking with the ER staff.
HPI
88F with dementia HX HFrEF, Pericardial efesuion s/p pericardiocenteiss , HX Prx AF seen at ER:
- pw several days of increased bilateral lower leg edema and shortness of breath.
- she also feels so weak that she is unable to get up and walk around with her walker which she normally is able to.
- denies fever and increased cough.
- denies black or bloody stools.
- she denies chest pain
At ER
IV Lasix 40 mg
Medical History
Past Medical History
Past Medical History: Reports HTN and Hypercholesterolemia
Past Surgical History: Reports Orthopedic (back surgery) and Other
Social History
Tobacco: Non-smoker
Alcohol: Occasional
Drug: None
Personal:
Living: With Family
Employment: Retired
Family History
Family History: Not pertinent
Allergies / Home Medications
Allergies reflects when Allergies were last updated in [facility].
Home Medications with original date entered in [facility]
Allergy/Medication List:
Allergies
Allergy/AdvReac Type Severity Reaction Status Date / Time
No Known Allergies Allergy Unverified 04/02/24 15:09
Home Medications
amlodipine 5 mg tablet 5 mg PO DAILY 04/02/24
famotidine 20 mg tablet 20 mg PO QPM 04/02/24
fenofibric acid (choline) 135 mg capsule,delayed release 135 mg PO DAILY 04/02/24
losartan 100 mg tablet 100 mg PO QPM 04/02/24
metoprolol succinate 25 mg tablet,extended release 24 hr 25 mg PO DAILY 04/02/24
omega 7-zmg-uhs-fish oil 1,000 mg (120 mg-180 mg) capsule (Fish Oil) 1 cap PO BID 04/02/24
omeprazole 40 mg capsule,delayed release 40 mg PO DAILY 04/02/24
rosuvastatin 5 mg tablet 5 mg PO DAILY 04/02/24
vitamins A,C,V-akgq-tcvvdh 4,296 mcg-226 mg-90 mg capsule (PreserVision AREDS) 1 cap PO DAILY 04/02/24
Review of Systems
-
Constitutional: Reports No Symptoms
EENT: Reports No Symptoms
Respiratory: Reports Trouble Breathing
Cardiac: Reports See HPI
Abdomen/GI: Reports No Symptoms
: Reports No Symptoms
Musculoskeletal: Reports Edema (increased bilateral lower leg edema )
Skin: Reports No Symptoms
Neurological: Reports No Symptoms
Endocrine: Reports No Symptoms
Hematologic/Lymphatic: Reports No Symptoms
Psych: Reports No Symptoms
Physical Exam
Vital Signs
Vital Signs
Temp Pulse Resp BP Pulse Ox
97.6 F 67 17 115/53 96
09/06/24 16:52 09/06/24 20:00 09/06/24 20:00 09/06/24 20:00 09/06/24 20:00
Physical Exam
General: Well Developed, Well Nourished and No Apparent Distress
HEENT: NormoCephalic, Moist mucous membranes and Atraumatic
Respiratory: Clear
Cardiac: S1/S2 and Regular Rhythm; No Murmur or Rub
GI: Soft, Non Tender, Non Distended and Normal Bowel Sounds; No Organomegaly
Rectal: Deferred by Provider
Musculoskeletal: Edema, Left Upper Extremity and Edema, Right Upper Extremity
Skin: No Rash
Neuro: Nonfocal/grossly intact
Laboratory Results
-
09/06/24 17:14
09/06/24 17:14
Laboratory Results
Total Bilirubin 0.3 mg/dl (0.2-1.3) 09/06/24 17:14
AST 19 U/L (14-36) 09/06/24 17:14
ALT 19 U/L (0-35) 09/06/24 17:14
Alkaline Phosphatase 98 U/L (38-126) 09/06/24 17:14
Data Reviewed
-
Diagnostic Radiology: Other
Medical Tests (Nuc Med, Echo, EKG etc): Report Reviewed by me
Lab Data: Labs Reviewed by me
Impression/Plan
-
VS
04/10/24
03:42 09/06/24
16:52 09/06/24
19:28
Temp 97.6 F
Pulse 71
Resp Rate 16
Blood pressure 118/42
SaO2 99
Oxygen Mode of Delivery Room air
Actual Weight 56.8 kg 58.3 kg
Labs
04/02/24 06/17/24 09/06/24
17:06 11:21 17:14
WBC 6.3
Hgb 12.2 10.2 L
Sodium 134 L 125 L
BUN 15 18 H
Creatinine 0.5 L 0.5 L
eGFR > 60.00 > 60.00
Bxu-Q-Cunmapfpbyv Pept [id number] 5180
Pending final CXR report
05/14/24 TTE:
Mildly to moderately reduced left ventricular systolic function.
Estimated ejection fraction 40 %.
Moderate mitral regurgitation.
Moderate tricuspid regurgitation.
Estimated pulmonary artery pressure of 50-55 mmHg.
Compared to the previous report previous estimated ejection fraction 30 to 35% and pleural effusion is no longer present. Note the differences in image quality may also impact assessment of left ventricular function estimated left ventricular
function
Last hospitalist admission:
DATE OF ADMISSION: 04/02/2024 - DATE OF DISCHARGE: 04/10/2024
FINAL DIAGNOSES:
1. Sepsis with hypotension and leukocytosis.
2. Extensive pericardial effusion with tamponade.
3. Pleural effusion.
4. Acute systolic heart failure due to pericardial effusion.
5. Acute hepatic fluid congestion.
6. Sacral coccyx stage II pressure area.
7. Type 2 diabetes.
8. Urinary retention.
9. Resolved hyponatremia.
10. Paroxysmal atrial fibrillation.
11. Progressive dementia.
ASSESSMENT & PLAN
Volume expansion complicated with worsening Lenard edema
Wt gained 1.5 kg since 2023
Decompensated ChrHFrEF
Left bundle branch block
Underlying NICM - no previous history of CAD/DE
- elevated proBNP but lower than before
- started on IV Lasix 40 once at ER
- IV Lasix 40 daily
- c/w SKIN DRIER Losartan and half of home dose due to soft BP
- c/w SKIN DRIER Metoprolol XL 50 daily
- MRA is not indicated due to hyponatremia
- To consider SGLT2i as op--
- CBC card consult
Hypervolemic hyponatremia
- IV diuresis
- FR 1000 cc
- may need to relax Na 2 gm restriction
- Trend Na in AM
HX Pericardial effusion ; -s/p pericardiocentesis for 610cc on 04/03/24
-Cytology NEGATIVE for malignancy
- continue colchicine daily
Relative hypotension
Benign HTN
-hold home amlodipine to give room for BP
T2DM
- last Hemoglobin A1c of 6.2 in 04/05
- add ISS low
LBBB HX
Mild/moderate MR
Mild AR
Dementia with slow progressing
HX Sacral/coccyx stage I/II pressure inj -POA
DVT Px: SQH
DNR
IP TLM
[2024-09-07] VITALS (7 sets, daily range): BP systolic 115–149; BP diastolic 43–69
[2024-09-07] MEDS: LASIX 40 MG IV ×2 (00:11→07:56)
--- NOTE | 2024-09-07 01:34 | PTCARENOTE ---
Pt received from ED to [facility]. Pt oriented to room and call yancey.
[2024-09-07 02:47] LABS: Troponin I < 0.012 ng/ml
[2024-09-07 07:29] LABS: Troponin I < 0.012 ng/ml
[2024-09-07] MEDS: TOPROL XL 50 MG PO (07:54)
[2024-09-07] MEDS: PROTONIX 40 MG PO (07:54)
[2024-09-07] MEDS: HEPARIN 5000 UNITS SC ×2 (07:54→20:06)
[2024-09-07] MEDS: CRESTOR 5 MG PO (07:54)
[2024-09-07] MEDS: COLCHICINE 0.6 MG PO (07:54)
[2024-09-07] MEDS: COZAAR 50 MG PO (07:54)
--- NOTE | 2024-09-07 08:11 | CON.CAR ---
Addendum entered and electronically signed by Efraín Albarran MD 09/07/24 13:29:
I saw and examined the patient.
The ADJUNCT TRAINER's note was reviewed and I agree with the note.
Comment: Daughter at bedside did feel she had dyspnea as part of her symptom complex. Pt lives with her 2 sons and not the daughter at bedside now. Daughter at bedside worked her at for many years. Pt seems to be responding to treatment. Will
see if we can adjust meds. Will update echo.
Original Note:
Consultation
Consultation Request
Date/Time Consultation Requested: 09/07/24 0133
Date/Time Consultation Performed: 09/07/2411
Requesting Provider: Dr. Griffith
Performing Provider: Angeli SHERMAN for Dr. Albarran
Reason for Consultation: CHF
Medical History
-
Chief Complaint: LE edema
History of Present Illness:
88 y/o female (patient of Dr. Farooq) with PAF on Eliquis, pericardial effusion s/p pericardiocentesis 03/2024, HFrEF most recent EF 40%, hyponatremia, moderate MR, moderate TR, dementia (per hospitalist note), HTN, HLD. She is here for LE edema
per patient. She noticed it about a week ago. She denies any SOB for me, but per chart there was some SOB as well. She is felt to have CHF exacerbation. She is seen to have hyponatremia with sodium 125. She has been give IV Lasix. She is in no
distress at the time of my assessment. Thinks her edema has improved. Has been urinating with lasix.
Past Medical History
Past Medical History: Arrhythmias, CHF, HTN, Hypercholesterolemia and Valvular Disease
Social History
Tobacco: Non-Smoker
Living: With Family (sons per patient)
Family History
Family History: Reviewed & Not Pertinent
Allergies / Home Medications
Allergy/AdvReac Type Severity Reaction Status Date / Time
Penicillins Allergy Rash Verified 09/06/24 17:00
�Medication �Instructions �Recorded �Confirmed �Type
omega 2-bwo-vdr-fish oil 1,000 mg 1 cap PO BID Supplement 04/02/24 09/06/24 History
(120 mg-180 mg) capsule (Fish Oil)
omeprazole 40 mg capsule,delayed 40 mg PO DAILY Gastrointestinal 04/02/24 09/06/24 History
release Issue
rosuvastatin 5 mg tablet 5 mg PO DAILY High Cholesterol 04/02/24 09/06/24 History
vitamins A,C,G-ijxt-iztpqz 4,296 1 cap PO DAILY Supplement 04/02/24 09/06/24 History
mcg-226 mg-90 mg capsule
(PreserVision AREDS)
colchicine 0.6 mg tablet 0.6 mg PO DAILY #0 tabs 04/10/24 09/06/24 Rx
amlodipine 5 mg tablet 5 mg PO DAILY 09/06/24 09/06/24 History
losartan 50 mg tablet 100 mg PO DAILY 09/06/24 History
metoprolol succinate 25 mg 50 mg PO DAILY 09/06/24 09/06/24 History
tablet,extended release 24 hr
Review of Systems
-
History Source: Patient and Other (chart)
Respiratory: Trouble Breathing (per chart, patient denies)
Musculoskeletal: Edema (BLE edema)
Physical Exam
Vital Signs
Temp Pulse Resp BP Pulse Ox
97.6 F 88 18 147/59 100
09/07/24 02:07 09/07/24 02:07 09/07/24 02:07 09/07/24 02:07 09/07/24 02:07
Lab Results
09/06/24 17:14
09/06/24 17:14
Troponin I < 0.012 ng/ml 09/07/24 06:57
Kqx-V-Dbiwkcginrs Pept 5180 pg/ml 09/06/24 17:14
Physical Exam
General: Well Developed and No Apparent Distress
HEENT: Normocephalic and Anicteric
Respiratory: Clear and Non Labored Respirations
Cardiac: Regular Rhythm
Musculoskeletal: Edema (mild BLE edema)
Skin: Warm and Dry
Neuro: AO x 3
Psych: Calm
Impression / Plan
-
Gjhrk-tj-ysjgiuf HFrEF:
-patient with LE edema
-echo 05/14/24: Estimated ejection fraction 40 %. Moderate mitral regurgitation. Moderate tricuspid regurgitation. Estimated pulmonary artery pressure of 50-55 mmHg.
-can continue IV Lasix, which requires intensive monitoring. Assess AM labs.
-on BB/ARB. Not on MRA due to hyponatremia. Will have CM assess pricing for SGLT2I.
-on Lasix 20 mg daily on OP med rec (current med rec does not appear up to date)
-unknown CM type. Denies any CP. Update echo.
Hyponatremia:
-I put in for labs this AM for reassessment s/p diuresis
PAF:
-stable in SR
-on Eliquis and metoprolol
Hx pericardial effusion s/p pericardiocentesis 03/2024:
-no recurrence on f/u echo 05/2024
-update echo
Data Reviewed
-
EKG: Tracing Personally Visualized and interpreted (SR, LBBB, PAC's- stable)
Radiology: Image Personally Visualized and interpreted (awaiting radiology read)
Medical Tests (Nuc Med, Echo etc): Report Reviewed by me (echo 05/14/24: Estimated ejection fraction 40 %. Moderate mitral regurgitation. Moderate tricuspid regurgitation. Estimated pulmonary artery pressure of 50-55 mmHg.)
Labs: Labs Reviewed by me
[2024-09-07 08:53] LABS: Hematocrit 31.5 % (37.0-47.0); Hemoglobin 10.6 g/dL (12.0-16.0); Mean Corp Hgb Conc. 33.7 g/dL (33.0-37.0); Mean Corpuscular Hgb 28.9 pg (27.0-31.0); Mean Corpuscular Volume 85.8 fL (81.0-99.0); Mean Platelet Volume 9.2 fL (7.4-10.4); Platelet Count 361 10^3/uL (130-400); Red Blood Cell Count 3.67 10^6/uL (4.20-5.40); Red Cell Dist. Width 14.5 % (11.5-14.5); White Blood Cell Count 5.7 10^3/uL (4.8-10.8)
[2024-09-07] MEDS: TYLENOL 650 MG PO (09:03)
[2024-09-07 09:43] LABS: Blood Urea Nitrogen 17 mg/dl (7-17); Calcium 8.7 mg/dl (8.4-10.2); Carbon Dioxide 26 mmol/L (22-30); Chloride 92 mmol/L (98-107); Estimated Creatinine Clearance 59 ml/min; Glucose 87 mg/dl (70-99); Potassium 3.9 mmol/L (3.5-5.1); Sodium 127 mmol/L (135-145); eGFR > 60.00
[2024-09-07 15:04] LABS: Troponin I < 0.012 ng/ml
--- NOTE | 2024-09-07 15:49 | CM ---
Addendum entered by Jina Raymundo 09/07/24 16:20:
Per [facility]- Jardiance 30 day supply $238.03, Farxiga 30 day supply $232.35. Call to patients daughter, Arianna- requesting call from [employer]. Arianna confirms patient PCP Arielle Robertson. Arianna reports she is patients POA, if she is
unable to make decisions, her sister, China, can make decision. Arianna requesting all updates go to her.
Original Note:
CM reviewed chart, patient seen bedside with daughter, initial assessment completed. Per daughter, patient resides in a two story apartment, patient resides on first floor, no steps to enter, sons live in basement apartment. Patient uses a walker
for ambulation, has a caregiver five days a week while patients sons are at work. Patient has been to [facility] in past, reports her caregiver does exercises with her in the home. Patient PCP Arielle Robertson, daughter unsure if PCP has changed or
if this is current. Pharmacy used [facility]. Consult for cost of Jardiance/Farxiga 10 mg daily- will check cost through prescription coverage plan. CM will continue to follow for all discharge planning needs.
Plan; home with family and caregivers when stable.
--- NOTE | 2024-09-07 16:46 | W.PN.HOSP.TC ---
Today's Communication/Plan
-
IV diuresis
Follow-up for hyponatremia
Assessment / Plan
Assessment / Plan
Impression
Presentation with exertional dyspnea.
Acute on chronic CHF reduced EF.
Hyponatremia with likely hypervolemia in the settings of CHF.
Noted to severe MR.
Pulmonary hypertension
Paroxysmal atrial fibrillation
History of pericardial effusion
Status post pericardiocentesis 04/05.
Dementia, likely Alzheimer type
Gout
Plan:
Acute CHF reduced EF.
She presents with exertional shortness of breath and peripheral edema.
She is not hypoxic and does not require supplemental oxygen at rest.
Chest x-ray with clear lung tsang.
Noted elevated pro CHF BNP.
Repeated echocardiogram with LVEF 35%, global hypokinesis, severe left atrial enlargement, moderate to severe mitral regurgitation, pulmonary hypertension with PASP 55�mmHg
Decompensated state is likely due to reduced EF, valvular dysfunction and pulmonary hypertension.
Responded to diuresis with Lasix. Will continue for now monitoring hemodynamics and renal function closely.
Continue losartan, metoprolol
Hyponatremia, likely hypervolemic given above.
Proving with diuresis sodium 125�127
Check urine osmolarity
Check uric acid level
Continue free water restriction to 33 ounces
Monitor BMP with diuresis
Paroxysmal atrial fibrillation
Currently in sinus rhythm.
Not on anticoagulation prior to presentation.
Alzheimer dementia.
Ambulatory dysfunction ambulating with walker.
Physical therapy assessment
Discharge planning
Anticipated Discharge: 24 - 48 hours
Subjective/Interval History
-
Date of Service: September 07, 2024
Objective Data
-
Labs:
Laboratory Results
09/07/24
06:50
WBC 5.7
Hgb 10.6 L
Hct 31.5 L
Plt Count 361
Sodium 127 L
Potassium 3.9
Chloride 92 L
Carbon Dioxide 26
BUN 17
Creatinine 0.5 L
Glucose 87
Calcium 8.7
Vital Signs:
Vital Signs
Temp Pulse Resp BP Pulse Ox
97.3 F 72 18 125/47 99
09/07/24 15:00 09/07/24 15:00 09/07/24 15:00 09/07/24 15:00 09/07/24 15:00
I&O
09/06/24 09/07/24 09/08/24
06:59 06:59 06:59
Output Total 950 / 950 600 / 600
Balance -950 / -950 -600 / -600
Physical Exam
-
General: Well Developed and No Apparent Distress
HEENT: Normocephalic, Atraumatic and Moist Mucous Membranes
Respiratory: Clear to Auscultation
Cardiac: Regular Rhythm and S1/S2; Negative Murmur, Rub or Gallop
GI: Soft, Nontender, Nondistended and Normal Bowel Sounds; Negative Organomegaly
Rectal: Deferred by Provider
Musculoskeletal: No Clubbing, No Cyanosis and No Edema
Skin: Negative Rash
Neuro: Nonfocal/Grossly Intact
[2024-09-07 19:36] LABS: Uric Acid 4.6 mg/dl (2.5-6.2)
--- NOTE | 2024-09-07 20:25 | PTCARENOTE ---
Pt frequently states she needs to use the bathroom and placed on BSC multiple times so far this shift without urinating. Pt bladder scanned and only 165 mLs noted in bladder at this time. Pt last str cathed at 1615.
--- NOTE | 2024-09-07 22:05 | PTCARENOTE ---
Pt continues to frequently insist that she has to urinate. Bladder scan shows 235 mLs in bladder and pt has not been able to void when placed on BSC numerous times. House CERAMIC WORKER made aware and order to place F/C received.
[2024-09-07 22:43] LABS: Osmolality Urine 496 mOsm/kg (300-900)
[2024-09-08] VITALS (8 sets, daily range): BP systolic 93–133; BP diastolic 40–61; PULSE 67; O2SAT 99; BMI 19.6
[2024-09-08 07:50] LABS: Blood Urea Nitrogen 19 mg/dl (7-17); Calcium 8.4 mg/dl (8.4-10.2); Carbon Dioxide 26 mmol/L (22-30); Chloride 93 mmol/L (98-107); Estimated Creatinine Clearance 59 ml/min; Glucose 95 mg/dl (70-99); Potassium 4.3 mmol/L (3.5-5.1); Sodium 125 mmol/L (135-145); eGFR > 60.00
[2024-09-08] MEDS: TYLENOL 650 MG PO (07:58)
[2024-09-08] MEDS: PROTONIX 40 MG PO (07:59)
[2024-09-08] MEDS: COLCHICINE 0.6 MG PO (07:59)
[2024-09-08] MEDS: CRESTOR 5 MG PO (07:59)
[2024-09-08] MEDS: COZAAR 50 MG PO (07:59)
[2024-09-08] MEDS: HEPARIN 5000 UNITS SC ×2 (07:59→20:04)
[2024-09-08] MEDS: TOPROL XL 50 MG PO (07:59)
[2024-09-08] MEDS: LASIX 40 MG IV (08:00)
--- NOTE | 2024-09-08 09:02 | W.PN.CD ---
Today's Communication / Plan
-
transiton to oral diuretic
pateitn with sodium 125 . Management per primary tati. May need to consider samsca
Impression / Plan
-
Olaog-wk-ofwzgfu HFrEF:
-patient with LE edema on admit
-echo 05/14/24: Estimated ejection fraction 40 %. Moderate mitral regurgitation. Moderate tricuspid regurgitation. Estimated pulmonary artery pressure of 50-55 mmHg.
- echo this admit with EF 35% and mod to severe MR
- Output is negative. Can transition to oral diuretic.
- need to monitor hyponatremia closely
-on BB/ARB. Not on MRA due to hyponatremia. Will have CM assess pricing for SGLT2I.
-on Lasix 20 mg daily on OP med rec (current med rec does not appear up to date)
-unknown CM type. Denies any CP. Update echo.
Hyponatremia:
-125
- close monitoring. Management per primary team
PAF:
-stable in SR
-on Eliquis and metoprolol
Hx pericardial effusion s/p pericardiocentesis 03/2024:
-no recurrence on f/u echo 05/2024
-update echo
Physical Exam
Vital Signs/Labs
Vital Signs
Temp Pulse Resp BP Pulse Ox
97.9 F 82 18 121/47 97
09/08/24 07:50 09/08/24 07:50 09/08/24 07:50 09/08/24 07:50 09/08/24 07:50
09/07/24 09/08/24 09/09/24
06:59 06:59 06:59
Actual Weight 56.302 kg
09/07/24 06:50
09/08/24 06:32
09/06/24
17:14
Wmc-X-Olaytljxglz Pept 5180
LAB Results
09/07/24 09/07/2425
02:10 06:57 14:34
Troponin I < 0.012 < 0.012 < 0.012
Physical Exam
Constitutional: No acute distress
Cardiovascular: Rhythm & rate is regular
Respiratory: Wheeze Absent and Rhonchi Absent
GI: Soft and Non tender
Neuro/Psych: Alert and Oriented
Data Reviewed
-
Date of Service: September 08, 2024
Medical Decision Making: Reviewed Test Results
X-Ray/CT/US/MRI/NUC/PET: Report Reviewed by me
Medical Tests (PFT, Pathology etc): Report Reviewed by me
Labs: Labs Reviewed by me
--- NOTE | 2024-09-08 12:25 | W.CON.NEPH ---
Consultation
-
Date/Time Consultation Requested: 09/08/2024 11 AM
Date/Time Consultation Performed: 09/08/2024 12 PM
Requesting Provider: Dr. Love
Performing Provider: Dr. Cheng
Reason for Consultation: Hyponatremia
Medical History
-
Chief Complaint: Edema, shortness of breath
History of Present Illness:
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 She has hypertension on a 2 drug regimen which is well-controlled. She has hyperlipidemia controlled with statin
therapy. About a week prior to admission she began developing worsening lower extremity edema and possibly some shortness of breath as well. She came to the emergency room because of these worsening symptoms. She was found to have a CHF
exacerbation but was also noted to have a sodium level of 125. She was given IV Lasix with good diuresis and improvement of her presenting symptoms. Her sodium level has risen only mildly at 127. We are asked to assist with management of the
hyponatremia. She seems to have mild hyponatremia at baseline.
Past Medical History
Heart failure reduced ejection fraction
Pericardial effusion with pericardiocentesis
Hypertension
Hyperlipidemia
Gout
Reflux
Social History
Tobacco: Non-Smoker
Alcohol: None
Family History
Family History: Not Pertinent
Allergies / Home Medications
Allergy/AdvReac Type Severity Reaction Status Date / Time
Penicillins Allergy Rash Verified 09/06/24 17:00
�Medication �Instructions �Recorded �Confirmed �Type
omega 8-mxd-qwd-fish oil 1,000 mg 1 cap PO BID Supplement 04/02/24 09/06/24 History
(120 mg-180 mg) capsule (Fish Oil)
omeprazole 40 mg capsule,delayed 40 mg PO DAILY Gastrointestinal 04/02/24 09/06/24 History
release Issue
rosuvastatin 5 mg tablet 5 mg PO DAILY High Cholesterol 04/02/24 09/06/24 History
vitamins A,C,T-aapf-nmllci 4,296 1 cap PO DAILY Supplement 04/02/24 09/06/24 History
mcg-226 mg-90 mg capsule
(PreserVision AREDS)
colchicine 0.6 mg tablet 0.6 mg PO DAILY #0 tabs 04/10/24 09/06/24 Rx
amlodipine 5 mg tablet 5 mg PO DAILY Blood Pressure 09/06/24 09/06/24 History
losartan 50 mg tablet 100 mg PO DAILY Blood Pressure 09/06/24 History
metoprolol succinate 25 mg 50 mg PO DAILY Blood Pressure 09/06/24 09/06/24 History
tablet,extended release 24 hr
Review of Systems
-
No chest pain or shortness of breath
All other systems: Negative unless noted
Physical Exam
Vital Signs
Vital Signs
Temp Pulse Resp BP Pulse Ox
97.2 F 70 14 114/43 97
09/08/24 11:40 09/08/24 11:40 09/08/24 11:40 09/08/24 12:19 09/08/24 11:40
Lab Results
WBC 5.7 10^3/uL (4.8-10.8) 09/07/24 06:50
RBC 3.67 10^6/uL (4.20-5.40) L 09/07/24 06:50
Hgb 10.6 g/dL (12.0-16.0) L 09/07/24 06:50
Hct 31.5 % (37.0-47.0) L 09/07/24 06:50
Plt Count 361 10^3/uL (130-400) 09/07/24 06:50
Sodium 125 mmol/L (135-145) L 09/08/24 06:32
Potassium 4.3 mmol/L (3.5-5.1) 09/08/24 06:32
Chloride 93 mmol/L (98-107) L 09/08/24 06:32
Carbon Dioxide 26 mmol/L (22-30) 09/08/24 06:32
BUN 19 mg/dl (7-17) H 09/08/24 06:32
Creatinine 0.5 mg/dL (0.6-1.0) L 09/08/24 06:32
eGFR > 60.00 09/08/24 06:32
Glucose 95 mg/dl (70-99) 09/08/24 06:32
Calcium 8.4 mg/dl (8.4-10.2) 09/08/24 06:32
Kuq-O-Knpojqqmnuy Pept 5180 pg/ml 09/06/24 17:14
Albumin 2.6 g/dl (3.5-5.0) L 09/06/24 17:14
Laboratory Tests
06/17/24 09/06/24 09/07/24
11:21 21:10 22:34
Sodium 134 L
Urine Osmolality 496
Urine Sodium 29 L
Physical Exam
Patient is awake alert oriented and in no distress. Mood and affect were pleasant, insight and judgment were good. Pupils are equal round and reactive to light, extraocular movements are intact, sclera were anicteric. Hearing was reduced, ears and
nose are intact. Oropharynx was clear. Neck was supple with trachea midline and no thyromegaly. Heart was regular rate and rhythm without rubs. Lower extremities without edema. Lungs were clear to auscultation bilaterally and with normal
excursion. Abdomen was soft, nontender, with normal active bowel sounds, and no hepatosplenomegaly. Skin was without rash and with normal turgor.
Data Reviewed
-
Radiology: Image Personally Visualized and interpreted (Chest x-ray 09/06/2024 by my reading shows no acute disease, but cardiomegaly)
Medical Tests (Nuc Med, Echo etc): Image Personally Visualized and interpreted (EKG 09/06/2024 my reading normal sinus rhythm left axis deviation left bundle branch block) and Report Reviewed by me (Echocardiogram 08/30/2024 EF 35% severe MR mild AR)
Labs: Labs Reviewed by me
Old Records: Reviewed
Assessment/Plan
-
Assessment
Heart failure reduced ejection fraction decompensation
Hyponatremia acute
Hypertension
Severe mitral regurgitation
Dementia
gout
Plan
Recommend Lasix 20 mg daily
Samsca 7.5 mg today
Fluid restriction 48 ounces per day
Follow BMP
Discussed with the daughter at bedside
--- NOTE | 2024-09-08 13:39 | W.PN.HOSP.TC ---
Today's Communication/Plan
-
Transition to oral Lasix
Continue free water restriction and liberalize diet with no sodium restriction.
Samsca
Follow BMP
Physical therapy assessment and discharge planning home versus [facility] facility.
Assessment / Plan
Assessment / Plan
Impression
Presentation with exertional dyspnea.
Acute on chronic CHF reduced EF.
Hyponatremia with likely hypervolemia in the settings of CHF.
Noted to severe MR.
Pulmonary hypertension
Paroxysmal atrial fibrillation
History of pericardial effusion
Status post pericardiocentesis 04/05.
Dementia, likely Alzheimer type
Gout
Plan:
Acute CHF reduced EF.
She presents with exertional shortness of breath and peripheral edema.
She is not hypoxic and does not require supplemental oxygen at rest.
Chest x-ray with clear lung tsang.
Noted elevated pro CHF BNP.
Repeated echocardiogram with LVEF 35%, global hypokinesis, severe left atrial enlargement, moderate to severe mitral regurgitation, pulmonary hypertension with PASP 55�mmHg
Decompensated state is likely due to reduced EF, valvular dysfunction and pulmonary hypertension.
Responded to diuresis with Lasix.
Weight plateau at 56 kg and likely close to dry weight.
Transition to oral Lasix
Acute hyponatremia, likely hypervolemic given above.
Urine was not suggestive of high ADH state
Proving with diuresis sodium 125�127
Nephrology input appreciated.
Continue free water restriction.
Continue Lasix.
Samsca to be provided on 09/08
Paroxysmal atrial fibrillation
Currently in sinus rhythm.
Not on anticoagulation prior to presentation.
Alzheimer dementia.
Ambulatory dysfunction ambulating with walker.
Physical therapy assessment
Discharge planning
Anticipated Discharge: 24 - 48 hours
Subjective/Interval History
-
Date of Service: September 08, 2024
Objective Data
-
Labs:
Laboratory Results
09/08/24
06:32
Sodium 125 L
Potassium 4.3
Chloride 93 L
Carbon Dioxide 26
BUN 19 H
Creatinine 0.5 L
Glucose 95
Calcium 8.4
Vital Signs:
Vital Signs
Temp Pulse Resp BP Pulse Ox
97.2 F 70 14 114/43 97
09/08/24 11:40 09/08/24 11:40 09/08/24 11:40 09/08/24 12:19 09/08/24 11:40
I&O
09/07/24 09/08/24 09/09/24
06:59 06:59 06:59
Intake Total 780 / 780
Output Total 950 / 950 1450 / 1450
Balance -950 / -950 -670 / -670
Physical Exam
-
General: Well Developed and No Apparent Distress
HEENT: Normocephalic, Atraumatic and Moist Mucous Membranes
Respiratory: Clear to Auscultation
Cardiac: Regular Rhythm and S1/S2; Negative Murmur, Rub or Gallop
GI: Soft, Nontender, Nondistended and Normal Bowel Sounds; Negative Organomegaly
Rectal: Deferred by Provider
Musculoskeletal: No Clubbing, No Cyanosis and No Edema
Skin: Negative Rash
Neuro: Nonfocal/Grossly Intact
[2024-09-08] MEDS: SAMSCA 7.5 MG PO (13:48)
--- NOTE | 2024-09-08 15:42 | CM ---
CM reviewed chart, placed call to patients daughter, Arianna, to discuss PT recommendations of SNF vs VN. Daughter reports she will speak with patient about rehab, but feels as though patient will want to return home with VN/caregiver services.
Daughter reports patient has had [facility] in past, will send referral. Patient has caregivers M-F 9:30 a.m.- 2:30 p.m. CM will continue to follow for all discharge planning needs.
Plan; home with [facility] referral, caregivers, family support
[2024-09-09 03:49] VITALS: BP 138/54
[2024-09-09 06:00] VITALS: BMI 19.3
[2024-09-09 07:18] VITALS: BP 122/49
[2024-09-09 08:08] LABS: Blood Urea Nitrogen 20 mg/dl (7-17); Calcium 8.7 mg/dl (8.4-10.2); Carbon Dioxide 28 mmol/L (22-30); Chloride 98 mmol/L (98-107); Estimated Creatinine Clearance 57 ml/min; Glucose 94 mg/dl (70-99); Potassium 4.4 mmol/L (3.5-5.1); Sodium 131 mmol/L (135-145); eGFR > 60.00
[2024-09-09] MEDS: HEPARIN 5000 UNITS SC (08:48)
[2024-09-09] MEDS: TOPROL XL 50 MG PO (08:49)
[2024-09-09] MEDS: LASIX 40 MG PO (08:49)
[2024-09-09] MEDS: CRESTOR 5 MG PO (08:49)
[2024-09-09] MEDS: COZAAR 50 MG PO (08:49)
[2024-09-09] MEDS: PROTONIX 40 MG PO (08:49)
[2024-09-09] MEDS: COLCHICINE 0.6 MG PO (08:49)
[2024-09-09] MEDS: TYLENOL 650 MG PO (08:52)
--- NOTE | 2024-09-09 10:00 | W.PN.CD ---
Today's Communication / Plan
-
decreased lasix to 20mg po lasix
start farxiga, recommend renal panel prior to next visit.
follow up with Dr Farooq already planned.
Will sign off
Impression / Plan
-
Ahsik-zw-yjjkleb HFrEF:
-patient with LE edema on admit
-echo 05/14/24: Estimated ejection fraction 40 %. Moderate mitral regurgitation. Moderate tricuspid regurgitation. Estimated pulmonary artery pressure of 50-55 mmHg.
-echo this admit with EF 35% and mod to severe MR
- tolerating lasix and samsca
-will add a farxiga. Given farxiga will lower furosemide to 20mg daily.
-on BB/ARB. Not on MRA due to hyponatremia. Will have CM assess pricing for SGLT2I.
Hyponatremia:
-125-->131 with samsca
- close monitoring. Management per primary team
PAF:
-stable in SR
-on Eliquis and metoprolol
Hx pericardial effusion s/p pericardiocentesis 03/2024:
-no recurrence on repeat echo
Physical Exam
Vital Signs/Labs
Vital Signs
Temp Pulse Resp BP Pulse Ox
97.8 F 76 18 122/49 95
09/09/24 07:18 09/09/24 07:18 09/09/24 07:18 09/09/24 07:18 09/09/24 07:18
09/08/24 09/09/24 09/10/24
06:59 06:59 06:59
Actual Weight 119 lb 9 oz
09/07/24 06:50
09/09/24 07:09
09/06/24
17:14
Vlu-Q-Gmbukaapxzq Pept 5180
LAB Results
09/07/24 09/07/24 09/07/24
02:10 06:57 14:34
Troponin I < 0.012 < 0.012 < 0.012
Physical Exam
Constitutional: No acute distress
Cardiovascular: Rhythm & rate is regular, Pedal edema is absent, JVD pressure is normal, Systolic murmur absent and Diastolic murmur absent
Respiratory: Respiratory effort normal, Lungs clear to auscul., Wheeze Absent, Crackles Absent and Rhonchi Absent
Neuro/Psych: AO x 3
Data Reviewed
-
Date of Service: September 09, 2024
EKG: Other (tele sinus with pvcs)
[2024-09-09 11:39] VITALS: BP 117/51
--- NOTE | 2024-09-09 12:50 | W.PN.NEPH.PH ---
Today's Communication / Plan
-
Maintain Lasix
Fluid restriction adjusted up to 1200 cc/day
Follow BMP
Assessment/Plan
-
Assessment
Heart failure reduced ejection fraction decompensation
Hyponatremia acute
Hypertension
Severe mitral regurgitation
Dementia
gout
Plan
Maintain Lasix 20 mg daily in setting of CHF and hyponatremia
Samsca 7.5 mg on 09/08/2024: Sodium now up to 131
Fluid restriction 48 ounces per day to continue
Blood pressure stable on current antihypertensives
Follow BMP
-
-
Date of Service: September 09, 2024
CC / HPI / ROS
-
Chief Complaint:
Hyponatremia
History of Present Illness:
Serum sodium up to 131 on lasix 20mg daily and samsca 7.5mg given on 09/08 and FR
Hemodynamically stable on current antihypertensives
Review of Systems:
Grossly nonoliguric in excess of 2500 cc
No fevers
Resting comfortable
Labs
-
Labs:
WBC 5.7 10^3/uL (4.8-10.8) 09/07/24 06:50
RBC 3.67 10^6/uL (4.20-5.40) L 09/07/24 06:50
Hgb 10.6 g/dL (12.0-16.0) L 09/07/24 06:50
Hct 31.5 % (37.0-47.0) L 09/07/24 06:50
Plt Count 361 10^3/uL (130-400) 09/07/24 06:50
Sodium 131 mmol/L (135-145) L 09/09/24 07:09
Potassium 4.4 mmol/L (3.5-5.1) 09/09/24 07:09
Chloride 98 mmol/L (98-107) 09/09/24 07:09
Carbon Dioxide 28 mmol/L (22-30) 09/09/24 07:09
BUN 20 mg/dl (7-17) H 09/09/24 07:09
Creatinine 0.6 mg/dL (0.6-1.0) 09/09/24 07:09
eGFR > 60.00 09/09/24 07:09
Glucose 94 mg/dl (70-99) 09/09/24 07:09
Calcium 8.7 mg/dl (8.4-10.2) 09/09/24 07:09
Drn-T-Tfkainvzulr Pept 5180 pg/ml 09/06/24 17:14
Albumin 2.6 g/dl (3.5-5.0) L 09/06/24 17:14
Physical Exam
-
Vital Signs:
Vital Signs
Temp Pulse Resp BP Pulse Ox
98.0 F 69 18 117/51 97
09/09/24 11:39 09/09/24 11:39 09/09/24 11:39 09/09/24 11:39 09/09/24 11:39
Cardiovascular:: Regular rate and rhythm
Respiratory:: Bilateral: CTA
Lung Excursion:: Normal
Abdomen:: Nontender and Soft
Bowel Sounds:: Normal
Extremity Edema:: None: Bilateral:
Rasheed Catheter: Yes
--- NOTE | 2024-09-09 13:13 | W.DS.TRANS ---
DC Summary - It Administrator
-
Discharge Instructions:
Sleep Apnea Risk Intermediate
Discharge Diagnosis/Procedures CHF exacerbation
Hyponytremia
Diet Restrict fluids to 48 oz
Blood Work Renal profile 5-6 days (prior to visit with
[facility]) - slip sent electronically to
[facility]
Instructions: *CBC Heart Failure Instructions
Stand-Alone Forms:
Changes to Home Medications: Yes
Discharge Medications:
DC Medications w/original date entered in [employer]
omega 0-ero-zuj-fish oil 1,000 mg (120 mg-180 mg) capsule (Fish Oil) 1 cap PO BID Supplement 04/02/24
omeprazole 40 mg capsule,delayed release 40 mg PO DAILY Gastrointestinal Issue 04/02/24
rosuvastatin 5 mg tablet 5 mg PO DAILY High Cholesterol 04/02/24
vitamins A,C,E-wgka-qfreqt 4,296 mcg-226 mg-90 mg capsule (PreserVision AREDS) 1 cap PO DAILY Supplement 04/02/24
colchicine 0.6 mg tablet 0.6 mg PO DAILY #0 tabs 04/10/24
metoprolol succinate 25 mg tablet,extended release 24 hr 50 mg PO DAILY Blood Pressure 09/06/24
dapagliflozin propanediol 10 mg tablet 10 mg PO DAILY #30 tabs 09/09/24
furosemide 20 mg tablet 20 mg PO DAILY #30 tabs 09/09/24
losartan 50 mg tablet 50 mg PO DAILY Blood Pressure #0 tabs 09/09/24
Home Medication Changes
Amlodipine stopped
Farxiga and Lasix initiated
Pending Results: No
--- NOTE | 2024-09-09 13:44 | CM ---
Addendum entered by Wendy Dill 09/09/24 16:05:
Patient will d/c w/ deny. Confirmed w/ [facility], a nurse will see patient tomorrow in the home
Original Note:
Patient is stable for d/c. Patient current w/ [facility] and has caregiver support in the home
Spoke w/ patient's daughter, Arianna, making aware of d/c. Arianna confirmed plan is for patient to return home instead of SNF placement
Arianna will transport patient home, she shared she can come get patient at 3:30
IMM verbally reviewed, Arianna declined copy, copy on chart
Updated [facility] on d/c to arrange resumption of care
Plan: Home. Resume of care naomy/ [facility] and caregiver support
[2024-09-09 15:40] VITALS: BP 104/46
== END 2024-09-09 16:33 | disposition home health service (06) | DRG 291 ==
LOC: 4 WEST ACU 23:32
PROVIDERS: Nurse Practitioner; Student in an Organized Health Care Education/Training Program; ADMITTING PHYSICIAN Internal Medicine; ATTENDING PHYSICIAN Internal Medicine; EMERGENCY PHYSICIAN Emergency Medicine; FAMILY PHYSICIAN Physician Assistant; OTHER PHYSICIAN Internal Medicine Cardiovascular Disease; OTHER PHYSICIAN Specialist
DX: I11.0 Hypertensive heart disease with heart failure (principal); I50.23 Acute on chronic systolic (congestive) heart failure; E87.1 Hypo-osmolality and hyponatremia; I31.39 Other pericardial effusion (noninflammatory); I31.4 Cardiac tamponade; I42.8 Other cardiomyopathies; I95.9 Hypotension, unspecified; E11.9 Type 2 diabetes mellitus without complications; I48.0 Paroxysmal atrial fibrillation; Z66 Do not resuscitate; I34.0 Nonrheumatic mitral (valve) insufficiency; M10.9 Gout, unspecified; I27.20 Pulmonary hypertension, unspecified; G30.9 Alzheimer's disease, unspecified; F02.80 Dementia in other diseases classified elsewhere, unspecified severity, without behavioral disturbance, psychotic disturbance, mood disturbance, and anxiety; Z79.01 Long term (current) use of anticoagulants; Z79.899 Other long term (current) drug therapy
CPT/HCPCS: 93308; 71046; 80048; 80053; 81003; 83880; 83935; 84300; 84484; 84550; 85025; 85027; 93005; 93321; 93325; 96374; 97162; 99285

== ENCOUNTER → 2024-09-15 10:48 | Outpatient (REF) | payer MEDICARE, OTHER, SELFPAY ==
[2024-09-15 15:49] LABS: % Basophils 0.2 % (0-2); % Eosinophils 3.2 % (0-6); % Immature Granulocytes 0.2 % (0-0.5); % Lymphocytes 36.5 % (20.5-51.1); % Monocytes 2.9 % (1.7-9.3); Absolute Eosinophils 0.1 10^3/uL (0-0.7); Absolute Lymphocytes 1.5 10^3/uL (1.2-3.4); Absolute Monocytes 0.1 10^3/uL (0.1-0.6); Absolute Neutrophils 2.3 10^3/uL (1.4-6.5); Hematocrit 31.1 % (37.0-47.0); Hemoglobin 10.3 g/dL (12.0-16.0); Mean Corp Hgb Conc. 33.1 g/dL (33.0-37.0); Mean Corpuscular Hgb 28.9 pg (27.0-31.0); Mean Corpuscular Volume 87.4 fL (81.0-99.0); Mean Platelet Volume 9.7 fL (7.4-10.4); Nucleated Red Blood Cells % 0 %; Platelet Count 330 10^3/uL (130-400); Red Blood Cell Count 3.56 10^6/uL (4.20-5.40); White Blood Cell Count 4.1 10^3/uL (4.8-10.8)
[2024-09-15 15:57] LABS: ALT (SGPT) 15 U/L (0-35); AST (SGOT) 18 U/L (14-36); Albumin 2.8 g/dl (3.5-5.0); Alkaline Phosphatase 80 U/L (38-126); Blood Urea Nitrogen 22 mg/dl (7-17); Calcium 8.8 mg/dl (8.4-10.2); Carbon Dioxide 26 mmol/L (22-30); Chloride 95 mmol/L (98-107); Glucose 96 mg/dl (70-99); Potassium 4.3 mmol/L (3.5-5.1); Sodium 129 mmol/L (135-145); Total Bilirubin 0.5 mg/dl (0.2-1.3); Total Protein 5.3 g/dl (6.3-8.2); eGFR > 60.00
== END ==
LOC: HWLAB 10:48
PROVIDERS: ATTENDING PHYSICIAN Internal Medicine Cardiovascular Disease; FAMILY PHYSICIAN Physician Assistant
DX: E77.8 Other disorders of glycoprotein metabolism (principal); I50.9 Heart failure, unspecified
CPT/HCPCS: 36415; 80053; 85025

== ENCOUNTER → 2024-09-24 10:30 | Outpatient (REF) | payer MEDICARE, OTHER, SELFPAY ==
[2024-09-24 12:46] LABS: Blood Urea Nitrogen 17 mg/dl (7-17); Calcium 8.6 mg/dl (8.4-10.2); Carbon Dioxide 25 mmol/L (22-30); Chloride 97 mmol/L (98-107); Glucose 92 mg/dl (70-99); Potassium 4.3 mmol/L (3.5-5.1); Sodium 127 mmol/L (135-145); eGFR > 60.00
== END ==
LOC: HWLAB 10:30
PROVIDERS: ATTENDING PHYSICIAN Internal Medicine Cardiovascular Disease; FAMILY PHYSICIAN Physician Assistant
DX: E87.1 Hypo-osmolality and hyponatremia (principal)
CPT/HCPCS: 36415; 80048

== ENCOUNTER 2024-09-25 17:03 | Inpatient (IN) | payer MEDICARE, OTHER, SELFPAY ==
[2024-09-25] VITALS (12 sets, daily range): BP systolic 103–137; BP diastolic 44–70
[2024-09-25 11:10] LABS: % Basophils 0.2 % (0-2); % Immature Granulocytes 0.2 % (0-0.5); % Lymphocytes 18.4 % (20.5-51.1); % Monocytes 4.1 % (1.7-9.3); % Neutrophils 74.1 % (42.2-75.2); Absolute Eosinophils 0.1 10^3/uL (0-0.7); Absolute Lymphocytes 0.8 10^3/uL (1.2-3.4); Absolute Monocytes 0.2 10^3/uL (0.1-0.6); Absolute Neutrophils 3.3 10^3/uL (1.4-6.5); Hematocrit 26.8 % (37.0-47.0); Hemoglobin 9.1 g/dL (12.0-16.0); Mean Corpuscular Hgb 29.1 pg (27.0-31.0); Mean Corpuscular Volume 85.6 fL (81.0-99.0); Mean Platelet Volume 8.9 fL (7.4-10.4); Nucleated Red Blood Cells % 0 %; Platelet Count 271 10^3/uL (130-400); Red Blood Cell Count 3.13 10^6/uL (4.20-5.40); Red Cell Dist. Width 14.2 % (11.5-14.5); White Blood Cell Count 4.4 10^3/uL (4.8-10.8)
--- NOTE | 2024-09-25 11:32 | ED.GENMED ---
History of Present Illness
General
Chief Complaint: Fall
Source: patient, spouse and family
Exam Limitations: none
Time Seen by Provider: 09/25/24 10:40
Nursing documentation reviewed up to this point in time: agreed with
History of Present Illness
History of Present Illness:
88-year-old female past medical history of previous A-fib, hypertension hyperlipidemia, diabetes, kidney disease presenting to the emergency department today with concerns of leg weakness and a fall last night which was from the toilet denies
significant injury other than she may have hit her head no ongoing pain difficulty getting up was helped up by the son slept on the couch. Ongoing leg weakness today. Denies any specific chest pain shortness of breath nausea vomiting numbness
weakness no neck pain
Past History
Past History
ED Past Medical History: Arrthythmia, CHF and HTN
ED Past Surgical History: Other
Social History
Tobacco: Non-smoker
Alcohol: None
Drug: None
Personal: Other
Living: with family
Employment: Other
Family History
Family History: Other
Review of Systems
Review of Systems
Allergies reviewed?: Yes
All Other Systems: ROS reviewed and negative except as documented in HPI and ROS
Phy Exam
Physical Exam
Physical Exam:
GENERAL: Alert , in no apparent distress
EYE: pupils equal and reactive
NECK: Supple, no significant adenopathy.
ENT: o/p clr, mmm.
CARDIAC: Regular rate and rhythm .
LUNGS: Clear breath sounds bilaterally, no acute respiratory distress, no wheezes/rales/rhonchi
ABDOMEN: Soft, without focal tenderness, no r/g, no cvat
NEUROLOGICAL: Alert and oriented, no focal neuro deficits
SKIN: Warm and dry, skin intact.
MUSCULOSKELETAL: No edema, well perfused.
PSYCH: Normal and appropriate interaction.
Course
Orders/Labs/Results
Orders:
Orders
09/25/24 10:[address] [CT Head W/o Iv Contrast] Urgent
Comment:
Reason For Exam: fall on thinners
09/25/24 10:48
EKG [Electrocardiogram (*1)] Urgent
Reason for Study: Fatigue / Weakness
CT Cervical Spine W/o Iv Contr Urgent
Comment:
Reason For Exam: neck pain after fall
EKG- Treatment ONCE
09/25/24 10:54
CBC/With Diff [Complete Blood Count/With Diff] Urgent
CMP [Comprehensive Metabolic Panel] Urgent
Creatine Phosphokinase Urgent
Magnesium Urgent
TSH Reflex To Free T4 Urgent
09/25/24 13:02
Urinalysis Reflex To Culture Urgent
Date Specimen was Collected: 09/25/24
Time Specimen was Collected: 13:01
Urine Microscopic Reflex Cult Urgent
Urine Culture Urgent
GIO Source: U
Specimen Description:
Date Specimen was Collected: 09/25/24
Time Specimen was Collected: 13:01
09/25/24 13:39
Case Management Consult ONCE
Case Management Consult: Discharge Planning
Pt Eval And Treat Urgent
Activity Level: Ambulate
09/25/24 14:09
Chest [CR Chest - 2 Views ] Urgent
Comment:
Reason For Exam: cough
09/25/24 15:47
CefTRIAXone [Rocephin] 2,000 mg IV NOW STA
09/25/24 15:48
0.9% Sodium Chloride 500 ml [Nss] 500 ml IV BOLUS
09/25/24 15:55
Azithromycin 500 mg/250 ml [Zithromax Infusion] 500 mg in 250 ml IV NOW
Abnormal Lab Results
09/25/24 09/25/24
10:54 13:02
WBC 4.4 L 10^3/uL
(4.8-10.8)
RBC 3.13 L 10^6/uL
(4.20-5.40)
Hgb 9.1 L g/dL
(12.0-16.0)
Hct 26.8 L %
(37.0-47.0)
Absolute Lymphs (auto) 0.8 L 10^3/uL
(1.2-3.4)
Lymphocytes % 18.4 L %
(20.5-51.1)
Sodium 129 L mmol/L
(135-145)
BUN 20 H mg/dl
(7-17)
Glucose 150 H mg/dl
(70-99)
Creatine Kinase < 20 L U/L
(30-135)
Total Protein 4.9 L g/dl
(6.3-8.2)
Albumin 2.5 L g/dl
(3.5-5.0)
Ur Occult Blood Reflex 1+ A
(Negative)
Leukocyte Esterase Rfl 3+ A
(Negative)
Urine RBC 7-10 A /HPF
(0-2)
Urine WBC (Reflex) 26-30 A /HPF
(0-5)
Urine Bacteria (Reflex) Many A
(Negative)
Urine Albumin (Reflex) 2+ A
(Neg - Trace)
09/25/24 10:54
09/25/24 10:54
Vital Signs
Initial and Last Documented VS:
Initial Vital Signs
Temp Pulse Resp BP Pulse Ox
97.5 F 81 18 108/61 92
09/25/24 10:17 09/25/24 10:17 09/25/24 10:17 09/25/24 10:17 09/25/24 10:17
Last Documented Vital Signs
Temp Pulse Resp BP Pulse Ox
97.5 F 81 18 122/50 94
09/25/24 10:17 09/25/24 10:17 09/25/24 10:17 09/25/24 15:00 09/25/24 13:53
MDM/Problems Addressed
MDM/Problems Addressed:
88-year-old female presenting after a fall last night. Claims that her legs felt weak. Does have some weakness to her legs chronically. Slightly weaker than usual denies any chest pain shortness of breath or acute symptoms otherwise. Here
hemoglobin 9.1 slightly lower than baseline no significant white count sodium 129 BUN to creatinine ratio was elevated potentially representing some degree of dehydration. Urinalysis potentially consistent with UTI. Concerning her concerns of
significant difficulty with ambulation plan to admit for IV antibiotics and fluid for monitoring overnight and reassessment. Additionally patient had a chest x-ray that showed a right sided lower lobe pneumonia. Azithromycin was added.
*Critical Care Note
Total Time (30-74mins, 75-104mins- exclusive of procedures): Not Applicable
ED Attending Note
-
Portions of this chart may have been created with voice recognition software.� Occasional wrong word or��sound alike� substitutions may have occurred due to the inherent limitations of voice recognition software.
Discharge Plan
Departure
Patient Disposition: Admit
Date of Disposition: 09/25/24
Time of Disposition: 16:02
Admit to: Med/Surg
Admit to doctor: Cintia
Presentation/result/management discussed w/ accepting MD/DO: Hospitalist
Patient with high blood pressure during this ER visit?: No
Condition: Good
Covid-19: Not Applicable
Discharge Problem:
Acute UTI, Pneumonia, Weakness
Prescriptions:
No Action
omeprazole 40 mg Capsule,Delayed Release(Dr/Ec)
40 mg PO DAILY
rosuvastatin 5 mg Tablet
5 mg PO DAILY
PreserVision AREDS 4,296 mcg-226 mg-90 mg Capsule
1 cap PO DAILY
omega 0-asa-hpe-fish oil [Fish Oil] 1,000 (120-180) mg Capsule
1 cap PO BID
colchicine 0.6 mg Tablet
0.6 mg PO DAILY Qty: 0 0RF
metoprolol succinate 25 mg tablet extended release 24 hr
50 mg PO DAILY
furosemide 20 mg Tablet
20 mg PO DAILY Qty: 30 0RF
dapagliflozin propanediol 10 mg Tablet
10 mg PO DAILY Qty: 30 0RF
losartan 50 mg tablet
50 mg PO DAILY Qty: 0 0RF
Referrals:
Arielle Robertson PA-C [Family Provider] -
Interventions
Interventions:
*Risk Screen - Suicide Last Done: 09/25/24 10:17
*General Assessment Last Done: 09/25/24 10:17
*Neglect/Abuse Screening Last Done: 09/25/24 10:17
ED-Musculoskeletal Assessment Last Done: 09/25/24 11:17
ED- Neurological Assessment Last Done: 09/25/24 11:17
ED-Skin Assessment Last Done: 09/25/24 11:17
Discharge Date and Time
Print Language: MACEDONIAN
[2024-09-25 12:00] LABS: TSH Reflex To Free T4 1.51 uIU/ml (0.47-4.68)
[2024-09-25 12:31] LABS: ALT (SGPT) 14 U/L (0-35); AST (SGOT) 17 U/L (14-36); Albumin 2.5 g/dl (3.5-5.0); Alkaline Phosphatase 95 U/L (38-126); Blood Urea Nitrogen 20 mg/dl (7-17); Calcium 8.5 mg/dl (8.4-10.2); Carbon Dioxide 24 mmol/L (22-30); Chloride 101 mmol/L (98-107); Creatine Phosphokinase < 20 U/L (30-135); Glucose 150 mg/dl (70-99); Magnesium 1.7 mg/dl (1.6-2.3); Potassium 3.5 mmol/L (3.5-5.1); Sodium 129 mmol/L (135-145); Total Bilirubin 0.5 mg/dl (0.2-1.3); Total Protein 4.9 g/dl (6.3-8.2); eGFR > 60.00
--- NOTE | 2024-09-25 13:01 | EDRN ---
Patient ambulated into the restroom with assistance and back in bed resting comfortably with family at bedside
[2024-09-25 13:16] LABS: Urine Albumin 2+ (Neg - Trace); Urine Bilirubin Negative (Negative); Urine Character Cloudy (Clear); Urine Color Yellow; Urine Glucose Negative (Negative); Urine Ketone Negative (Negative); Urine Leukocyte 3+ (Negative); Urine Nitrite Negative (Negative); Urine Occult Blood 1+ (Negative); Urine Urobilinogen 1+ (Neg - 1+)
--- NOTE | 2024-09-25 14:05 | EDRN ---
Pt at bedside doing an assessment
[2024-09-25 14:06] LABS: Urine Squamous Cell 21-25 /LPF (Few); Urine Urothelial Cell 0-2 /LPF (FEW)
--- NOTE | 2024-09-25 14:06 | EDRN ---
Patient attempted to swallow water, she had asked for some, she seemed to choke on it, informed patient and family no more water at this time, informed Ed, PA taking care of patient.
[2024-09-25 14:07] LABS: Urine Amorphous Seen
[2024-09-25 14:08] LABS: Urine Bacteria Many (Negative); Urine White Cell 26-30 /HPF (0-5)
--- NOTE | 2024-09-25 14:27 | EDRN ---
Case management at bedside seeing and assessing patient
--- NOTE | 2024-09-25 15:40 | CM ---
CM reviewed chart, reviewed with nurse- consult received for discharge planning. Patient recognized from previous admissions. Patient seen bedside with two daughters and son. Patient resides with her two sons in a two story apartment, patient
resides on first floor, no steps to enter. Patient has a RW and WC at home, family reports patient has fallen twice this week. Patient PCP Arielle Robertson, pharmacy [facility]. Patient current with [facility], has caregivers M-F 9:30-2:30 p.m. CM
discussed PT recommendation of home health- will send [facility]PER to [facility] . CM discussed increasing caregivers at home versus looking into facilities for patient to transition into if they feel patient is unable to remain in home. CM will continue to
follow for all discharge planning needs.
Plan; home with family, caregivers ([facility]), [facility]
--- NOTE | 2024-09-25 16:09 | HPS.HSE ---
Family Physician
-
Family Physician: Arielle Robertson
Chief Complaint
-
Weakness
History of Present Illness
Patient is a 88 y/o female past medical history of Chronic HFrEF, paroxysmal atrial fibrillation, chronic hyponatremia, and dementia who presents with weakness. Patient reports she fell last night while in the bathroom. Her son helped her get up
and she slept on the cough. Patient complained of continuing weakness today prompting family to bring her to the emergency department for evaluation. Family notes chronic cough. Family notes she did have some lower extremity edema earlier in the
week but seems improved at the present time.
Medical History
Past Medical History
Past Medical History: Reports Other
Additional Past Medical History:
Chronic HFrEF
Pericardial Effusion
Paroxysmal Atrial Fibrillation
Essential Hypertension
Hyperlipidemia
Chronic Hyponatremia
Alzheimer Dementia
Chronic Ambulatory Dysfunction
Past Surgical History: Reports Other
Additional Past Surgical History:
Back Surgery
Pericardiocentesis
Social History
Tobacco: Non-smoker
Alcohol: Occasional
Drug: None
Personal:
Living: With Family
Employment: Retired
Family History
Family History: Not pertinent
Allergies / Home Medications
Allergies reflects when Allergies were last updated in [email or web address].
Home Medications with original date entered in [email or web address]
Allergy/Medication List:
Allergies
Allergy/AdvReac Type Severity Reaction Status Date / Time
Penicillins Allergy Rash Verified 09/25/24 10:17
Home Medications
omega 9-xyw-afz-fish oil 1,000 mg (120 mg-180 mg) capsule (Fish Oil) 1 cap PO BID Supplement 04/02/24
omeprazole 40 mg capsule,delayed release 40 mg PO DAILY Gastrointestinal Issue 04/02/24
rosuvastatin 5 mg tablet 5 mg PO DAILY High Cholesterol 04/02/24
vitamins A,C,I-zmwm-pyhuzj 4,296 mcg-226 mg-90 mg capsule (PreserVision AREDS) 1 cap PO BID Supplement 04/02/24
colchicine 0.6 mg tablet 0.6 mg PO DAILY #0 tabs 04/10/24
metoprolol succinate 25 mg tablet,extended release 24 hr 25 mg PO DAILY Blood Pressure 09/06/24
furosemide 20 mg tablet 20 mg PO DAILY #30 tabs 09/09/24
losartan 50 mg tablet 50 mg PO DAILY Blood Pressure #0 tabs 09/09/24
acetaminophen 325 mg tablet (Tylenol) 650 mg PO Q6HPRN PRN mild pain 09/25/24
amlodipine 5 mg tablet (Norvasc) 5 mg PO DAILY 09/25/24
apixaban 2.5 mg tablet (Eliquis) 2.5 mg PO BID 09/25/24
polyethylene glycol 3350 17 gram oral powder packet (Miralax) 8.5 g PO Q48H 09/25/24
Review of Systems
-
Unable to obtain full review of systems at this time due to: Dementia
Physical Exam
Vital Signs
Vital Signs
Temp Pulse Resp BP Pulse Ox
97.5 F 81 18 122/50 94
09/25/24 10:17 09/25/24 10:17 09/25/24 10:17 09/25/24 15:00 09/25/24 13:53
Physical Exam
General: Well Developed and Well Nourished
HEENT: NormoCephalic, Anicteric, Moist mucous membranes and Atraumatic
Respiratory: Rales (Diffuse) and Non Labored Respirations
Cardiac: S1/S2 and Regular Rhythm; No Murmur
GI: Soft, Non Tender, Non Distended and Normal Bowel Sounds
Rectal: Deferred by Provider
Musculoskeletal: No Clubbing, No Cyanosis and No Edema
Skin: Warm and Dry; No Rash
Neuro: Awake, Alert and No Motor Deficits
Psych: Calm
Laboratory Results
-
09/25/24 10:54
09/25/24 10:54
Laboratory Results
Total Bilirubin 0.5 mg/dl (0.2-1.3) 09/25/24 10:54
AST 17 U/L (14-36) 09/25/24 10:54
ALT 14 U/L (0-35) 09/25/24 10:54
Alkaline Phosphatase 95 U/L (38-126) 09/25/24 10:54
Data Reviewed
-
Lab Data: Labs Reviewed by me
Old Records: Reviewed
Impression/Plan
-
Acute on chronic HFrEF
-Echo August 2024: Moderately reduced left ventricular systolic function with EF 35%. Moderate to severe mitral regurgitation
-Consult Cardiology
-Continue Lasix 40mg IV Daily
-Monitor Is&Os and Daily Weight
Abnormal Urinalysis, possibly Urinary Tract Infection
-Continue ceftriaxone
-Await urine culture
Chronic Ambulatory Dysfunction with Recent Fall
-Consult PT/OT
Chronic Hyponatremia
-Continue fluid restriction
-Monitor sodium level with diuretics
Paroxysmal Atrial Fibrillation
-Continue Eliquis for anticoagulation
-Continue metoprolol for rate control
Essential Hypertension
-Continue amlodipine, losartan
Hyperlipidemia
-Continue Crestor
GERD
-Continue Protonix
Hx Pericardial Effusion s/p Pericardiocentesis
DVT proph: Eliquis
Code Status: DNR
[2024-09-25] MEDS: LASIX 40 MG IV (16:50)
--- NOTE | 2024-09-25 16:58 | W.PN.UPDATE ---
Update Note
Progress Note Update
This is an addendum to the H&P written by Chika Fagan on 09/25/2024.� Patient seen and examined independently with PA.
88-year-old female past medical history of HFrEF, moderate to severe mitral regurgitation, paroxysmal atrial fibrillation, pericardial effusion status post pericardiocentesis in March 2024, dementia, chronic ambulatory dysfunction, hyponatremia,
presenting with leg weakness and fall last night.
Vital signs show mild hypoxemia with O2 sat of 92 to 94%.
Labs show leukopenia with white cell count of 4.4, stable anemia, chronic hyponatremia with sodium 129.
Chest x-ray shows interstitial pulmonary opacities and small bilateral pleural effusions favored to be pulm edema less likely interstitial pneumonia.� CT head and cervical spine shows no acute abnormality.
Urinalysis showing cloudy urine, 26-30 WBC, +3 leukocyte esterase.
Presentation consistent with acute CHF exacerbation rather than PNA, possible UTI although difficult to tell from symptoms because of chronic�dementia.
40 IV Lasix daily.� Cardiology consulted.� Ceftriaxone.� Await urine culture.
--- NOTE | 2024-09-25 17:00 | CON.CAR ---
Addendum entered and electronically signed by Aamir Ruiz MD 09/28/24 08:22:
I saw and examined the patient. THis is a late entry, patient was seen and examined on 09/25/24 ~5:30 pm
The MATTRESS STRIPPER's note was reviewed and I agree with the note.
Comment: 88-year-old female (known to Dr. Farooq, her primary regional coordinator), with paroxysmal atrial fibrillation (on Eliquis), pericardial effusion s/p pericardiocentesis (03/2024), HFrEF (35%), hyponatremia, moderate MR, moderate TR, LBBB,
dementia, HTN, & HLD p/w falls. We are asked to c/s for CHF. She has been eating more salt as patricia was concerned about low sodium levels. SHe is without complaint but is a poor historian. On exam she is awake and alert. She has bibasilar rales
1/2 up, rrr, m/r/g. No le edema.She has CHF exacerbation, will need IV diuresis with intensive monitoring. Will cautiously continue Eliquis given her falls and h/o of PAF.
Original Note:
Consultation
Consultation Request
Date/Time Consultation Requested: 09/25/2024 16:45
Date/Time Consultation Performed: 09/25/2024 17:00
Requesting Provider: Chika Estes PA-C
Performing Provider: LANE Wood for Dr. Ruiz
Reason for Consultation: Acute on chronic HFrEF
Medical History
-
Chief Complaint: LE edema
History of Present Illness:
Ladi Peña is an 88-year-old female (known to Dr. Farooq, her primary regional coordinator), with paroxysmal atrial fibrillation (on Eliquis), pericardial effusion s/p pericardiocentesis (03/2024), HFrEF (35%), hyponatremia, moderate MR, moderate TR,
LBBB, dementia, HTN, & HLD who presented to the emergency department with a chief complaint of falls. She had an unwitnessed fall and then a witnessed fall today. She has an elevated proBNP and fatigue. She had an abnormal UA. Cardiology was
consulted for acute on chronic HFrEF.
She had an unwitnessed fall on morning. She fell again today. She was found on the floor by her son.
Past Medical History
Past Medical History: Arrhythmias (Paroxysmal atrial fibrillation [on apixaban]), CHF (HFrEF), HTN, Hypercholesterolemia, Valvular Disease (Moderate MR, moderate TR) and Other (Chronic hyponatremia, LBBB)
Past Surgical History: Orthopedic
Social History
Tobacco: Non-Smoker
Living: With Family (sons per patient)
Family History
Family History: Reviewed & Not Pertinent
Allergies / Home Medications
Allergy/AdvReac Type Severity Reaction Status Date / Time
Penicillins Allergy Rash Verified 09/25/24 10:17
�Medication �Instructions �Recorded �Confirmed �Type
omega 8-scz-ccw-fish oil 1,000 mg 1 cap PO BID Supplement 04/02/24 09/25/24 History
(120 mg-180 mg) capsule (Fish Oil)
omeprazole 40 mg capsule,delayed 40 mg PO DAILY Gastrointestinal 04/02/24 09/25/24 History
release Issue
rosuvastatin 5 mg tablet 5 mg PO DAILY High Cholesterol 04/02/24 09/25/24 History
vitamins A,C,B-shol-khwern 4,296 1 cap PO BID Supplement 04/02/24 09/25/24 History
mcg-226 mg-90 mg capsule
(PreserVision AREDS)
colchicine 0.6 mg tablet 0.6 mg PO DAILY #0 tabs 04/10/24 09/25/24 Rx
metoprolol succinate 25 mg 25 mg PO DAILY Blood Pressure 09/06/24 09/25/24 History
tablet,extended release 24 hr
furosemide 20 mg tablet 20 mg PO DAILY #30 tabs 09/09/24 09/25/24 Rx
losartan 50 mg tablet 50 mg PO DAILY Blood Pressure #0 09/09/24 09/25/24 Rx
tabs
acetaminophen 325 mg tablet 650 mg PO Q6HPRN PRN mild pain 09/25/24 09/25/24 History
(Tylenol)
amlodipine 5 mg tablet (Norvasc) 5 mg PO DAILY 09/25/24 09/25/24 History
apixaban 2.5 mg tablet (Eliquis) 2.5 mg PO BID 09/25/24 09/25/24 History
polyethylene glycol 3350 17 gram 8.5 g PO Q48H 09/25/24 09/25/24 History
oral powder packet (Miralax)
Review of Systems
-
History Source: Patient
All other systems: Negative unless noted
Constitutional: Fatigue
EENT: No Symptoms
Respiratory: Trouble Breathing
Cardiac: No Symptoms
Abdomen/GI: No Symptoms
: No Symptoms
Musculoskeletal: No Symptoms
Skin: No Symptoms
Neurological: No Symptoms
Endocrine: No Symptoms
Hematologic/Lymphatic: No Symptoms
Physical Exam
Vital Signs
Temp Pulse Resp BP Pulse Ox
97.5 F 82 18 112/51 94
09/25/24 10:17 09/25/24 16:50 09/25/24 10:17 09/25/24 16:50 09/25/24 13:53
Lab Results
09/25/24 10:54
09/25/24 10:54
Physical Exam
General: Well Developed, Well Nourished, No Apparent Distress and Comfortable
HEENT: Normocephalic, Anicteric and Moist Mucous Membranes
Respiratory: Crackles
Cardiac: S1/S2 and Regular Rhythm
Breast: Deferred by me
GI: Non Tender, Non Distended and Normal Bowel Sounds
Rectal: Deferred by Provider
Genito-urinary: No Costovertebral Tender
Musculoskeletal: No Clubbing
Skin: Warm and Dry
Neuro: Awake and Alert
Hematologic/Lymphatic: No Lymphadenopathy
Psych: Calm
Impression / Plan
-
I/P: 88F with paroxysmal atrial fibrillation (on Eliquis), pericardial effusion s/p pericardiocentesis (03/2024), HFrEF (35%), hyponatremia, moderate MR, moderate TR, dementia, HTN, & HLD presented with acute on chronic heart failure
Outpatient regional coordinator: Dr. Farooq
Acute hypoxic respiratory failure, in the setting of acute heart failure
- Diuresis as tolerated
HFrEF, acute on chronic
- Given furosemide 40 mg IV in the ER, intravenous diuresis requires intensive monitoring
- Denied changes to oral intake and sodium intake at home
- No SGLT2 with possible UTI
- Trend daily weight, I/O, and BMP with diuresis
- Heart failure education
Paroxysmal atrial fibrillation
- In sinus rhythm
- Oral Anticoagulation: Apixaban 2.5mg BID, 2 falls prior to this admission but may have UTI
- [id number]: score at least 5 (Heart failure, HTN, age 75 or more, female gender)
Falls
- At least 2 this week with abnormal UA
Moderate to severe mitral regurgitation, diuresis as above
Hyponatremia, chronic, follow with diuresis, managed by nephrology during prior admission, received Samsca
History of pericardial effusion, stable prior echo
Transthoracic echocardiogram, 08/30/2024:
CONCLUSIONS
Moderately reduced left ventricular systolic function.
Left ventricular ejection fraction is 35% by visual assessment.
Global hypokinesis.
Severe left atrial enlargement.
Moderate to severe mitral regurgitation.
Mild aortic regurgitation.
No significant change since the prior study of 05/14/2024 when MR was judged to
be moderate, PASP was estimated at 50-55 mmHg, and LVEF estimated at 40%.
Data Reviewed
-
EKG: Report Reviewed by me (Sinus rhythm, LBBB, rate 76)
[2024-09-25 17:31] LABS: NT-proBNP 8000 pg/ml
[2024-09-25] MEDS: ROCEPHIN 1000 MG IV (17:43)
[2024-09-25] MEDS: STERILE WATER FOR INJECTION 10 ML IV (17:44)
[2024-09-25 18:14] LABS: Iron 22 ug/dl (37-170)
[2024-09-25 18:23] LABS: Percent Saturation 11 % (20-50); Total Iron Binding Capacity 187 ug/dl (265-497)
--- NOTE | 2024-09-25 18:45 | PTCARENOTE ---
Received patient from ED on room air. Transported patient from stretcher to bed via slide. Pt placed on monitor- a-fib in the 80's noted. Pt expressed need to void, RN/PCT placed patient on bed quiroz. DTI noticed on tailbone region.
[2024-09-25 19:07] LABS: Folate 5.4 ng/ml (2.76-20); Vitamin B12 887 pg/ml (239-931)
[2024-09-25] MEDS: ELIQUIS 2.5 MG PO (20:42)
[2024-09-26] VITALS (8 sets, daily range): BP systolic 117–132; BP diastolic 51–65; PULSE 77–86; O2SAT 97; BMI 20.4
[2024-09-26 08:20] LABS: Hematocrit 29.2 % (37.0-47.0); Hemoglobin 9.7 g/dL (12.0-16.0); Mean Corp Hgb Conc. 33.2 g/dL (33.0-37.0); Mean Corpuscular Hgb 28.9 pg (27.0-31.0); Mean Corpuscular Volume 86.9 fL (81.0-99.0); Mean Platelet Volume 9.4 fL (7.4-10.4); Platelet Count 312 10^3/uL (130-400); Red Blood Cell Count 3.36 10^6/uL (4.20-5.40); Red Cell Dist. Width 14.3 % (11.5-14.5); White Blood Cell Count 4.1 10^3/uL (4.8-10.8)
[2024-09-26] MEDS: CRESTOR 5 MG PO (08:52)
[2024-09-26] MEDS: COZAAR 50 MG PO (08:52)
[2024-09-26] MEDS: COLCHICINE 0.6 MG PO (08:52)
[2024-09-26] MEDS: TOPROL XL 25 MG PO (08:52)
[2024-09-26] MEDS: PROTONIX 40 MG PO (08:52)
[2024-09-26] MEDS: ELIQUIS 2.5 MG PO ×2 (08:52→19:41)
[2024-09-26] MEDS: LASIX 40 MG IV (08:52)
[2024-09-26] MEDS: NORVASC 5 MG PO (08:52)
[2024-09-26 09:01] LABS: Blood Urea Nitrogen 19 mg/dl (7-17); Calcium 8.2 mg/dl (8.4-10.2); Carbon Dioxide 25 mmol/L (22-30); Chloride 100 mmol/L (98-107); Estimated Creatinine Clearance 55 ml/min; Glucose 81 mg/dl (70-99); Magnesium 1.8 mg/dl (1.6-2.3); Potassium 3.8 mmol/L (3.5-5.1); Sodium 131 mmol/L (135-145); eGFR > 60.00
--- NOTE | 2024-09-26 09:27 | PTOTSP ---
Speech Pathology
Clinical Swallow Evaluation
88F with admission for CHF exacerbation presents with s/s concerning for pharyngeal dysphagia characterized by coughing with all liquid and solid trials this date, as well as an extremely wet and weak vocal quality. Unclear if symptoms are related
to CHF exacerbation vs underlying aspiration. Would recommend NPO for now. Essential meds crushed in puree. Speech to follow up in the AM as able. If difficulties persist, patient would likely benefit from a video swallow study to further assess
safest and least restrictive diet level.
Recommend:
1. NPO
2. Essential meds crushed in puree
3. Hold ARHP at this time 2/2 tenuous respiratory status
4. Consider video swallow study if difficulties persist
5. DIRECTOR MARKET INTELLIGENCE service to follow up re: to advance diet as able; provide dysphagia tx at the acute care level
--- NOTE | 2024-09-26 11:46 | W.PN.CD ---
Today's Communication / Plan
-
- Continue Diuresis.
- Close to euvolemic already.
- Eliquis 2.5 mg BID
Impression / Plan
-
I/P: 88F with paroxysmal atrial fibrillation (on Eliquis), pericardial effusion s/p pericardiocentesis (03/2024), HFrEF (35%), hyponatremia, moderate MR, moderate TR, dementia, HTN, & HLD presented with acute on chronic heart failure
Outpatient consultant dietitian: Dr. Farooq
Acute hypoxic respiratory failure, in the setting of acute heart failure
- Diuresis as tolerated
HFrEF, acute on chronic
- Given furosemide 40 mg IV in the ER, intravenous diuresis requires intensive monitoring
- Denied changes to oral intake and sodium intake at home
- No SGLT2 with possible UTI
- Trend daily weight, I/O, and BMP with diuresis
- Heart failure education
-Continue lasix 40 mg IV qd for now.
Paroxysmal atrial fibrillation
- In sinus rhythm
- Oral Anticoagulation: Apixaban 2.5mg BID, 2 falls prior to this admission but may have UTI
- [id number]: score at least 5 (Heart failure, HTN, age 75 or more, female gender)
Falls
- At least 2 this week with abnormal UA
Moderate to severe mitral regurgitation, diuresis as above
Hyponatremia, chronic, follow with diuresis, managed by nephrology during prior admission, received Samsca
History of pericardial effusion, stable prior echo
Transthoracic echocardiogram, 08/30/2024:
CONCLUSIONS
Moderately reduced left ventricular systolic function.
Left ventricular ejection fraction is 35% by visual assessment.
Global hypokinesis.
Severe left atrial enlargement.
Moderate to severe mitral regurgitation.
Mild aortic regurgitation.
No significant change since the prior study of 05/14/2024 when MR was judged to
be moderate, PASP was estimated at 50-55 mmHg, and LVEF estimated at 40%.
Physical Exam
Vital Signs/Labs
Vital Signs
Temp Pulse Resp BP Pulse Ox
97.7 F 77 16 121/53 96
09/26/24 11:23 09/26/24 11:23 09/26/24 11:23 09/26/24 11:23 09/26/24 11:23
09/25/24 09/26/24 09/27/24
06:59 06:59 06:59
Actual Weight 52.305 kg
09/26/24 06:40
09/26/24 06:40
Magnesium 1.8 mg/dl (1.6-2.3) 09/26/24 06:40
09/25/24
10:54
Kpv-U-Eorlfcgvpsg Pept 8000
Physical Exam
Constitutional: No acute distress, Comfortable and Confusion
EENT: Anicteric and Moist mucous membranes
Cardiovascular: Rhythm & rate is regular, Pedal edema is absent, JVD present and Systolic murmur present
Respiratory: Respiratory effort normal, Wheeze Absent, Crackles Absent and Rhonchi Absent
GI: Soft, Distention absent, Non tender and Normal bowel sounds
Neuro/Psych: Alert, Oriented and AO x 3
Data Reviewed
-
Date of Service: September 26, 2024
Medical Decision Making: Reviewed Test Results, Test Interpretation and Review of Case with other Provider
EKG: Tracing Personally Visualized and interpreted
Echo: Report Reviewed by me
Labs: Labs Reviewed by me
Old Records: Reviewed
--- NOTE | 2024-09-26 12:10 | W.PN.HOSP.TC ---
Today's Communication/Plan
-
N.p.o.
Gentle IV fluids
PT/OT
Orthostatic vitals
Hold antibiotics
Speech therapy follow-up
Assessment / Plan
Assessment / Plan
Gen-awake, not oriented, no acute distress
HEENT-NC, AT, anicteric, clear oral mm
Neck-supple
CV-reg, no M, +S1/S2
Lungs-clear B/L
Abd-soft, NT, ND
Ext-no edema
Musculoskeletal-no cyanosis, clubbing, fading bruise over right knee
Skin-warm and dry
Neuro-grossly non-focal
Psych-calm, cooperative
Acute on chronic heart failure reduced EF -cardiology following. Continue IV Lasix.
Dysphagia -suspect chronic. Speech therapy recommends n.p.o. and will reassess tomorrow. Likely will need video swallowing study on Saturday. Dysphagia may be related to aging and dementia. If that is the case, that her prognosis is unfortunately
poor. Discussed in detail with patient's daughter Arinana on the phone. Recommend against feeding tube placement as it is not indicated in end-of-life care, especially in the setting of dementia.
Not sure if the dysphagia is related to her dysphonia. Daughter states that the dysphonia has been present for several months now and had a workup including ENT evaluation without a clear diagnosis.
Asymptomatic pyuria -doubt UTI. Hold further antibiotics and observe.
Normocytic anemia -unclear etiology. Hemoglobin was normal in June. Monitor for now. B12 and folic acid levels normal. No evidence of iron deficiency on labs.
Leukopenia -appears relatively recent onset. Unclear etiology. Monitor for now.
Paroxysmal atrial fibrillation -continue Eliquis, metoprolol.
Essential hypertension -stable.
Hyperlipidemia -rosuvastatin.
GERD
Hx pericardial effusion
Alzheimer's dementia
Chronic hyponatremia -sodium stable.
Chronic ambulatory dysfunction -with recent falls. Consult PT/OT. Suspect she has severe deconditioning and aging associated muscle weakness. Check orthostatic vitals.
DNR
Updated daughter Arianna on the phone.
Anticipated Discharge: > 48 hours
Subjective/Interval History
-
Date of Service: September 26, 2024
Patient seen and examined. Asking about discharge. Does have mild right knee pain.
Objective Data
-
Labs:
Laboratory Results
09/26/24
06:40
WBC 4.1 L
Hgb 9.7 L
Hct 29.2 L
Plt Count 312
Sodium 131 L
Potassium 3.8
Chloride 100
Carbon Dioxide 25
BUN 19 H
Creatinine 0.5 L
Glucose 81
Calcium 8.2 L
Vital Signs:
Vital Signs
Temp Pulse Resp BP Pulse Ox
97.7 F 77 16 121/53 96
09/26/24 11:23 09/26/24 11:23 09/26/24 11:23 09/26/24 11:23 09/26/24 11:23
Review of Systems
-
Unable to obtain full review of systems at this time due to: Dementia
History Source: Patient
All other systems: Reviewed and negative
[2024-09-26] MEDS: NSS 1000 IV (12:45)
--- NOTE | 2024-09-27 03:22 | PTCARENOTE ---
Pt with 11 beat run v tach on tele, house FINANCIAL SUPERVISOR aware.
--- NOTE | 2024-09-27 03:22 | PTCARENOTE ---
Pt voiding frequently, 25-50 mls at a time. Bladder scanned for 408 mls, house STONE CRUSHER OPERATOR notified order to cath. Pt straight cathed for 400 mls clear yellow urine.
[2024-09-27 03:36] VITALS: BP 125/52
[2024-09-27] MEDS: NSS 1000 IV (05:29)
[2024-09-27 06:00] VITALS: BMI 20.1
[2024-09-27 07:20] VITALS: BP 130/54
[2024-09-27] MEDS: PROTONIX 40 MG PO (08:07)
[2024-09-27] MEDS: CRESTOR 5 MG PO (08:07)
[2024-09-27] MEDS: TOPROL XL 25 MG PO (08:07)
[2024-09-27] MEDS: COLCHICINE 0.6 MG PO (08:07)
[2024-09-27] MEDS: NORVASC 5 MG PO (08:07)
[2024-09-27] MEDS: COZAAR 50 MG PO (08:07)
[2024-09-27] MEDS: ELIQUIS 2.5 MG PO (08:07)
[2024-09-27] MEDS: LASIX 40 MG IV (08:08)
--- NOTE | 2024-09-27 08:22 | W.PN.CD ---
Today's Communication / Plan
-
- Will hold all medications with the exception of metoprolol.
- If patient can take any medicine please give metoprolol.
- Hold Lasix.
Impression / Plan
-
I/P: 88F with paroxysmal atrial fibrillation (on Eliquis), pericardial effusion s/p pericardiocentesis (03/2024), HFrEF (35%), hyponatremia, moderate MR, moderate TR, dementia, HTN, & HLD presented with acute on chronic heart failure
Outpatient land measurer: Dr. Farooq
Acute hypoxic respiratory failure, in the setting of acute heart failure
- Appears euvolemic now.
- Unable to swallow. N.p.o. now.
- Speech therapy planned for tomorrow.
- On maintenance fluids
- With failure to thrive, advancing dementia and now difficulty swallowing with aspiration risk, patient may be heading towards hospice. Family understands and are looking for placement.
HFrEF, acute on chronic
- With n.p.o., will hold Lasix at this time. On maintenance IV fluids.
- Denied changes to oral intake and sodium intake at home
- No SGLT2 with possible UTI
- Trend daily weight, I/O, and BMP with diuresis
- Heart failure education
-Continue lasix 40 mg IV qd for now.
Paroxysmal atrial fibrillation
- In sinus rhythm
- Oral Anticoagulation: Apixaban 2.5mg BID, 2 falls prior to this admission but may have UTI
- [id number]: score at least 5 (Heart failure, HTN, age 75 or more, female gender)
Falls
- At least 2 this week with abnormal UA
Moderate to severe mitral regurgitation, diuresis as above
Hyponatremia, chronic, follow with diuresis, managed by nephrology during prior admission, received Samsca
History of pericardial effusion, stable prior echo
Transthoracic echocardiogram, 08/30/2024:
CONCLUSIONS
Moderately reduced left ventricular systolic function.
Left ventricular ejection fraction is 35% by visual assessment.
Global hypokinesis.
Severe left atrial enlargement.
Moderate to severe mitral regurgitation.
Mild aortic regurgitation.
No significant change since the prior study of 05/14/2024 when MR was judged to
be moderate, PASP was estimated at 50-55 mmHg, and LVEF estimated at 40%.
Physical Exam
Vital Signs/Labs
Vital Signs
Temp Pulse Resp BP Pulse Ox
97.8 F 83 18 130/54 96
09/27/24 07:20 09/27/24 08:07 09/27/24 07:20 09/27/24 08:07 09/27/24 07:20
09/26/24 09/27/24 09/28/24
06:59 06:59 06:59
Actual Weight 52.305 kg 51.511 kg
09/26/24 06:40
Magnesium 1.8 mg/dl (1.6-2.3) 09/26/24 06:40
09/25/24
10:54
Doe-S-Ovcdmkuzmbt Pept 8000
Physical Exam
Constitutional: No acute distress and Comfortable
EENT: Anicteric and Moist mucous membranes
Cardiovascular: Rhythm & rate is regular, Pedal edema is absent and JVD pressure is normal
Respiratory: Respiratory effort normal and Lungs clear to auscul.
GI: Soft, Non tender and Normal bowel sounds
Neuro/Psych: Alert and Other (Confused.)
Data Reviewed
-
Date of Service: September 27, 2024
Medical Decision Making: Reviewed Test Results, Test Interpretation and Review of Case with other Provider
EKG: Tracing Personally Visualized and interpreted
Echo: Report Reviewed by me
Medical Tests (PFT, Pathology etc): Report Reviewed by me, Discussed with Patient and Discussed with Family
Labs: Labs Reviewed by me
Old Records: Reviewed
[2024-09-27 08:39] LABS: Blood Urea Nitrogen 16 mg/dl (7-17); Calcium 8.2 mg/dl (8.4-10.2); Carbon Dioxide 25 mmol/L (22-30); Chloride 102 mmol/L (98-107); Estimated Creatinine Clearance 54 ml/min; Glucose 59 mg/dl (70-99); Magnesium 1.8 mg/dl (1.6-2.3); Potassium 3.8 mmol/L (3.5-5.1); Sodium 134 mmol/L (135-145); eGFR > 60.00
--- NOTE | 2024-09-27 11:18 | W.PN.HOSP.TC ---
Today's Communication/Plan
-
Speech therapy follow-up
Video swallowing study in a.m.
Assessment / Plan
Assessment / Plan
Gen-awake, not oriented, no acute distress
HEENT-NC, AT, anicteric, clear oral mm
Neck-supple
CV-reg, no M, +S1/S2
Lungs-clear B/L
Abd-soft, NT, ND
Ext-no edema
Musculoskeletal-no cyanosis, clubbing, fading bruise over right knee
Skin-warm and dry
Neuro-grossly non-focal
Psych-calm, cooperative
Acute on chronic heart failure reduced EF -cardiology following. Continue IV Lasix. Admission chest x-ray shows pulmonary edema, small bilateral pleural effusions.
Dysphagia -suspect chronic. Speech therapy recommends n.p.o. and will reassess today. Likely will need video swallowing study on Saturday. Dysphagia may be related to aging and dementia. If that is the case, then her prognosis is unfortunately
poor. Discussed in detail with patient's daughter Arianna on the phone. Recommend against feeding tube placement as it is not indicated in end-of-life care, especially in the setting of dementia.
Not sure if the dysphagia is related to her dysphonia. Daughter states that the dysphonia has been present for several months now and had a workup including ENT evaluation without a clear diagnosis.
Asymptomatic pyuria -doubt UTI. Hold further antibiotics and observe.
Normocytic anemia -unclear etiology. Hemoglobin was normal in June. Monitor for now. B12 and folic acid levels normal. No evidence of iron deficiency on labs.
Leukopenia -appears relatively recent onset. Unclear etiology. Monitor for now.
Paroxysmal atrial fibrillation -continue Eliquis, metoprolol.
Essential hypertension -stable.
Hyperlipidemia -rosuvastatin.
GERD -omeprazole.
Hx pericardial effusion
Alzheimer's dementia -appears to be progressing. CT head on admission without acute disease. Does show probable old infarct within the left frontal lobe. Mild chronic white matter disease.
Chronic hyponatremia -sodium 134 today.
Chronic ambulatory dysfunction -with recent falls. Consult PT/OT. Suspect she has severe deconditioning and aging associated muscle weakness. Not orthostatic.
DNR
Updated daughter Arianna in person. I did recommend hospice as an option especially if her dysphagia does not improve.
Anticipated Discharge: 24 - 48 hours
Subjective/Interval History
-
Date of Service: September 27, 2024
Patient seen and examined. Denies shortness of breath. Complaining of thirst.
Objective Data
-
Labs:
Laboratory Results
09/27/24
06:14
Sodium 134 L
Potassium 3.8
Chloride 102
Carbon Dioxide 25
BUN 16
Creatinine 0.5 L
Glucose 59 L
Calcium 8.2 L
Vital Signs:
Vital Signs
Temp Pulse Resp BP Pulse Ox
97.8 F 83 18 130/54 96
09/27/24 07:20 09/27/24 08:07 09/27/24 07:20 09/27/24 08:07 09/27/24 08:15
I&O
09/26/24 09/27/24 09/28/24
06:59 06:59 06:59
Intake Total 720 / 720
Output Total 175 / 175 400 / 400
Balance 545 / 545 -400 / -400
Review of Systems
-
History Source: Patient
All other systems: Reviewed and negative
[2024-09-27 11:34] VITALS: BP 128/49
[2024-09-27 15:04] VITALS: BP 113/50
[2024-09-27 19:49] LABS: Glucose - Point of Care 58 mg/dl (70-99)
[2024-09-27] MEDS: D5/0.9% SODIUM CHLORIDE 1000 IV (19:52)
[2024-09-27 20:02] VITALS: BP 133/59
--- NOTE | 2024-09-27 21:45 | PTCARENOTE ---
Pt noted on AM labs blood sugar 59, pt remains NPO throughout the day. At 194 accucheck completed 58. Pt asymptomatic. House RETAIL B[employer]ER notified order for d5NS 60/hr. Sugar repeated at 2144 70.
[2024-09-27 21:47] LABS: Glucose - Point of Care 70 mg/dl (70-99)
[2024-09-27 23:14] VITALS: BP 139/57
[2024-09-28 03:13] VITALS: BP 144/53
[2024-09-28 05:07] VITALS: BMI 19.6
[2024-09-28 06:24] LABS: Glucose - Point of Care 86 mg/dl (70-99)
[2024-09-28 07:06] LABS: Blood Urea Nitrogen 16 mg/dl (7-17); Calcium 8.4 mg/dl (8.4-10.2); Carbon Dioxide 24 mmol/L (22-30); Chloride 107 mmol/L (98-107); Estimated Creatinine Clearance 52 ml/min; Glucose 75 mg/dl (70-99); Potassium 3.9 mmol/L (3.5-5.1); Sodium 137 mmol/L (135-145); eGFR > 60.00
[2024-09-28 07:10] VITALS: BP 151/60
[2024-09-28] MEDS: CRESTOR PO (09:03)
[2024-09-28] MEDS: PROTONIX PO (09:04)
[2024-09-28] MEDS: COLCHICINE PO ×2 (09:15→09:22)
[2024-09-28] MEDS: TOPROL XL 25 MG PO (09:15)
--- NOTE | 2024-09-28 10:45 | WOUNDNOTE ---
R HIP BLANCHABLE PINK
--- NOTE | 2024-09-28 10:46 | WOUNDNOTE ---
HAYDER RN NOTE: Patient known to service, last seen for sacral DTI 04/10/24. Admitted with acute UTI, pneumonia. Patient is NPO due to dysphagia, hospice appropriate per Dr. Paredes, family making decision. Compared to last seen, sacral DTI improved,
sacral silicone foam applied. Spine is with blanchable red spot, silicone foam in use. Patient on Accumax, can turn self to sides, encouraged turning, Heels are intact. Repositioned to L semi side lying position. Nurse Alejandra aware of the above and
instructed to make sure patient turns every 2 hrs, can keep on same bed. If patient becomes difficult to turn, recommend adding an air overlay.
[2024-09-28 11:00] VITALS: BP 145/56
[2024-09-28] MEDS: D5/0.9% SODIUM CHLORIDE 1000 IV (11:54)
[2024-09-28 12:15] LABS: Glucose - Point of Care 102 mg/dl (70-99)
--- NOTE | 2024-09-28 13:23 | PTOTSP ---
Video Swallow Examination (VSE):
Patient presents with mild oral and severe to profound pharyngeal stage of swallowing. There was gross aspiration across all consistencies assessment. A weak reflexive cough response was ineffective at clearing materials from airway/vestibule. VSE
was terminated prior to completion due to frequency and amount of aspiration. Patient with chronic risk factors of dysphagia including dementia, however severity of dementia does not correlate with significance of dysphagia. Would consider further
neurology workup in addition to ENT consult given new onset of dysphonia. Please see patient care note for full details of penetration/aspiration and swallowing physiology.
Recommend:
1. GOC - Safest diet recommendation would be NPO�given gross aspiration across consistencies with poor airway clearance and ineffective compensatory strategies
2. If family opting for oral diet despite risks of aspiration, recommend puree and thin liquids given known negative pulmonary complications with aspiration of thickened liquids and weak cough response to cough dense solids out of airway
3. SPECIFICATION CONSULTANT to follow for education regarding results of VSE and for ongoing tx at the acute care level, pending pt/family wishes
--- NOTE | 2024-09-28 13:53 | W.PN.HOSP.TC ---
Addendum entered and electronically signed by Jaden Sotomayor DO 10/05/24 09:17:
CDI: Decubitus ulcer, stage II, POA
Original Note:
Today's Communication/Plan
-
N.p.o.
Hospice eval
Consideration of palliative feeding
Assessment / Plan
Assessment / Plan
#Acute on chronic heart failure reduced EF -cardiology following. IV lasix now held. Admission chest x-ray shows pulmonary edema, small bilateral pleural effusions.
#Dysphagia -suspect chronic. Dysphagia may be related to aging and dementia. If that is the case, then her prognosis is unfortunately poor. Video swallow exam with significant aspiration and subsequent recommendations for strict n.p.o. and GOC
discussions. Recommend against feeding tube placement as it is not indicated in end-of-life care, especially in the setting of dementia. Not sure if the dysphagia is related to her dysphonia. Daughter states that the dysphonia has been present for
several months now and had a workup including ENT evaluation without a clear diagnosis.
#Asymptomatic pyuria -doubt UTI. Hold further antibiotics and observe.
#Normocytic anemia -unclear etiology. Hemoglobin was normal in June. Monitor for now. B12 and folic acid levels normal. No evidence of iron deficiency on labs.
#Leukopenia -appears relatively recent onset. Unclear etiology. Monitor for now.
#Paroxysmal atrial fibrillation -continue Eliquis, metoprolol.
#Essential hypertension -stable.
#Hyperlipidemia -rosuvastatin.
#GERD -omeprazole.
#Hx pericardial effusion
#Alzheimer's dementia, H/O CVA -appears to be progressing. CT head on admission without acute disease. Does show probable old infarct within the left frontal lobe. Mild chronic white matter disease.
#Chronic hyponatremia -sodium 134 today.
#Chronic ambulatory dysfunction -with recent falls. Consult PT/OT. Suspect she has severe deconditioning and aging associated muscle weakness. Not orthostatic.
DNR --discussed with the patient's daughter Arianna, prognosis in medium to long-term is very poor due to her extensive aspiration risk. Family has elected for hospice discussions, consult placed. If family decides to go the route of hospice can
begin with palliative feeding, assuming risk of aspiration.
Anticipated Discharge: 24 - 48 hours
Subjective/Interval History
-
Date of Service: September 28, 2024
Seen and examined at the bedside. No acute events overnight. AFVSS this morning
Underwent VSE with speech, did not go well and patient had significant aspiration. Recommendation for strict n.p.o. status and goals of care discussion.
ROS limited from baseline dementia
Objective Data
-
Labs:
Laboratory Results
09/28/24
05:48
Sodium 137
Potassium 3.9
Chloride 107
Carbon Dioxide 24
BUN 16
Creatinine 0.5 L
Glucose 75
Calcium 8.4
Vital Signs:
Vital Signs
Temp Pulse Resp BP Pulse Ox
97.6 F 78 18 145/56 95
09/28/24 11:00 09/28/24 11:00 09/28/24 11:00 09/28/24 11:00 09/28/24 11:00
I&O
09/27/24 09/28/24 09/29/24
06:59 06:59 06:59
Intake Total 720 / 720
Output Total 175 / 175 1450 / 1450
Balance 545 / 545 -1450 / -1450
Review of Systems
-
History Source: Patient
All other systems: Reviewed and negative
Physical Exam
-
General: Well Developed, No Apparent Distress, Appears Chronically Ill and Cachectic
HEENT: Normocephalic, Atraumatic, Moist Mucous Membranes and Anicteric
Respiratory: Clear to Auscultation and Non Labored Respirations
Cardiac: Regular Rhythm and S1/S2; Negative Murmur, Rub or Gallop
GI: Soft, Nontender, Nondistended and Normal Bowel Sounds
Musculoskeletal: No Clubbing, No Cyanosis and No Edema
Skin: Warm and Dry; Negative Rash
Neuro: Awake, Alert and Nonfocal/Grossly Intact; Negative Oriented or Tremors
Psych: Calm
--- NOTE | 2024-09-28 14:57 | W.PN.CD ---
Today's Communication / Plan
-
Oral meds on hold
IV lasix on hold
Watch volume status
Workup per medicine
Impression / Plan
-
Background: 88F with paroxysmal atrial fibrillation (on Eliquis), pericardial effusion s/p pericardiocentesis (03/2024), HFrEF (35%), hyponatremia, moderate MR, moderate TR, dementia, HTN, & HLD presented with acute on chronic heart failure.
Outpatient child support case officer: Dr. Farooq
Acute on chronic HFrEF
- Improved, appears euvolemic now.
- Unable to swallow. Still NPO
- Speech therapy evaluation is planned
- On maintenance fluids
- With failure to thrive, advancing dementia and now difficulty swallowing with aspiration risk, patient may be heading towards hospice. Family understands and are looking for placement.
HFrEF, acute on chronic
- With n.p.o., will hold Lasix at this time. On maintenance IV fluids.
- Denied changes to oral intake and sodium intake at home
- No SGLT2 with possible UTI
- Trend daily weight, I/O, and BMP with diuresis
- Heart failure education
-Continue Lasix 40 mg IV qd ==>> Still on HOLD
Paroxysmal atrial fibrillation
- In sinus rhythm
- Oral Anticoagulation: Apixaban 2.5mg BID, 2 falls prior to this admission but may have UTI => Eliquis on HOLD while NPO
- [id number]: score at least 5 (Heart failure, HTN, age 75 or more, female gender)
Falls
- At least 2 this week with abnormal UA
Moderate to severe mitral regurgitation, diuresis as above
Hyponatremia, chronic, follow with diuresis, managed by nephrology during prior admission, received Samsca
History of pericardial effusion, stable prior echo
Subjective:
Pleasant, denies CP/Dyspnea
Transthoracic echocardiogram, 08/30/2024:
CONCLUSIONS
Moderately reduced left ventricular systolic function.
Left ventricular ejection fraction is 35% by visual assessment.
Global hypokinesis.
Severe left atrial enlargement.
Moderate to severe mitral regurgitation.
Mild aortic regurgitation.
No significant change since the prior study of 05/14/2024 when MR was judged to
be moderate, PASP was estimated at 50-55 mmHg, and LVEF estimated at 40%.
Physical Exam
Vital Signs/Labs
Vital Signs
Temp Pulse Resp BP Pulse Ox
97.6 F 78 18 145/56 95
09/28/24 11:00 09/28/24 11:00 09/28/24 11:00 09/28/24 11:00 09/28/24 11:00
09/27/24 09/28/24 09/29/24
06:59 06:59 06:59
Actual Weight 51.511 kg 50.122 kg
09/26/24 06:40
09/28/24 05:48
Magnesium 1.8 mg/dl (1.6-2.3) 09/27/24 06:14
09/25/24
10:54
[id number] Pept 8000
Physical Exam
Constitutional: No acute distress and Comfortable
Cardiovascular: Pedal edema is absent
Respiratory: Crackles Absent
GI: Soft
Data Reviewed
-
Date of Service: September 28, 2024
[2024-09-28 15:10] VITALS: BP 137/59
--- NOTE | 2024-09-28 16:13 | HOSPNOTE ---
Referral received. Called Arianna as instructed by KENTON and Arianna asked that she call me in the morning to discuss. Provided direct phone number and stated that it was okay to call to discuss in the morning. More information to follow.
--- NOTE | 2024-09-28 17:13 | PTCARENOTE ---
Patient voiding small amounts multiple times. PVR 414. Straight cath output 400ml.
--- NOTE | 2024-09-28 17:38 | CM ---
Received at consult for hospice.
Spoke with dgt Arianna she requested Hospice to speak with her on hospice.
Referral done in care port.
PLAN hospice
[2024-09-28 18:11] LABS: Glucose - Point of Care 97 mg/dl (70-99)
[2024-09-28 23:18] VITALS: BP 141/62
[2024-09-29 00:22] LABS: Glucose - Point of Care 103 mg/dl (70-99)
[2024-09-29] MEDS: D5/0.9% SODIUM CHLORIDE 500 IV (04:22)
[2024-09-29 05:04] VITALS: BMI 19.7
[2024-09-29 05:51] LABS: Glucose - Point of Care 125 mg/dl (70-99)
[2024-09-29] MEDS: TOPROL XL PO (07:22)
[2024-09-29] MEDS: CRESTOR PO (07:22)
[2024-09-29] MEDS: PROTONIX PO (07:22)
[2024-09-29] MEDS: COLCHICINE PO (07:22)
[2024-09-29 07:31] VITALS: BP 141/58
[2024-09-29 08:10] LABS: Glucose - Point of Care 132 mg/dl (70-99)
--- NOTE | 2024-09-29 09:31 | CM ---
Spoke with Vikas they want hospice at a SNF.
They said they have a termite treater care policy to cover [place] of room and board at a SNF.
Referral made to [facility] [place] as requested.
Family to speak with Hospice .
PLAN To SNF for Hospice
--- NOTE | 2024-09-29 10:07 | HOSPNOTE ---
Spoke to daughters over the phone. Reviewed hospice and the philosophy. Reviewed home hospice vs SNF with hospice. Daughters wish to discuss with family. They also had some questions regarding the feeding tube placement. Attending is going to speak
with family. CM and attending are updated. Hospice will continue to follow and be available when a decision is made.
[2024-09-29 12:37] LABS: Glucose - Point of Care 108 mg/dl (70-99)
--- NOTE | 2024-09-29 13:26 | W.PN.HOSP.TC ---
Today's Communication/Plan
-
hospice planning
Assessment / Plan
Assessment / Plan
#Acute on chronic heart failure reduced EF -cardiology following. IV lasix now held. Admission chest x-ray shows pulmonary edema, small bilateral pleural effusions.
#Dysphagia -suspect chronic. Dysphagia may be related to aging and dementia. If that is the case, then her prognosis is unfortunately poor. Video swallow exam with significant aspiration and subsequent recommendations for strict n.p.o. and GOC
discussions. Recommend against feeding tube placement as it is not indicated in end-of-life care, especially in the setting of dementia. Not sure if the dysphagia is related to her dysphonia. Daughter states that the dysphonia has been present for
several months now and had a workup including ENT evaluation without a clear diagnosis.
#Asymptomatic pyuria -doubt UTI. Hold further antibiotics and observe.
#Normocytic anemia -unclear etiology. Hemoglobin was normal in June. Monitor for now. B12 and folic acid levels normal. No evidence of iron deficiency on labs.
#Leukopenia -appears relatively recent onset. Unclear etiology. Monitor for now.
#Paroxysmal atrial fibrillation -continue Eliquis, metoprolol.
#Essential hypertension -stable.
#Hyperlipidemia -rosuvastatin.
#GERD -omeprazole.
#Hx pericardial effusion
#Alzheimer's dementia, H/O CVA -appears to be progressing. CT head on admission without acute disease. Does show probable old infarct within the left frontal lobe. Mild chronic white matter disease.
#Chronic hyponatremia -sodium 134 today.
#Chronic ambulatory dysfunction -with recent falls. Consult PT/OT. Suspect she has severe deconditioning and aging associated muscle weakness. Not orthostatic.
DNR --
Dispo: Discussed options, plan is hospice - will aim for comfort meds; restart diet - family understanding risk of aspiration although now onhospice; CM aware
Anticipated Discharge: Within 24 hours
Subjective/Interval History
-
Date of Service: September 29, 2024
wants to eat something, resting in bed
Objective Data
-
Vital Signs:
Vital Signs
Temp Pulse Resp BP Pulse Ox
98 F 76 16 141/58 96
09/29/24 07:31 09/29/24 07:31 09/29/24 07:31 09/29/24 07:31 09/29/24 07:31
I&O
09/28/24 09/29/24 09/30/24
06:59 06:59 06:59
Output Total 1450 / 1450 560 / 560
Balance -1450 / -1450 -560 / -560
Review of Systems
-
History Source: Patient
All other systems: Not reviewed unless documented
Physical Exam
-
General: Well Developed, No Apparent Distress, Appears Chronically Ill and Cachectic
HEENT: Normocephalic, Atraumatic, Moist Mucous Membranes and Anicteric
Respiratory: Clear to Auscultation and Non Labored Respirations
Cardiac: Regular Rhythm and S1/S2; Negative Murmur, Rub or Gallop
GI: Soft, Nontender, Nondistended and Normal Bowel Sounds
Musculoskeletal: No Clubbing, No Cyanosis and No Edema
Skin: Warm and Dry; Negative Rash
Neuro: Awake, Alert and Nonfocal/Grossly Intact; Negative Oriented or Tremors
Psych: Calm
Data Reviewed
-
Diagnostic Radiology: Report Reviewed by me
Labs: Labs Reviewed by me
--- NOTE | 2024-09-29 14:25 | PN.CDI ---
CDI
- -
CDI:
Physician Documentation Request
Admit Date: 09/25/24 17:03
Dear Doctor Bran,
Patient admitted with acute on chronic systolic CHF.
09/28 Nursing skin assessment by TERRENCE,' DTI (Deep Tissue Injury) sacral pressure injury, POA.'
Physician documentation of the type and location of wounds is required for compliant documentation. Based on the above clinical findings and your assessment, please provide the following in your progress note:
Type (etiology) of ulcer/wound:
- Pressure (decubitus) ulcer
- Other
- Unable to determine
For a pressure ulcer, please also include the stage* of the ulcer:
- Stage 1 - Skin intact, non-blanchable redness
- Stage 2 - Partial thickness loss of dermis, includes intact or open blister
- Stage 3 - Full thickness tissue not including bone, tendon or muscle
- Stage 4 - Full thickness tissue loss, including exposed bone, tendon or muscle
- Unstageable - Full thickness loss in which the base of the ulcer is covered by slough (yellow, patricia, scott, green or brown) and/or eschar (patricia, brown or black) in the wound bed.
- Unable to determine
Use of terms such as suspected, likely, concern for, or probable (associated with a specific diagnosis that is being evaluated, monitored, or treated as if it exists) are acceptable and can be coded in the inpatient setting, when documented at the
time of discharge.
Thank you,
Kimi WHITE,RN,CCDS
CDI Specialist
Available via tiger text
Please use your independent medical judgment in providing your response.
*Source: National Pressure Ulcer Advisory Panel (NPUAP)
[2024-09-29 15:43] VITALS: BP 135/47
[2024-09-29] MEDS: TRANSDERM-SCOP 1 PATCH TRANSDERM (16:39)
[2024-09-29 23:33] VITALS: BP 133/53
[2024-09-30 03:27] VITALS: BMI 20.3
[2024-09-30 07:55] VITALS: BP 143/59
[2024-09-30] MEDS: TOPROL XL 25 MG PO (08:22)
[2024-09-30] MEDS: COLCHICINE 0.6 MG PO (08:22)
--- NOTE | 2024-09-30 13:24 | W.PN.HOSP.TC ---
Today's Communication/Plan
-
awaiting cm dispo planning, dc on hospice
Assessment / Plan
Assessment / Plan
#Acute on chronic heart failure reduced EF -cardiology following. IV lasix now held. Admission chest x-ray shows pulmonary edema, small bilateral pleural effusions.
#Dysphagia -suspect chronic. Dysphagia may be related to aging and dementia. If that is the case, then her prognosis is unfortunately poor. Video swallow exam with significant aspiration and subsequent recommendations for strict n.p.o. and GOC
discussions. Recommend against feeding tube placement as it is not indicated in end-of-life care, especially in the setting of dementia. Not sure if the dysphagia is related to her dysphonia. Daughter states that the dysphonia has been present for
several months now and had a workup including ENT evaluation without a clear diagnosis.
#Asymptomatic pyuria -doubt UTI. Hold further antibiotics and observe.
#Normocytic anemia -unclear etiology. Hemoglobin was normal in June. Monitor for now. B12 and folic acid levels normal. No evidence of iron deficiency on labs.
#Leukopenia -appears relatively recent onset. Unclear etiology. Monitor for now.
#Paroxysmal atrial fibrillation -continue Eliquis, metoprolol.
#Essential hypertension -stable.
#Hyperlipidemia -rosuvastatin.
#GERD -omeprazole.
#Hx pericardial effusion
#Alzheimer's dementia, H/O CVA -appears to be progressing. CT head on admission without acute disease. Does show probable old infarct within the left frontal lobe. Mild chronic white matter disease.
#Chronic hyponatremia -sodium 134 today.
#Chronic ambulatory dysfunction -with recent falls. Consult PT/OT. Suspect she has severe deconditioning and aging associated muscle weakness. Not orthostatic.
DNR --
Dispo: Discussed options, plan is hospice - will aim for comfort meds; restart diet - family understanding risk of aspiration although now onhospice; CM aware = awaiting placement
Anticipated Discharge: Today
Subjective/Interval History
-
Date of Service: September 30, 2024
no acute events
Objective Data
-
Vital Signs:
Vital Signs
Temp Pulse Resp BP Pulse Ox
98.1 F 84 16 143/59 93
09/30/24 07:55 09/30/24 07:55 09/30/24 07:55 09/30/24 07:55 09/30/24 07:55
I&O
09/29/24 09/30/24 10/01/24
06:59 06:59 06:59
Intake Total 300 / 300
Output Total 560 / 560 1025 / 1025
Balance -560 / -560 -725 / -725
Review of Systems
-
History Source: Patient
All other systems: Not reviewed unless documented
Physical Exam
-
General: Well Developed, No Apparent Distress, Appears Chronically Ill and Cachectic
HEENT: Normocephalic, Atraumatic, Moist Mucous Membranes and Anicteric
Respiratory: Clear to Auscultation and Non Labored Respirations
Cardiac: Regular Rhythm and S1/S2; Negative Murmur, Rub or Gallop
GI: Soft, Nontender, Nondistended and Normal Bowel Sounds
Musculoskeletal: No Clubbing, No Cyanosis and No Edema
Skin: Warm and Dry; Negative Rash
Neuro: Awake, Alert and Nonfocal/Grossly Intact; Negative Oriented or Tremors
Psych: Calm
[2024-09-30 15:05] VITALS: BP 127/51
[2024-09-30 22:00] VITALS: BMI 20.2
[2024-09-30 23:16] VITALS: BP 129/53
[2024-10-01 05:56] VITALS: BMI 20.2
[2024-10-01 07:15] VITALS: BP 142/60
[2024-10-01] MEDS: COLCHICINE 0.6 MG PO (08:16)
[2024-10-01] MEDS: FLUSH (NSS) 1 FLUSH IV (08:17)
[2024-10-01] MEDS: TOPROL XL 25 MG PO (08:17)
--- NOTE | 2024-10-01 11:04 | CM ---
Addendum entered by Christina Alvarez RN 10/01/24 16:32:
Spoke with Arianna family agrees with [facility] on Hospice. Ambulance set up
Pt told she was going to [facility]. She agreed she was going today.
Original Note:
Mack at [facility] has accepted pt under hospice
Spoke with [place] sol she said they are touring facility today and will confirm after tour.
Dgt requested ambulance Medical nec form completed.
DNR OOH form on chart for MD signature.
IMM explained and emailed to [email or web address] as requested.
[facility]
report [phone]
fax [phone]
PLAN To [facility] for Hospice after confirmation from family
--- NOTE | 2024-10-01 12:24 | W.PN.HOSP.TC ---
Addendum entered and electronically signed by Hany Luis MD 10/01/24 15:32:
[id number]
Original Note:
Today's Communication/Plan
-
dc to snf with hospice
Assessment / Plan
Assessment / Plan
#Acute on chronic heart failure reduced EF -cardiology following. IV lasix now held. Admission chest x-ray shows pulmonary edema, small bilateral pleural effusions.
#Dysphagia -suspect chronic. Dysphagia may be related to aging and dementia. If that is the case, then her prognosis is unfortunately poor. Video swallow exam with significant aspiration and subsequent recommendations for strict n.p.o. and GOC
discussions. Recommend against feeding tube placement as it is not indicated in end-of-life care, especially in the setting of dementia. Not sure if the dysphagia is related to her dysphonia. Daughter states that the dysphonia has been present for
several months now and had a workup including ENT evaluation without a clear diagnosis.
#Asymptomatic pyuria -doubt UTI. Hold further antibiotics and observe.
#Normocytic anemia -unclear etiology. Hemoglobin was normal in June. Monitor for now. B12 and folic acid levels normal. No evidence of iron deficiency on labs.
#Leukopenia -appears relatively recent onset. Unclear etiology. Monitor for now.
#Paroxysmal atrial fibrillation -continue Eliquis, metoprolol.
#Essential hypertension -stable.
#Hyperlipidemia -rosuvastatin.
#GERD -omeprazole.
#Hx pericardial effusion
#Alzheimer's dementia, H/O CVA -appears to be progressing. CT head on admission without acute disease. Does show probable old infarct within the left frontal lobe. Mild chronic white matter disease.
#Chronic hyponatremia -sodium 134 today.
#Chronic ambulatory dysfunction -with recent falls. Consult PT/OT. Suspect she has severe deconditioning and aging associated muscle weakness. Not orthostatic.
DNR --
Dispo: Discussed options, plan is hospice - will aim for comfort meds; restart diet - family understanding risk of aspiration although now onhospice; CM aware = awaiting placement; DC today to SNF with hospice
Anticipated Discharge: Today
Subjective/Interval History
-
Date of Service: October 01, 2024
no acute events
Objective Data
-
Vital Signs:
Vital Signs
Temp Pulse Resp BP Pulse Ox
97.3 F 75 18 142/60 94
10/01/24 07:15 10/01/24 08:17 10/01/24 07:15 10/01/24 08:17 10/01/24 08:15
I&O
09/30/24 10/01/24 10/02/24
06:59 06:59 06:59
Intake Total 300 / 300 180 / 180
Output Total 1025 / 1025 350 / 350
Balance -725 / -725 -170 / -170
Review of Systems
-
History Source: Patient
All other systems: Not reviewed unless documented
Physical Exam
-
General: Well Developed, No Apparent Distress, Appears Chronically Ill and Cachectic
HEENT: Normocephalic, Atraumatic, Moist Mucous Membranes and Anicteric
Respiratory: Clear to Auscultation and Non Labored Respirations
Cardiac: Regular Rhythm and S1/S2; Negative Murmur, Rub or Gallop
GI: Soft, Nontender, Nondistended and Normal Bowel Sounds
Musculoskeletal: No Clubbing, No Cyanosis and No Edema
Skin: Warm and Dry; Negative Rash
Neuro: Awake, Alert and Nonfocal/Grossly Intact; Negative Oriented or Tremors
Psych: Calm
--- NOTE | 2024-10-01 12:32 | W.DS.TRANS ---
DC Summary - [employer] Mule [employer]
-
Discharge Instructions:
Discharge Diagnosis/Procedures Acute on chronic heart failure reduced EF
Dysphagia
History of Alzheimer's dementia
Activity As tolerated
Instructions: *CBC Heart Failure Instructions
Stand-Alone Forms:
Changes to Home Medications: Yes
Discharge Medications:
DC Medications w/original date entered in [facility]
omeprazole 40 mg capsule,delayed release 40 mg PO DAILY Gastrointestinal Issue 04/02/24
vitamins A,C,Z-qujs-gckoyv 4,296 mcg-226 mg-90 mg capsule (PreserVision AREDS) 1 cap PO BID Supplement 04/02/24
colchicine 0.6 mg tablet 0.6 mg PO DAILY #0 tabs 04/10/24
metoprolol succinate 25 mg tablet,extended release 24 hr 25 mg PO DAILY Blood Pressure 09/06/24
furosemide 20 mg tablet 20 mg PO DAILY #30 tabs 09/09/24
acetaminophen 325 mg tablet (Tylenol) 650 mg PO Q6HPRN PRN mild pain 09/25/24
polyethylene glycol 3350 17 gram oral powder packet (Miralax) 8.5 g PO Q48H Gastrointestinal Issue 09/25/24
scopolamine base 1 mg over 3 days transdermal patch 1 patch transdermal Q72H #0 ea 10/01/24
Home Medication Changes
scopolamine base 1 mg over 3 days transdermal patch 1 patch transdermal Q72H #0 ea 10/01/24
Pending Results: No
[2024-10-01 15:25] VITALS: BP 131/58
--- NOTE | 2024-10-01 16:14 | PTCARENOTE ---
Pt drowsy but arousable; alert; oriented x3 when awake; very forgetful. RODRIGUEZ weakly. VS. On room air- pulse ox 92%, no c/o SOB. Abd soft, sl rounded, ariel IDDI 4 diet; appetite fair to poor. Rasheed P/I mod amts yellow urine. Resting quietly at
present; awaiting transport to SNF.
--- NOTE | 2024-10-02 09:30 | W.HF.CON ---
Heart Failure
- LV Function
Left ventricular function study result: LV Ejection fraction </= 35%
Ejection Fraction Percentage: 35
- ARNI
Patient already on ARNI: No
Heart Failure ARNI Contraindication: Comfort Measures Only
- ACEI/ARB
Patient already on ACEI/ARB: No
Heart Failure ACEI/ARB Contraindication: Comfort Measures Only
- Beta Quang
Patient already on Evidence Based Beta Quang: Yes
- Mineralocorticord Receptor Antagonist
Patient already on MRA: No
Heart Failure MRA Contraindication: Comfort Measures Only
- SGLT-2 Inhibitor
Patient already on SGLT-2 Inhibitor: No
Heart Failure SGLT-2 Inhibitor Contraindication: Comfort Measures
- Afib Anticoagulation
Patient already on Anticoagulation for Afib: No
Heart Failure Afib Anticoagulation Contraindication: Comfort Measures Only
- NYHA CHF Classification
NYHA CHF Classification Level: Class III - Symptoms w/ min exertion, interferes w/ nml daily activity
- ACC/AHA Stage
ACC/AHA Stage: Stage D: Advanced Heart Failure
== END 2024-10-01 17:46 | DRG 291 ==
LOC: 4 EAST ACU 17:03
PROVIDERS: Physician Assistant; Physician Assistant Medical; ADMITTING PHYSICIAN Hospitalist; ATTENDING PHYSICIAN Internal Medicine; CONSULT PHYSICIAN Internal Medicine Cardiovascular Disease; EMERGENCY PHYSICIAN Emergency Medicine; FAMILY PHYSICIAN Physician Assistant
DX: I11.0 Hypertensive heart disease with heart failure (principal); I50.23 Acute on chronic systolic (congestive) heart failure; J96.01 Acute respiratory failure with hypoxia; E87.1 Hypo-osmolality and hyponatremia; I48.0 Paroxysmal atrial fibrillation; Z79.01 Long term (current) use of anticoagulants; K21.9 Gastro-esophageal reflux disease without esophagitis; Z66 Do not resuscitate; E78.00 Pure hypercholesterolemia, unspecified; G30.9 Alzheimer's disease, unspecified; F02.80 Dementia in other diseases classified elsewhere, unspecified severity, without behavioral disturbance, psychotic disturbance, mood disturbance, and anxiety; R13.10 Dysphagia, unspecified; Z79.899 Other long term (current) drug therapy; L89.152 Pressure ulcer of sacral region, stage 2
CPT/HCPCS: 36415; 70450; 71046; 72125; 74230; 80048; 80053; 81003; 81015; 82550; 82607; 82728; 82746; 82962; 83540; 83550; 83735; 83880; 84443; 85025; 85027; 87077; 87086; 87186; 92526; 92610; 92611; 93005; 96374; 96375; 97116; 97167; 97530; 99285